=== PATIENT | female | born 1935 | race African-American/Black ===

== ENCOUNTER 2017-04-25 03:05 | Inpatient (IN) | payer MEDICARE, MEDICAID ==
[2017-04-25 04:47] LABS: #Lymphocytes 0.9 thou/uL (1.20-3.40); #Monocytes 0.2 thou/uL (0.11-0.59); #Neutrophils 5.4 thou/uL (1.40-6.50); %Basophils 0.1 % (0.0-1.0); %Eosinophils 0.5 % (0.0-10.0); %Lymphocytes 14.1 % (21.0-51.0); %Monocytes 3.2 % (0.0-10.0); Mean Corpuscular HGB CONC 32.7 g/dL (32.0-36.0); Mean Corpuscular Hemoglobin 29.6 pg (27.0-31.0); Mean Corpuscular Volume 90.3 fl (81.0-99.0); Mean Platelet Volume 9.1 fL (7.4-10.4); Platelet Count 166 thou/uL (130-400); Red Blood Cell (RBC) Count 4.73 mill/uL (4.20-5.40); White Blood Cell (WBC) Count 6.6 thou/uL (4.8-10.8)
[2017-04-25 04:50] LABS: Base Excess-Venous 1.1 mmol/L (-30.0-30.0); Bicarbonate (HCO3v) 25.8 mmol/L (1.0-85.0); CO2 Tension (PvCO2) 40.5 mmHg (41.0-51.0); Calcium, Ionized 1.29 mmol/L (1.12-1.32); Hemoglobin - Calc 16.6 g/dL (12.0-18.0); O2 Tension (PvO2) 93.2 mmHg (35.0-45.0); Potassium 3.8 mmol/L (3.4-4.7); T. Carbon Dioxide 27.1 mmol/L (1.0-85.0); pH (Venous) 7.412 (7.35-7.45); vO2 Saturation-calc 97.3 % (0.0-100.0)
[2017-04-25 04:58] LABS: ALT (SGPT) 9 U/L (8-55); AST (SGOT) 13 U/L (5-34); Albumin 3.4 g/dL (3.4-4.8); Alkaline Phosphatase 70 U/L (40-150); Anion Gap 11 mmol/L (10-20); BUN (Urea Nitrogen) 13 mg/dL (9.8-20.1); Bilirubin, Total 0.3 mg/dL (0.2-1.2); Calc. Creatinine Clearance 0 mL/min (70-130); Calcium 10.5 mg/dL (7.8-10.44); Carbon Dioxide 26 mmol/L (23-31); Chloride 103 mmol/L (98-107); Estimated GFR-MDRD 87; Globulin 4.4 g/dL (2.4-3.5); Glucose 127 mg/dL (83-110); Potassium 3.6 mmol/L (3.5-5.1); Protein, Total 7.8 g/dL (6.0-8.3); Sodium 136 mmol/L (136-145)
[2017-04-25 05:02] LABS: CKMB 0.4 ng/mL (0-6.6); Troponin I 0.024 ng/mL (< 0.028)
[2017-04-25 06:31] LABS: Bilirubin Negative (Negative); Blood, Urine Small (Negative); Clarity CLEAR (Clear); Glucose, Urine (Dipstick) Negative (Negative); Leukocyte Moderate (Negative); Nitrite Positive (Negative); Protein, Urine (Dipstick) Negative (Neg-Trace); Urobilinogen 0.2 mg/dL (0.2-1.0)
[2017-04-25 06:37] LABS: Bacteria/HPF 2+ HPF (None Seen); Hyaline Casts/LPF 4-6 HYALINE CAST LPF (0-3 Hyaline); Squamous Epithelial 0-3 HPF (0-3); WBC/HPF 21-50 HPF (0-3)
[2017-04-25] MEDS ORDERED: Ondansetron ODT 4 MG TAB PO PRN (06:40)
[2017-04-25] MEDS ORDERED: Ondansetron HCl/PF 4 MG/2 ML Vial IVP PRN (06:41)
[2017-04-25] MEDS ORDERED: Acetaminophen 325 MG TAB PO PRN (06:41)
[2017-04-25] MEDS ORDERED: Azithromycin 500 MG, Admixture Fee 1 EACH in Sodium Chloride 0.9% 250 ML 250 ML IVPB SCH (07:00)
[2017-04-25 07:47] VITALS: BMI 27.8
[2017-04-25] MEDS ORDERED: cefTRIAXone\\ROCEPHIN 1 GM, Syringe 0.4 ML in Sterile Water 9.6 ML SLOW IVP SCH (09:00)
[2017-04-25] MEDS ORDERED: Acetaminophen 650 MG/20.3 ML UDCUP PER TUBE PRN (09:07)
[2017-04-25] MEDS ORDERED: guaiFENesin 100 MG/5 ML UDCUP PO PRN (09:17)
--- NOTE | 2017-04-25 09:24 | RAD ---
CHEST ONE VIEW: History: Shortness of breath. Comparison: Same day. FINDINGS: Exam is limited due to rightward patient rotation. Heart size is enlarged. There is dilatation of the pulmonary arteries. Granuloma in the right lung base. Right basilar opacity is present. IMPRESSION: 1. Concern for right basilar airspace opacity. This may reflect pneumonia, atelectasis, or may be seq uellae of patient rotation. Follow up recommended. 2. Pulmonary arterial hypertension. POS: DANAH
--- NOTE | 2017-04-25 09:49 | HP ---
DATE OF CONSULTATION: 04/25/2017 CHIEF COMPLAINT: Cough. HISTORY OF PRESENT ILLNESS: This is a 81-year-old female with a prior history of CVA in 2013 and sub sequent dysphagia and placement of a PEG tube. She presents today with a 2-day history of cough. Cyrus mcclure is currently non-conversant and the history is obtained from her son who is with her at bedside . The patient's son is a marginal historian and indicates that the patient has been having a cough for the last 2 days. At baseline, he indicates she is occasionally able to monosyllable converse and she has been unable to do this over the last 2 days. He is concerned about her ability to swallow. He is concerned about her ability to cough and he wonders if she might be able to "eat again" through he r mouth. The patient appears to have been transferred from another facility initially for hypoxia with initial pulse oximetry of 86% noted on room air at an outside facility. The patient has been placed on nasa l cannula by her emergency department and is being admitted today for concern of pneumonia. REVIEW OF SYSTEMS: Unable to obtain directly from the patient, per her son at bedside, the patient h as not had any fevers, chills, diarrhea, indication of pain or sick contacts within the last week. PAST MEDICAL HISTORY: 1. As per HPI. Patient herself is unable to provide. Looking at prior records and discussing with the patient's son, it appears that patient had CVA in 2013 with subsequent dysphagia and requirement of a PEG tube which was placed at that point in time. 2. Hypertension. 3. Question of aortic stenosis. 4. Seizure disorder. HOME MEDICATIONS: Please see the EMR for full details. The patient's son states that himself and ot her family members administered the patient's medications through her PEG tube. He states the patien t has not been able to take any over the counter medications for her cough over the last 2 days and t hat there have been no changes in the last month. ALLERGIES: No known drug allergies listed in the EMR. FAMILY HISTORY: Recent family history of upper respiratory infection. SOCIAL HISTORY: The patient currently resides at home with family and home health. The patient's so n at bedside endorses a FULL CODE status with the patient at this point in time no active tobacco, al cohol or illicit drug use. PHYSICAL EXAMINATION: VITAL SIGNS: Temperature of 98.1, pulse of 88, respirations 20, satting 92% on 2 liters nasal cannul a, blood pressure of 120/72. GENERAL: The patient is awake. She is alert. She is seated in the bed. She appears to interact, b ut does not vocalize, but does verbalize. HEENT: Slightly dry mucous membranes. Equal ocular motions are intact. Nasal cannula in a nonthera peutic position. CARDIOVASCULAR: S1 and S2. Pulses 2+ bilateral upper extremities, 1+ bilateral lower extremity cass ing pedal edema. RESPIRATORY: Reasonable air movement. No wheezes, rales or rhonchi. Hoarseness throughout. ABDOMEN: PEG tube site is clean, dry, and intact. Positive bowel sounds. Obese abdomen. Nontender to palpation. MUSCULOSKELETAL: Moves bilateral upper extremities independently. LABORATORY DATA AND IMAGING DATA: WBC 6.6, hemoglobin 14.0, hematocrit 42.7, and platelets 166. Sod ium 136, potassium 3.6, chloride 103, bicarbonate 26, BUN 13, creatinine 0.77, glucose 127, calcium 7 .5, total bilirubin 0.3, AST 13, ALT 9, alkaline phosphatase 70, troponin 0.024, subsequently 0.020, serum protein 7.8, albumin 3.4. UA is significant for small blood, positive nitrites, moderate leuko cyte esterase, 11-20 rbc's, 21-50 wbc's, 2+ urine bacteria and hyaline cast. Chest x-ray; no formal read with question of early infiltrate in the right lower lobe bilaterally. ASSESSMENT AND PLAN: 1. This is a 81-year-old female who presents with cough. Currently, continue with supplemental O2. The patient has been empirically given doses of azithromycin and ceftriaxone in the emergency depart ment. We will continue with Levaquin orally with close monitoring of the patient's cardiac status as well and respiratory status. Supportive management otherwise. Continue with sputum culture. Marjan rn by the family for possibility of influenza. We will go ahead and evaluate for that as well. 2. History of stroke and dysphagia. Discussed with the patient and family member at bedside. I rasta bt the patient will have any appreciable regain of ability to intake food at this point in time and w e will consult speech therapy. 3. Diet, continue tube feeding. Activity as tolerated, PT/OT. 4. DVT prophylaxis with Lovenox. Thank you for asking me to care for the patient. Questions or concerns, please contact me at [facility].
[2017-04-26] MEDS ORDERED: Diabetic Tussin 200 MG/10 ML UDCUP PER TUBE PRN (07:33)
[2017-04-26] MEDS ORDERED: Sodium Chloride 0.65% Nasal 44 ML BOT EA NARE PRN (07:33)
[2017-04-26] MEDS ORDERED: Artificial Tears 18 DROP/0.9 ML EA EYE PRN (07:33)
[2017-04-26] MEDS ORDERED: Acetaminophen 325 MG TAB PER TUBE PRN (07:33)
[2017-04-26] MEDS ORDERED: Mag-Al 1200 mg/1200 mg/30 ML UDCUP PER TUBE PRN (07:33)
[2017-04-26] MEDS ORDERED: HYDROcodone/Acetaminophen 5/325 mg Tablet PER TUBE PRN (07:33)
[2017-04-26] MEDS ORDERED: Milk Of Magnesia 30 ML UDCUP PER TUBE PRN (07:33)
[2017-04-26] MEDS ORDERED: Chloraseptic Spray 180 ml Bottle PO PRN (07:33)
[2017-04-26] MEDS ORDERED: Eucerin (Mineral Oil/Petrolatum,White) 30 gm Jar TOP PRN (07:33)
[2017-04-26] MEDS ORDERED: Bisacodyl 10 MG SUPP PR PRN (07:33)
[2017-04-26] MEDS ORDERED: Ondansetron HCl/PF 4 MG/2 ML Vial IVP PRN (07:33)
[2017-04-26] MEDS ORDERED: Ondansetron ODT 4 MG TAB SL PRN (07:33)
[2017-04-26] MEDS ORDERED: Senokot 8.6 MG TAB PER TUBE PRN (07:33)
[2017-04-26] MEDS ORDERED: Loperamide HCl 2 MG CAP PER TUBE PRN (07:33)
[2017-04-26] MEDS ORDERED: Loratadine 10 MG TAB PER TUBE PRN (07:33)
[2017-04-26] MEDS ORDERED: hydrALAZINE 20 MG/ML VIAL SLOW IVP PRN (07:33)
[2017-04-26] MEDS ORDERED: cefTRIAXone\\ROCEPHIN 1 GM in Sodium Chloride 0.9% 100 ML IVPB SCH (07:45)
[2017-04-26] MEDS ORDERED: levETIRAcetam 500 mg/5 ml Oral Solution PER TUBE SCH (09:00)
--- NOTE | 2017-04-26 09:48 | PDOC.PN ---
- Subjective Encounter Start Date: 04/26/17 Encounter Start Time: 08:30 -: non-verbal Patient seen and examined. No overnight events - Objective Resuscitation Status: Resuscitation Status FULL:Full Resuscitation MAR Reviewed: Yes Vital Signs & Weight: Vital Signs (12 hours) Temp Pulse Resp BP Pulse Ox 04/26/17 07:31 97.9 F 96 16 120/60 94 L 04/26/17 04:00 98.3 F 96 18 120/60 94 L 04/26/17 00:00 97.9 F 88 18 138/79 93 L Weight Admit Weight 173 lb 8 oz Weight 173 lb 9.6 oz I&O: 04/25/17 04/26/17 04/27/17 06:59 06:59 06:59 Intake Total 1224 Output Total 1 Balance 1223 Result Diagrams: 04/25/17 03:14 04/25/17 03:14 Additional Labs: Accuchecks 04/25/17 11:32 POC Glucose 142 H Radiology Reviewed by me: Yes (chest xray) Phys Exam - Physical Examination Constitutional: NAD HEENT: PERRLA, moist MMs, sclera anicteric Neck: no JVD, supple Respiratory: no wheezing, no rales, no rhonchi Cardiovascular: RRR, no significant murmur, no rub Gastrointestinal: soft, non-tender, no distention, positive bowel sounds peg+ Musculoskeletal: no edema, pulses present residual aphasia, dysphagia, weakness Lymphatic: no nodes Psychiatric: normal affect Skin: no rash, normal turgor Dx/Plan (1) Acute respiratory failure with hypoxia Code(s): J96.01 - ACUTE RESPIRATORY FAILURE WITH HYPOXIA Status: Resolved (2) Community acquired bacterial pneumonia Code(s): J15.9 - UNSPECIFIED BACTERIAL PNEUMONIA Status: Acute (3) UTI (urinary tract infection) Status: Acute (4) Anxiety and depression Code(s): F41.8 - OTHER SPECIFIED ANXIETY DISORDERS Status: Chronic (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 Code(s): I69.320 - APHASIA FOLLOWING CEREBRAL INFARCTION Status: Chronic (6) Dyslipidemia Code(s): E78.5 - HYPERLIPIDEMIA, UNSPECIFIED Status: Chronic (7) Dysphagia as late effect of cerebrovascular accident (CVA) Code(s): I69.391 - DYSPHAGIA FOLLOWING CEREBRAL INFARCTION Status: Chronic (8) H/O: CVA (cerebrovascular accident) Code(s): Z86.73 - PRSNL HX OF TIA (TIA), AND CEREB INFRC W/O RESID DEFICITS Status: Chronic (9) Hypertension Code(s): I10 - ESSENTIAL (PRIMARY) HYPERTENSION Status: Chronic (10) Seizure disorder as sequela of cerebrovascular accident Code(s): I69.398 - OTHER SEQUELAE OF CEREBRAL INFARCTION; G40.909 - EPILEPSY, UNSP, NOT INTRACTABLE, WITHOUT STATUS EPILEPTICUS Status: Chronic - Plan cont current plan of care, continue antibiotics, PT/OT * continue tube feeding * continue slow IVF * selected home medication reconciled * continue rocephin and levaquin * follow culture * medication reviewed as below * symptomatic treatment. Review of Systems - Review of Systems Other: unable to review due to non verbal status - Medications/Allergies Allergies/Adverse Reactions: Allergies Allergy/AdvReac Type Severity Reaction Status Date / Time No Known Drug Allergies Allergy Verified 08/03/14 15:28 Medications: Current Medications Acetaminophen (Tylenol) 650 mg PER TUBE Q4H PRN PRN Reason: Headache/Fever or Mild Pain Hydrocodone Bitart/Acetaminophen ([place] 5/325) 1 tab PER TUBE Q4H PRN PRN Reason: Moderate Pain (4-6) Al Hydroxide/Mg Hydroxide (Maalox) 15 ml PER TUBE Q4H PRN PRN Reason: Heartburn or Indigestion Albuterol/Ipratropium (Duoneb) 3 ml NEB [id number] JOCELINE Amitriptyline HCl (Elavil) 25 mg PER TUBE HS [facility] Artificial Tears (Tears Naturale) 0 drop EA EYE PRN PRN PRN Reason: Dry Eyes Aspirin (Aspirin Chewable) 81 mg PER TUBE DAILY JOCELINE Atorvastatin Calcium (Lipitor) 20 mg PER TUBE HS JOCELINE Bisacodyl (Dulcolax) 10 mg LA DAILYPRN PRN PRN Reason: Constipation Ezetimibe (Zetia) 10 mg PER TUBE DAILY JOCELINE Enoxaparin Sodium (Lovenox) 30 mg SC 0900 JOCELINE Escitalopram Oxalate (Lexapro) 10 mg PER TUBE DAILY JOCELINE Famotidine (Pepcid) 20 mg PER TUBE BID JOCELINE Guaifenesin (Robitussin) 100 mg PO Q4H PRN PRN Reason: Cough Guaifenesin (Robitussin Sf) 200 mg PER TUBE Q4H PRN PRN Reason: Cough Guaifenesin (Mucinex) 600 mg PER TUBE Q12HR [facility] Hydralazine HCl (Apresoline) 10 mg SLOW IVP Q4H PRN PRN Reason: Systolic BP > 180 Hydrochlorothiazide (Hydrochlorothiazide) 25 mg PO DAILY [facility] Sodium Chloride (Normal Saline 0.9%) 1,000 mls @ 50 mls/hr IV .Q20H [facility] Levofloxacin 500 mg/ Device 100 mls @ 100 mls/hr IVPB 0900 [facility] Ceftriaxone Sodium 1 gm/ (Syringe 0.4 ml/ Sterile Water) 10 mls @ 120 mls/hr SLOW IVP 0900 [facility] Levetiracetam (Keppra Oral Solution) 100 mg PER TUBE BID [facility] Loperamide HCl (Imodium) 2 mg PER TUBE PRN PRN PRN Reason: Diarrhea/Loose Stools Loratadine (Claritin) 10 mg PER TUBE DAILYPRN PRN PRN Reason: Sinus Symptoms Losartan Potassium (Cozaar) 100 mg PER TUBE DAILY [facility] Magnesium Hydroxide (Milk Of Magnesium) 30 ml PER TUBE DAILYPRN PRN PRN Reason: Constipation Metoprolol Tartrate (Lopressor) 50 mg PER TUBE BID [facility] Mineral Oil/White Petrolatum (Eucerin Cream) 0 gm TOP BIDPRN PRN PRN Reason: Dry Skin Ondansetron HCl (Zofran Odt) 4 mg SL Q6H PRN PRN Reason: Nausea/Vomiting Ondansetron HCl (Zofran) 4 mg IVP Q6H PRN PRN Reason: Nausea/Vomiting Phenol (Chloraseptic [place] 180 Ml Bot) 0 ml PO PRN PRN PRN Reason: Sore Throat Polyethylene Glycol (Miralax) 17 gm PER TUBE DAILY [facility] Potassium Chloride (K-Dur) 20 meq PER TUBE DAILY [facility] Pregabalin (Lyrica) 25 mg PER TUBE DAILY [facility] Saccharomyces Boulardii (Florastor) 250 mg PER TUBE DAILY [facility] Senna (Senokot) 2 tab PER TUBE HSPRN PRN PRN Reason: Constipation Sodium Chloride (Flush - Normal Saline) 10 ml IVF Q12HR [facility] Last Admin: 04/25/17 19:54 Dose: 10 ml Sodium Chloride (Flush - Normal Saline) 10 ml IVF PRN PRN PRN Reason: Saline Flush Sodium Chloride ([place] Nasal [place] 0.65%) 0 ml EA NARE QIDPRN PRN PRN Reason: Nasal Congestion
[2017-04-26] MEDS: Sodium Chloride 0.9% 1,000 ML IV SCH (11:25)
[2017-04-26] MEDS: cefTRIAXone\\ROCEPHIN 1 GM, Syringe 0.4 ML in Sterile Water 9.6 ML SLOW IVP SCH (11:26)
[2017-04-26] MEDS: Metoprolol Tartrate 25 MG TAB PER TUBE SCH ×2 (11:27→21:56)
[2017-04-26] MEDS: Hydrochlorothiazide 25 MG TAB PO SCH (11:27)
[2017-04-26] MEDS: Saccharomyces boulardii 250 MG CAP PER TUBE SCH (11:27)
[2017-04-26] MEDS: Losartan 25 MG TAB PER TUBE SCH (11:27)
[2017-04-26] MEDS: Escitalopram Oxalate 10 mg Tablet PER TUBE SCH (11:28)
[2017-04-26] MEDS: Enoxaparin Sodium 30 MG/0.3 ML SYRINGE SC SCH (11:28)
[2017-04-26] MEDS: Famotidine 20 MG TAB PER TUBE SCH ×2 (11:28→21:56)
[2017-04-26] MEDS: Pregabalin 25 MG CAP PER TUBE SCH (11:28)
[2017-04-26] MEDS: Potassium Chloride 20 MEQ TAB PER TUBE SCH (11:28)
[2017-04-26] MEDS: guaiFENesin ER 600 MG TAB PER TUBE SCH ×2 (11:28→21:55)
[2017-04-26] MEDS: Ezetimibe 10 MG TAB PER TUBE SCH (11:28)
[2017-04-26] MEDS: Polyethylene Glycol 3350 17 GM Packet PER TUBE SCH (11:29)
[2017-04-26] MEDS: levETIRAcetam 500 mg/5 ml Oral Solution PER TUBE SCH ×2 (11:31→21:57)
[2017-04-26] MEDS: Atorvastatin Calcium 20 MG TAB PER TUBE SCH (21:55)
[2017-04-26] MEDS: Amitriptyline HCl 25 MG TAB PER TUBE SCH (21:55)
[2017-04-27] MEDS: Sodium Chloride 0.9% 1,000 ML IV SCH ×2 (06:25→23:42)
[2017-04-27] MEDS: Ezetimibe 10 MG TAB PER TUBE SCH (08:54)
[2017-04-27] MEDS: Metoprolol Tartrate 25 MG TAB PER TUBE SCH ×2 (08:55→21:30)
[2017-04-27] MEDS: Potassium Chloride 20 MEQ TAB PER TUBE SCH (08:55)
[2017-04-27] MEDS: Losartan 25 MG TAB PER TUBE SCH (08:56)
[2017-04-27] MEDS: Hydrochlorothiazide 25 MG TAB PO SCH (08:57)
[2017-04-27] MEDS: Famotidine 20 MG TAB PER TUBE SCH ×2 (08:57→21:30)
[2017-04-27] MEDS: Saccharomyces boulardii 250 MG CAP PER TUBE SCH (08:57)
[2017-04-27] MEDS: Pregabalin 25 MG CAP PER TUBE SCH (08:58)
[2017-04-27] MEDS: Escitalopram Oxalate 10 mg Tablet PER TUBE SCH (09:15)
[2017-04-27] MEDS: guaiFENesin ER 600 MG TAB PER TUBE SCH ×2 (09:15→21:30)
[2017-04-27] MEDS: Polyethylene Glycol 3350 17 GM Packet PER TUBE SCH (09:15)
[2017-04-27] MEDS: levETIRAcetam 500 mg/5 ml Oral Solution PER TUBE SCH ×2 (09:15→21:30)
[2017-04-27] MEDS: Enoxaparin Sodium 30 MG/0.3 ML SYRINGE SC SCH (09:15)
[2017-04-27] MEDS: cefTRIAXone\\ROCEPHIN 1 GM, Syringe 0.4 ML in Sterile Water 9.6 ML SLOW IVP SCH (10:49)
--- NOTE | 2017-04-27 16:18 | PDOC.PN ---
- Subjective Encounter Start Date: 04/27/17 Encounter Start Time: 14:30 CC: Dyspnea sub: per RN pt is tolerating tube feeds - Objective Resuscitation Status: Resuscitation Status FULL:Full Resuscitation Vital Signs & Weight: Vital Signs (12 hours) Temp Pulse Resp BP Pulse Ox 04/27/17 08:00 98.4 F 78 16 04/27/17 07:40 98.4 F 78 16 143/82 H 92 L Weight Admit Weight 173 lb 8 oz Weight 173 lb 9.6 oz I&O: 04/26/17 04/27/17 04/28/17 06:59 06:59 06:59 Intake Total 1224 Output Total 1 Balance 1223 Result Diagrams: 04/25/17 03:14 04/25/17 03:14 Dx/Plan - Plan Physical exam: Constitutional: NAD, lying on bed HEENT: moist MMs, sclera anicteric Neck: no JVD, supple Respiratory: no wheezing, no rales, no rhonchi Cardiovascular: RRR, no significant murmur, no rub Gastrointestinal: soft, non-tender, no distention, positive bowel sounds, peg+ Musculoskeletal: no edema 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: residual aphasia, dysphagia, weakness Lymphatic: no nodes Psychiatric: normal Mood Skin: no rash A/P: (1) Acute respiratory failure with hypoxia Code(s): J96.01 - ACUTE RESPIRATORY FAILURE WITH HYPOXIA Status: Resolved (2) Community acquired bacterial pneumonia Code(s): J15.9 - UNSPECIFIED BACTERIAL PNEUMONIA Status: Acute (3) UTI (urinary tract infection) Status: Acute (4) Anxiety and depression Code(s): F41.8 - OTHER SPECIFIED ANXIETY DISORDERS Status: Chronic (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 Code(s): I69.320 - APHASIA FOLLOWING CEREBRAL INFARCTION Status: Chronic (6) Dyslipidemia Code(s): E78.5 - HYPERLIPIDEMIA, UNSPECIFIED Status: Chronic (7) Dysphagia as late effect of cerebrovascular accident (CVA) Code(s): I69.391 - DYSPHAGIA FOLLOWING CEREBRAL INFARCTION Status: Chronic (8) H/O: CVA (cerebrovascular accident) Code(s): Z86.73 - PRSNL HX OF TIA (TIA), AND CEREB INFRC W/O RESID DEFICITS Status: Chronic (9) Hypertension Code(s): I10 - ESSENTIAL (PRIMARY) HYPERTENSION Status: Chronic (10) Seizure disorder as sequela of cerebrovascular accident Code(s): I69.398 - OTHER SEQUELAE OF CEREBRAL INFARCTION; G40.909 - EPILEPSY, UNSP, NOT INTRACTABLE, WITHOUT STATUS EPILEPTICUS Status: Chronic - Plan cont current plan of care, continue antibiotics, PT/OT WILL DC MIV fluids continue tube feeds continue levaquin and rocephin cultures no growth seen Repeat CXR in am Continue breathing treatments Case d/w pt & RN
[2017-04-27] MEDS: Amitriptyline HCl 25 MG TAB PER TUBE SCH (21:30)
[2017-04-27] MEDS: Atorvastatin Calcium 20 MG TAB PER TUBE SCH (21:30)
[2017-04-28 07:55] VITALS: BP 139/74; TEMP 98.9
[2017-04-28] MEDS: Losartan 25 MG TAB PER TUBE SCH (08:45)
[2017-04-28] MEDS: Hydrochlorothiazide 25 MG TAB PO SCH (08:45)
[2017-04-28] MEDS: Saccharomyces boulardii 250 MG CAP PER TUBE SCH (08:45)
[2017-04-28] MEDS: Ezetimibe 10 MG TAB PER TUBE SCH (08:46)
[2017-04-28] MEDS: Escitalopram Oxalate 10 mg Tablet PER TUBE SCH (08:46)
[2017-04-28] MEDS: Metoprolol Tartrate 25 MG TAB PER TUBE SCH (08:46)
[2017-04-28] MEDS: Pregabalin 25 MG CAP PER TUBE SCH (08:46)
[2017-04-28] MEDS: Potassium Chloride 20 MEQ TAB PER TUBE SCH (08:47)
[2017-04-28] MEDS: Famotidine 20 MG TAB PER TUBE SCH (08:47)
[2017-04-28] MEDS: guaiFENesin ER 600 MG TAB PER TUBE SCH (08:47)
[2017-04-28] MEDS: levETIRAcetam 500 mg/5 ml Oral Solution PER TUBE SCH (08:49)
[2017-04-28] MEDS: Enoxaparin Sodium 30 MG/0.3 ML SYRINGE SC SCH (08:49)
[2017-04-28] MEDS: cefTRIAXone\\ROCEPHIN 1 GM, Syringe 0.4 ML in Sterile Water 9.6 ML SLOW IVP SCH (09:19)
[2017-04-28] MEDS: Polyethylene Glycol 3350 17 GM Packet PER TUBE SCH (09:20)
--- NOTE | 2017-04-28 12:43 | PDOC.PN ---
- Subjective Encounter Start Date: 04/28/17 Encounter Start Time: 11:15 Expresses no complaint.. - Objective Resuscitation Status: Resuscitation Status FULL:Full Resuscitation Vital Signs & Weight: Vital Signs (12 hours) Temp Pulse Resp BP Pulse Ox 04/28/17 07:54 98.9 F 80 18 139/74 97 04/28/17 07:13 98.3 F 73 18 04/28/17 07:06 73 18 98 Weight Admit Weight 173 lb 8 oz Weight 173 lb 9.6 oz I&O: 04/27/17 04/28/17 04/29/17 06:59 06:59 06:59 Output Total 3 Balance -3 Result Diagrams: 04/25/17 03:14 04/25/17 03:14 Phys Exam - Physical Examination HEENT: sclera anicteric Neck: no JVD Respiratory: clear to auscultation bilateral Cardiovascular: RRR Gastrointestinal: soft Musculoskeletal: edema present (Left hemiplegia..) Dx/Plan (1) Community acquired bacterial pneumonia Code(s): J15.9 - UNSPECIFIED BACTERIAL PNEUMONIA Status: Acute (2) UTI (urinary tract infection) Status: Acute (3) Aphasia as late effect of stroke Code(s): I69.320 - APHASIA FOLLOWING CEREBRAL INFARCTION Status: Chronic (4) Dyslipidemia Code(s): E78.5 - HYPERLIPIDEMIA, UNSPECIFIED Status: Chronic (5) H/O: CVA (cerebrovascular accident) Code(s): Z86.73 - PRSNL HX OF TIA (TIA), AND CEREB INFRC W/O RESID DEFICITS Status: Chronic (6) Hypertension Code(s): I10 - ESSENTIAL (PRIMARY) HYPERTENSION Status: Chronic - Plan -: Stable. -: Home today . -: f/u with PCP. * .
--- NOTE | 2017-04-28 13:13 | DIS ---
DATE OF ADMISSION: 04/25/2017 DATE OF DISCHARGE: 04/27/2017 DIAGNOSES: Acute respiratory failure, community-acquired pneumonia, urinary tract infection, history of cerebrovascular accident with subsequent aphasia and left hemiplegia, dyslipidemia, hypertension and seizure disorder. CONSULTANTS: None. PROCEDURE PERFORMED: Chest x-ray, IV administration of antibiotics. COURSE OF HOSPITALIZATION: Uncomplicated. Responded well to management. The patient is clinically stable at this time being discharged home. DISCHARGE MEDICATIONS: Please see discharge medication reconciliation sheet. DISCHARGE FOLLOWUP: The patient is to follow up with the primary care physician. For today's physical examination, please refer to the patient's medical work on the progress note sec tion. DISCHARGE TIME: 31 minutes.
--- NOTE | 2017-04-28 15:45 | EKG ---
Test Reason : Blood Pressure : / mmHG Vent. Rate : 081 BPM Atrial Rate : 081 BPM P-R Int : 254 ms QRS Dur : 080 ms QT Int : 392 ms P-R-T Axes : 035 034 -12 degrees QTc Int : 455 ms Sinus rhythm with 1st degree A-V block Inferior infarct , age undetermined Abnormal ECG Confirmed by KERWIN RICHARDS D.O. ([id number]), acquisition editor VIDA THOMPSON ([id number]) on 04/28/2017 3:45:33 PM Referred By: Confirmed By:KERWIN RICHARDS D.O.
== END 2017-04-28 16:35 | disposition home or self-care (01) | DRG 193 ==
LOC: ERS 03:05 → T4-B 04:58
PROVIDERS: ADMIT Family Medicine; ATTEND Family Medicine
DX: J18.9 Pneumonia, unspecified organism (principal); J96.01 Acute respiratory failure with hypoxia; I69.354 Hemiplegia and hemiparesis following cerebral infarction affecting left non-dominant side; N39.0 Urinary tract infection, site not specified; G40.802 Other epilepsy, not intractable, without status epilepticus; R13.10 Dysphagia, unspecified; I69.391 Dysphagia following cerebral infarction; I10 Essential (primary) hypertension; I69.320 Aphasia following cerebral infarction; E78.5 Hyperlipidemia, unspecified; I69.398 Other sequelae of cerebral infarction; F41.9 Anxiety disorder, unspecified; F32.9 Major depressive disorder, single episode, unspecified; Z79.82 Long term (current) use of aspirin; Z79.899 Other long term (current) drug therapy; Z93.1 Gastrostomy status
CPT/HCPCS: 36415; 36416; 51701; 71045; 81003; 81015; 82330; 82803; 87086; 93005; 94640; A4216; A4353; G8978-GP-CN; G8979-GP-CN; G8980-GP-CN; G8987-GO-CM; G8988-GO-CM; G8989-GO-CM; G8996-GN-CN; G8997-GN-CM; J0456; J0696; J1650; J1956; J7050; J7620

== ENCOUNTER 2018-01-05 06:06 | Inpatient (IN) | payer MEDICARE, MEDICAID ==
[2018-01-05 06:37] LABS: Actual Bicarbonate (HCO3a) 20.4 mEq/L (22-28); Analyzer IN Cardio ER; Base Excess (BEa) -3.6 mEq/L (-2.0 to +3.0); CO2 Tension 34.1 mmHg (35.0-45.0); Calcium, Ionized 1.28 mmol/L (1.12-1.30); Carboxyhemoglobin (COHb) 0.5 gm% (0.0-3.0); Hemoglobin (Hb) 14.6 g/dL (12.0-16.0); Potassium - ABG Lab 2.75 mmol/L (3.70-5.30)
[2018-01-05 06:38] LABS: O2 Tension (PaO2) 51.3 mmHg (> 60.0); Puncture Site RRA
[2018-01-05 06:39] LABS: ALV-art Gradient 619.075 (0-20)
[2018-01-05] MEDS ORDERED: Fentanyl 100 MCG/2 ML VIAL ONE (07:46)
[2018-01-05] MEDS ORDERED: fentaNYL Citrate/PF 2,000 MCG in Sodium Chloride 0.9% 60 ML IV SCH ×2 (07:48→08:40)
[2018-01-05] MEDS ORDERED: Ventilator Sedation Protocol 1 EACH FS SCH (08:07)
[2018-01-05] MEDS ORDERED: Bisacodyl 5 MG TAB PO PRN (08:07)
[2018-01-05] MEDS ORDERED: Ondansetron PF 4 MG/2 ML Vial IVP PRN (08:07)
[2018-01-05] MEDS ORDERED: Milk Of Magnesia 30 ML UDCUP PER TUBE PRN (08:07)
[2018-01-05] MEDS ORDERED: Ondansetron ODT 4 MG TAB SL PRN (08:07)
[2018-01-05] MEDS ORDERED: Bisacodyl 10 MG SUPP PR PRN (08:07)
[2018-01-05] MEDS ORDERED: Loperamide HCl 2 MG CAP PER TUBE PRN (08:07)
[2018-01-05] MEDS ORDERED: Senokot S 8.6-50 MG TAB PER TUBE PRN (08:07)
[2018-01-05] MEDS ORDERED: Acetaminophen 325 MG TAB PER TUBE PRN (08:07)
[2018-01-05] MEDS ORDERED: Calcium Carbonate 500 MG ChewTAB PER TUBE PRN (08:07)
[2018-01-05] MEDS ORDERED: Loratadine 10 MG TAB PER TUBE PRN (08:07)
[2018-01-05] MEDS ORDERED: hydrALAZINE 20 MG/ML VIAL SLOW IVP PRN (08:07)
[2018-01-05] MEDS ORDERED: Diabetic Tussin 200 MG/10 ML UDCUP PER TUBE PRN (08:07)
[2018-01-05] MEDS ORDERED: Eucerin (Mineral Oil/Petrolatum,White) 30 gm Jar TOP PRN (08:07)
[2018-01-05] MEDS ORDERED: Artificial Tears 18 DROP/0.9 ML EA EYE PRN (08:07)
[2018-01-05] MEDS ORDERED: Propofol BOLUS 1,000 MG/100 ML VIAL IV PRN (08:40)
[2018-01-05] MEDS ORDERED: Lorazepam 2 MG/ML VIAL SLOW IVP PRN ×2 (08:40→11:52)
[2018-01-05] MEDS ORDERED: Morphine 2 MG/ML SYRINGE SLOW IVP PRN (08:40)
[2018-01-05] MEDS ORDERED: DISCONTINUE PREVIOUS NARCOTIC PAIN MEDICATIONS AND BENZODIAZEPINES FS SCH (08:40)
[2018-01-05] MEDS ORDERED: Fentanyl BOLUS 250 ML IVPB PRN (08:40)
[2018-01-05] MEDS: Sodium Chloride 0.9% 1,000 ML IV SCH ×2 (08:53→12:21)
[2018-01-05] MEDS: Vancomycin HCl 1.5 GM in Sodium Chloride 0.9% 250 ML 300 ML IVPB SCH ×2 (08:53→21:14)
[2018-01-05] MEDS: Piperacillin/Tazobactam 3.375 GM in Sodium Chloride 0.9% 100 ML IVPB SCH ×3 (08:54→20:36)
--- NOTE | 2018-01-05 09:53 | RAD ---
CHEST 1 VIEW: Date: 01/05/18 HISTORY: Dyspnea. COMPARISON: Radiograph same date. FINDINGS: There is volume loss of the right upper and lower lobes. Calcified granuloma left lung base. Enteric tube tip at gastric body. IMPRESSION: Extensive volume loss of right hemithorax is new. This may represent mucus plugging. Bronchoscopy is recommended. POS: SVETLANA
[2018-01-05] MEDS: Enoxaparin Sodium 40 MG/0.4 ML SYRINGE SC SCH (09:55)
[2018-01-05] MEDS: Saccharomyces boulardii 250 MG CAP PER TUBE SCH (09:57)
[2018-01-05] MEDS: Famotidine/PF 20 mg/2ml Vial SLOW IVP SCH ×2 (09:57→20:30)
[2018-01-05] MEDS: Propofol 1,000 MG/100 ML VIAL IV PRN ×2 (10:15→20:27)
--- NOTE | 2018-01-05 10:27 | HP ---
PRIMARY CARE PHYSICIAN: Dr. Mitchell. REASON FOR ADMISSION: Acute respiratory failure, aspiration pneumonitis. HISTORY OF PRESENT ILLNESS: An 82-year-old -I[place] female who has underlying history of str tamy with left-sided upper and lower extremity weakness as well as residual dysphagia on tube feeding. The patient has PEG tube in and the patient's family member feeding her through the PEG tube as a c ontinuous feeding. Yesterday last night, the patient had acute onset of vomiting. The patient also regurgitated feeding material through the nose and subsequently the patient was having gurgling sound and she was having increasing respiratory distress. Paramedics were called, at that time, the patient was saturating on ly 85%. She was taken to [facility] where the patient required intubation for respi ratory distress. Subsequently, the patient was transferred [facility] The patient's daughter was present at bedside who provided most of the history. The patient's daughter reports that normally she is able to talk on phone, but for the last couple of days, she was more lethargic. She is mostly bed bound. She did not have any fever or chills. She did not have a ny UTI symptoms. She did not have any constipation, diarrhea, melena or hematochezia. REVIEW OF SYSTEMS: All review of systems tried to review with the patient, but unable to review at t his point because of intubated status and the patient is also baseline demented with poor cognitive s tatus. ALLERGIES: No known drug allergy. CURRENT HOME MEDICATIONS: Metoprolol 50 mg twice daily, Zocor 40 mg at bedtime, Lexapro 10 mg daily, amitriptyline 25 mg daily, potassium chloride 20 mEq daily, aspirin 81 mg daily, Lyrica 25 mg daily, hydrochlorothiazide 25 mg daily. PAST MEDICAL HISTORY: History of hemorrhagic cerebrovascular accident in 08/2013 with residual left upper and lower extremity weakness with a baseline dysphagia on tube feeding, hypertension, dyslipide ernesto, CKD stage 2. PAST SURGICAL HISTORY: PEG tube placement in 2013. PAST PSYCHIATRIC HISTORY: Anxiety and depression. SOCIAL HISTORY: The patient currently lives at home with her daughter. No history of tobacco, alcoh ol or illicit drug abuse. She has a remote history of smoking. She had a stroke in 2013 and subsequ ently she required rehab placement and after discharge from rehabilitation, she is at home and her fa kimberly member taking care of her. She is mostly bed bound. She is on continuous tube feeding. FAMILY HISTORY: No family history of coronary artery disease, stroke or cancer as per daughter. EMERGENCY ROOM COURSE: At [facility], the patient was given IV fluid 2 liter, ketam ine and rocuronium before intubation, Zosyn and levofloxacin was given as well as Flagyl was given. The patient received another liter of fluid in our emergency room. PHYSICAL EXAMINATION: VITAL SIGNS: On arrival to our emergency room, blood pressure 106/59, pulse 72, respiratory rate 14 on ventilator, temperature 96.3, saturation 98% on ventilator, weight 89.7 kilograms. GENERAL: The patient is currently intubated. No obvious acute distress. HEENT: Head: Normocephalic, atraumatic. Eyes: Pupils round, reactive to light. Extraocular muscl e intact. ENT: Endotracheal tube in place. Moist mucous membranes. NECK: Supple, no JVD, no thyromegaly, no carotid bruits. LUNGS: Air entry reduced on the right side. Few scattered rales noted on the left side. CARDIAC: S1, S2 regular without any murmur. ABDOMEN: Obesity present. PEG tube in place. No distention. Bowel sounds present. BACK: Unremarkable, no CVA tenderness. EXTREMITIES: Upper extremity, passive movement of all joints are normal. Noted mild increased spast icity on the left side. Lower extremity, passive movement of all joints are normal. Noted increased spasticity on the left side. NEUROLOGIC: Patient is currently intubated. Unable to assess at this point because of intubated sta tus. SKIN: No skin rash. HEMATOLOGIC: No lymphadenopathy. IMAGING STUDIES: Initial chest x-ray was normal and subsequent repeat chest x-ray showing collapse o f the lung. EKG showing first-degree AV block, nonspecific ST-T changes. ASSESSMENT AND PLAN: 1. Acute respiratory failure with hypoxia secondary to aspiration pneumonia. The patient required i ntubation for hypoxia and respiratory distress at this point. Repeat chest x-ray showing collapse of the lung and suspecting mucous plug versus endotracheal tube related. Pulmonary group will be consu lted. Further treatment will defer to them. She may need bronchoalveolar lavage. At this point, ve ntilator will be managed by pulmonary group and we will closely monitor in CCU. 2. Acute aspiration pneumonia. The patient had vomiting and she aspirated feeding material. Curren tly, she is hypoxic as well as she has elevated lactic acidosis. The patient is at risk for worsenin g of her respiratory status. At this point, we will start prophylactically vancomycin, Zosyn, Solu-M edrol 40 mg IV q.6 hours. Pulmonary on the case. We are suspecting gram positive, gram negative ave and oral anaerobes as etiology. 3. Lactic acidosis, likely due to hypoxia and sepsis. We will repeat lactic acid level again tomorr ow. 4. Acute encephalopathy likely due to hypoxia. 5. History of cerebrovascular accident with residual left-sided weakness. The patient has residual weakness and residual dysphagia. She will need supportive care. 6. Hypertension, but currently low blood pressures, so we will hold on antihypertensive medication. 7. Dyslipidemia. We will resume the patient with statin therapy via PEG tube. 8. Anxiety and depression. We will resume amitriptyline, Lexapro via PEG tube. 9. Deep venous thrombosis prophylaxis. Lovenox 40 mg subcu daily. 10. Gastrointestinal prophylaxis, Pepcid 20 mg IV b.i.d. 11. Code status, spoke with the patient's daughter at bedside and confirmed full code status. She i s the decision maker for patient. Total time spent providing critical care to this patient is 31 minutes in the emergency room.
[2018-01-05] MEDS ORDERED: levETIRAcetam In NaCl (Iso-Os) 1,500 MG in Premix Bag 1 BAG IVPB SCH (11:00)
--- NOTE | 2018-01-05 11:00 | CON ---
DATE OF SERVICE: 01/05/2018 SERVICE: Pulmonary Medicine. REASON FOR CONSULTATION: Respiratory failure. HISTORY OF PRESENT ILLNESS: The patient is an 82-year-old white female with past medical history sig nificant for stroke with left-sided hemiparesis/paralysis. She has a G-tube because of dysphagia. E ither way, she was in her usual state of health until yesterday. She was unable to communicate and h er mentation was poor. As such, EMS services were contacted. Ultimately, she was intubated for airw ay protection. She was tucked into the ICU and initiated on broad spectrum antibiotics directed a po ssible lung infection. She cannot provide any additional elements of the history right now and is cu rrently intubated and sedated. Otherwise, there has been no known interval change to her condition. I do not have any reports that she had any infectious profile that were occurring over the last coup le of days. PAST MEDICAL HISTORY: 1. 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 2. Hypertension. 3. Aortic stenosis. 4. Seizure disorder. PAST SURGICAL HISTORY: PEG tube placement. FAMILY HISTORY: Noncontributory. SOCIAL HISTORY: The patient lives at home with her daughter. She has no exposure to chemicals, dust asbestos or tuberculosis. She does not use any alcohol, tobacco, or illicit drug products. ALLERGIES: No known drug allergies. MEDICATIONS: List of her inpatient medications were reviewed. No specific updates were made at this time. REVIEW OF SYSTEMS: This cannot be obtained as the patient is currently intubated and sedated. PHYSICAL EXAMINATION: VITAL SIGNS: Afebrile, pulse 80, blood pressure 139/74, respirations 18, saturation 97% on room air. GENERAL: The patient is awake, alert, no apparent distress. LUNGS: Decent air entry. There is a slightly prolonged expiratory phase. I do not appreciate any w heezing or crackles. HEART: Normal rate, regular. ABDOMEN: Soft, nontender, nondistended. Bowel sounds are positive. MUSCULOSKELETAL: No cyanosis or clubbing. No pitting in the bilateral lower extremities. LABORATORY DATA: WBC 7.1, its otherwise unremarkable, though there is a neutrophil predominance of 7 6%. A pH 7.40, pCO2 of 34, pO2 of 51, corresponding to saturation of 86% on 100% FiO2 and a PEEP of 6. Basic metabolic profile was essentially unremarkable. Creatinine 0.82. Liver function studies a re unremarkable. Lactate is up trending to 5.3. Troponin 0.038. Anion gap 17. Urinalysis is only positive for proteinuria. Influenza A and B are unremarkable. IMAGING: Chest x-ray demonstrates endotracheal tube in good position. There is significant volume l oss on the right side with collapse of the right upper lobe and likely the right middle lobe. Otherw ise, I do not see any focal consolidating changes. On the chest x-ray that was done 2 hours before, I truthfully did not see any significant degree of pleural effusions, or consolidating changes. ASSESSMENT: 1. Acute hypoxic respiratory failure. 2. Metabolic encephalopathy. 3. Community-acquired pneumonia, suspected. 4. History of stroke with residual dysphagia and hemiparesis. DISCUSSION AND PLAN: We will initiate tube feeds. We will proceed with a bronchoscopy today in orde r to liberate any mucous plugs that may be present. It will also give us the opportunity to send Gra m stain and culture from deep in her lung. I will continue the broad spectrum antibiotics, but will be able to back off on her steroids to touch. We will repeat a lactate at 10:00. If this is not imp roving, a couple liters of IV fluids will be provided. She will certainly remain in the ICU for the next 24 hours. Hopefully, once her oxygen requirements improved dramatically, we can consider extuba tion, but that will not be today. CRITICAL CARE TIME: 30 minutes.
[2018-01-05] MEDS ORDERED: Sodium Chloride 0.9% 1,000 ML IV SCH (11:45)
--- NOTE | 2018-01-05 17:21 | OP ---
DATE OF PROCEDURE: 01/05/2018 SERVICE: Pulmonary Medicine. PROCEDURES: Fiberoptic bronchoscopy with: 1. Visual airway inspection. 2. Bronchoalveolar lavage from the right upper lobe. PREPROCEDURE DIAGNOSES: 1. Acute hypoxic respiratory failure. 2. Right upper lobe collapse. POSTPROCEDURE DIAGNOSES: 1. Acute hypoxic respiratory failure. 2. Right upper lobe collapse. PROCEDURE RN HOSPICE: Caleb Millan M.D. PREANESTHESIA ASSESSMENT: H&P had been performed. The patient's medications and allergies were reviewed. We discussed the rationale for performing the procedure as well as risks, benefits, and alternative options with the patient' s immediate family members at bedside prior to initiating this procedure. DESCRIPTION OF PROCEDURE: A timeout was performed, identifying the correct procedure and patient with name and date of . A diagnostic fiberoptic bronchoscope was introduced through the existing endotracheal tube. It was advanced into the trachea where a tracheobronchial tree inspection was carried out with clear identification of the right upper lobe, right middle lobe, right lower lobe, left upper lobe, lingula, and left lower lobe. Anatomy was normal to the segmental level. Bronchioalveolar lavage was obtained from the right upper lobe. Multiple bronchial plugs were suctioned and lavaged. Ultimately, there was no significant bleeding and bronchoscope was subsequently removed from the patient. FINDINGS: 1. No endobronchial disease was identified. 2. Secretions were thick, but minimal. 3. Endobronchial mucus plugs were suctioned from the right upper lobe. SPECIMENS OBTAINED. Gram stain and culture of the BAL specimen. COMPLICATIONS: None. ESTIMATED BLOOD LOSS: None. DISPOSITION: The patient will remain on mechanical ventilation in the ICU. [facility]
[2018-01-06] MEDS: Sodium Chloride 0.9% 1,000 ML IV SCH (02:14)
[2018-01-06] MEDS: Piperacillin/Tazobactam 3.375 GM in Sodium Chloride 0.9% 100 ML IVPB SCH ×4 (03:16→21:32)
[2018-01-06 05:39] LABS: ALT (SGPT) 11 U/L (8-55); AST (SGOT) 24 U/L (5-34); Albumin 2.8 g/dL (3.4-4.8); Alkaline Phosphatase 34 U/L (40-150); Anion Gap 11 mmol/L (10-20); BUN (Urea Nitrogen) 14 mg/dL (9.8-20.1); Bilirubin, Total 0.6 mg/dL (0.2-1.2); Calc. Creatinine Clearance 68 mL/min (70-130); Calcium 9.3 mg/dL (7.8-10.44); Carbon Dioxide 22 mmol/L (23-31); Chloride 108 mmol/L (98-107); Estimated GFR-MDRD 72; Globulin 3.7 g/dL (2.4-3.5); Glucose 155 mg/dL (83-110); Potassium 3.3 mmol/L (3.5-5.1); Protein, Total 6.5 g/dL (6.0-8.3); Sodium 138 mmol/L (136-145)
[2018-01-06 05:45] LABS: Band 38 % (5-11); Lymphocytes 5 % (21-51); MDiff Complete? YES; Mean Corpuscular Volume 93.4 fL (78.0-98.0); Mean Platelet Volume 9.4 fL (7.4-10.4); Monocytes 4 % (0-10); Neutrophil 53 % (42-75); Platelet Count 133 thou/uL (130-400); White Blood Cell (WBC) Count 10.6 thou/uL (4.8-10.8)
[2018-01-06] MEDS: Enoxaparin Sodium 40 MG/0.4 ML SYRINGE SC SCH (08:42)
[2018-01-06] MEDS: Famotidine/PF 20 mg/2ml Vial SLOW IVP SCH ×2 (08:44→21:32)
[2018-01-06] MEDS: Saccharomyces boulardii 250 MG CAP PER TUBE SCH (08:44)
[2018-01-06] MEDS: Vancomycin HCl 1.5 GM in Sodium Chloride 0.9% 250 ML 300 ML IVPB SCH (08:50)
[2018-01-06 09:09] LABS: Lactic Acid 6.7 mmol/L (0.5-2.2)
--- NOTE | 2018-01-06 09:17 | RAD ---
CHEST 1 VIEW: Date: 01/06/18 HISTORY: Ventilated patient. COMPARISON: Radiograph from prior day. FINDINGS: There is extensive edema throughout the lungs. There is an abnormal left perihilar opacity. Moderate effusions. Endotracheal tube tip is above the jorge approximately 2.7 cm. IMPRESSION: 1. Worsening pulmonary edema and small effusions. 2. Abnormal left perihilar opacity. CT of chest with contrast recommended. Differential includes darcy nopathy, pulmonary arterial hypertension, and aortic dissection/aneurysm. POS: SVETLANA
[2018-01-06] MEDS ORDERED: Potassium Chloride 20 MEQ TAB PER TUBE SCH (10:15)
[2018-01-06] MEDS ORDERED: Sodium Chloride 0.9% 1,000 ML IV SCH (10:16)
--- NOTE | 2018-01-06 10:25 | PRG ---
DATE OF SERVICE: 01/06/2018 SERVICE: Pulmonary Medicine. INTERVAL HISTORY: The patient is doing outstanding from a respiratory standpoint. Her oxygen requirements have improved dramatically. She is down to 5 of PEEP and 30% FiO2 and she is maintaining good saturations. She cannot provide any additional elements of the history because she is requiring sedation , but on a holiday this morning, she was following commands with her right side. Her left side was not working, but this is baseline for her. Otherwise, there has been no interval change to her condition. Nursing reports no overnight events. PHYSICAL EXAMINATION: VITAL SIGNS: T-max overnight 101.1, pulse 103, blood pressure 118/60, respirations 14, saturation 100% on 30% FiO2 and a PEEP of 5. GENERAL: The patient is intubated and sedated. HEENT: Normocephalic, atraumatic. Sclerae are white. Conjunctivae are pink. Oral mucosa is moist without lesions. LUNGS: Decent air entry. No prolonged expiratory phase is identified. HEART: Normal rate, regular. ABDOMEN: Soft, nontender, nondistended. Bowel sounds are positive. MUSCULOSKELETAL: No cyanosis or clubbing. There is no pitting in the bilateral lower extremities. GENITOURINARY: Durham catheter in place. LABORATORY DATA: WBC 10.6, hemoglobin 13.0, platelets 133,000. Band count is 38%. Potassium 3.3, creatinine 0.91, which is stable. Lactate remains elevated at 6.7. Liver function studies are unremarkable. Magnesium 1.3. Blood cultures x2 and respiratory cultures remain negative to date. IMAGING: Chest x-ray demonstrates an endotracheal tube in good position. There is a wide mediastinum. There is pleural effusion, that is likely layering on the right side and also small pleural effusion on the left. Cephalization is also noted. ASSESSMENT: 1. Acute hypoxic respiratory failure. 2. Metabolic encephalopathy. 3. Community-acquired pneumonia. 4. 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 5. Hypokalemia. 6. Hypomagnesemia. DISCUSSION AND PLAN: We will proceed with getting a CT of the chest. Since she is going down, we will also obtain one of the abdomen and pelvis. It is not clear to me where this persistent elevated lactate is coming from. I will get an ABG to confirm that we are not dealing with a lactic acidosis. She will remain on mechanical ventilation until we can clarify some of these underlying issues. If she wakes up smoothly, spontaneous breathing trial and extubation will be considered. Critical care time: 30 minutes. REFUGIO
[2018-01-06] MEDS ORDERED: Magnesium Sulfate 4 GM in Sodium Chloride 0.9% 250 ML 250 ML IVPB SCH (10:30)
[2018-01-06 10:33] LABS: Actual Bicarbonate (HCO3a) 17.7 mEq/L (22-28); Base Excess (BEa) -5.1 mEq/L (-2.0 to +3.0); CO2 Tension 27.4 mmHg (35.0-45.0); Calcium, Ionized 1.25 mmol/L (1.12-1.30); Carboxyhemoglobin (COHb) 1.3 gm% (0.0-3.0); Hemoglobin (Hb) 13.6 g/dL (12.0-16.0); Potassium - ABG Lab 3.18 mmol/L (3.70-5.30); pH, Arterial 7.43 (7.35-7.45)
[2018-01-06 10:37] LABS: O2 Tension (PaO2) 50.8 mmHg (> 60.0); Puncture Site RRA
--- NOTE | 2018-01-06 10:41 | PDOC.PN ---
- Subjective Encounter Start Date: 01/06/18 Encounter Start Time: 09:20 -: old records requested/rev Patient seen and examined. pt is intubated. No overnight events - Objective Resuscitation Status: Resuscitation Status FULL:Full Resuscitation MAR Reviewed: Yes Vital Signs & Weight: Vital Signs (12 hours) Pulse Resp BP Pulse Ox 01/06/18 10:00 31 H 01/06/18 08:00 14 01/06/18 07:15 100 01/06/18 07:14 90 107/60 01/06/18 07:13 93 17 100 01/06/18 02:38 98 109/53 L Weight Weight 192 lb 7.417 oz Most Recent Monitor Data Heart Rate from ECG 109 NIBP 159/65 NIBP BP-Mean 96 Respiration from ECG 25 SpO2 98 I&O: 01/05/18 01/06/18 01/07/18 06:59 06:59 06:59 Intake Total 4936 60 Output Total 1509 90 Balance 3427 -30 Result Diagrams: 01/06/18 04:58 01/06/18 04:58 Radiology Reviewed by me: Yes (chest xray reviewed) EKG Reviewed by me: Yes Phys Exam - Physical Examination Constitutional: NAD intubated HEENT: PERRLA, sclera anicteric Neck: no JVD, supple Respiratory: no wheezing, no rhonchi coarse sound, more on right side Cardiovascular: RRR, no rub SM+ over precordium Gastrointestinal: soft, no distention, positive bowel sounds PEG+ Musculoskeletal: no edema, pulses present has residual weakness on left side Lymphatic: no nodes Skin: no rash, normal turgor Dx/Plan (1) Acute respiratory failure with hypoxemia Code(s): J96.01 - ACUTE RESPIRATORY FAILURE WITH HYPOXIA Status: Acute (2) Aspiration pneumonia Code(s): J69.0 - PNEUMONITIS DUE TO INHALATION OF FOOD AND VOMIT Status: Acute (3) Hypokalemia Code(s): E87.6 - HYPOKALEMIA Status: Acute (4) Hypomagnesemia Code(s): E83.42 - HYPOMAGNESEMIA Status: Acute (5) Lactic acidosis Code(s): E87.2 - ACIDOSIS Status: Acute (6) Mucus plugging of bronchi Code(s): J98.09 - OTHER DISEASES OF BRONCHUS, NOT ELSEWHERE CLASSIFIED Status : Acute (7) Anxiety and depression Code(s): F41.8 - OTHER SPECIFIED ANXIETY DISORDERS Status: Chronic (8) Dyslipidemia Code(s): E78.5 - HYPERLIPIDEMIA, UNSPECIFIED Status: Chronic (9) Hemiparesis and other late effects of cerebrovascular accident Code(s): I69.359 - HEMIPLGA FOLLOWING CEREBRAL INFARCTION AFFECTING UNSP SIDE; I69.398 - OTHER SEQUELAE OF CEREBRAL INFARCTION Status: Chronic (10) Hypertension Code(s): I10 - ESSENTIAL (PRIMARY) HYPERTENSION Status: Chronic (11) Seizure disorder as sequela of cerebrovascular accident Code(s): I69.398 - OTHER SEQUELAE OF CEREBRAL INFARCTION; G40.909 - EPILEPSY, UNSP, NOT INTRACTABLE, WITHOUT STATUS EPILEPTICUS Status: Chronic - Plan cont current plan of care, continue antibiotics, respiratory therapy * medication reviewed as below * symptomatic treatment * continue vancomycin and zosyn * replace magnesium sulfate and potassium chloride * ventilator as per pulmonary * monitor labs . Review of Systems - Review of Systems Other: unable to review due to intubated status - Medications/Allergies Allergies/Adverse Reactions: Allergies Allergy/AdvReac Type Severity Reaction Status Date / Time No Known Drug Allergies Allergy Verified 08/03/14 15:28 Medications: Current Medications Acetaminophen (Tylenol) 650 mg PER TUBE Q4H PRN PRN Reason: Headache/Fever/Mild Pain (1-3) Last Admin: 01/05/18 20:42 Dose: 650 mg Albuterol/Ipratropium (Duoneb) 3 ml NEB [id number] [facility] Last Admin: 01/06/18 07:13 Dose: 3 ml Artificial Tears (Tears Naturale) 2 drop EA EYE PRN PRN PRN Reason: Dry Eyes Bisacodyl (Dulcolax) 10 mg PO DAILYPRN PRN PRN Reason: Constipation Bisacodyl (Dulcolax) 10 mg [place] DAILYPRN PRN PRN Reason: Constipation Calcium Carbonate (Tums) 1,000 mg PER TUBE Q4H PRN PRN Reason: Heartburn or Indigestion Enoxaparin Sodium (Lovenox) 40 mg SC 0900 [facility] Last Admin: 01/06/18 08:42 Dose: 40 mg Famotidine (Pepcid) 20 mg SLOW IVP Q12HR [facility] Last Admin: 01/06/18 08:44 Dose: 20 mg Guaifenesin (Robitussin Sf) 200 mg PER TUBE Q4H PRN PRN Reason: Cough Hydralazine HCl (Apresoline) 10 mg SLOW IVP Q4H PRN PRN Reason: SBP Greater Than 170 Fentanyl Citrate 2,000 mcg/ (Sodium Chloride) 100 mls @ 0 mls/hr IV INF [facility]; Protocol Stop: 02/04/18 07:48 Piperacillin Sod/Tazobactam (Sod 3.375 gm/ Sodium Chloride) 100 mls @ 200 mls/ hr IVPB 0300,0900,1500,2100 [facility] Last Admin: 01/06/18 08:43 Dose: 100 mls Vancomycin HCl 1.5 gm/ Sodium (Chloride) 300 mls @ 200 mls/hr IVPB Q12HR [facility] Last Admin: 01/06/18 08:50 Dose: 300 mls Fentanyl Citrate 2,000 mcg/ (Sodium Chloride) 100 mls @ 0 mls/hr IV INF [facility]; Protocol Stop: 02/04/18 08:40 Fentanyl Citrate (Fentanyl Bolus) 250 mls @ 0 mls/hr IVPB PRN PRN PRN Reason: Breakthrough pain/agitation Stop: 02/04/18 08:40 Levetiracetam 500 mg/ Device 100 mls @ 200 mls/hr IVPB BID [facility] Last Admin: 01/06/18 08:43 Dose: 100 mls Magnesium Sulfate 4 gm/ Sodium (Chloride) 258 mls @ 86 mls/hr IVPB NOW [facility] Stop: 01/06/18 13:29 Last Admin: 01/06/18 10:27 Dose: 258 mls Sodium Chloride (Normal Saline 0.9%) 1,000 mls @ 0 mls/hr IV .Q0M [facility] Labetalol HCl (Normodyne) 20 mg SLOW IVP Q4H PRN PRN Reason: SBP Greater Than 170 Loperamide HCl (Imodium) 2 mg PER TUBE PRN PRN PRN Reason: Diarrhea/Loose Stools Loratadine (Claritin) 10 mg PER TUBE DAILYPRN PRN PRN Reason: Sinus Symptoms Lorazepam (Ativan) 2 mg SLOW IVP Q2H PRN PRN Reason: .SEIZURE ACTIVITY Last Admin: 01/05/18 12:00 Dose: 2 mg Magnesium Hydroxide (Milk Of Magnesium) 30 ml PER TUBE Q8H PRN PRN Reason: Constipation Methylprednisolone Sodium Succinate (Solu-Medrol) 40 mg IVP DAILY [facility] Last Admin: 01/06/18 08:44 Dose: 40 mg Mineral Oil/White Petrolatum (Eucerin Cream) 0 gm TOP BIDPRN PRN PRN Reason: Dry Skin Discontinue Previous Narcotic Pain Medications And Benzodiazepines 1 each FS .ONE [facility] Stop: 02/04/18 08:40 Ondansetron HCl (Zofran Odt) 4 mg SL Q6H PRN PRN Reason: Nausea/Vomiting Ondansetron HCl (Zofran) 4 mg IVP Q6H PRN PRN Reason: Nausea/Vomiting Potassium Chloride (Klor-Con) 40 meq PO Q4H [facility] Stop: 01/06/18 14:31 Propofol (Diprivan) 1,000 mg IV INF PRN; Protocol PRN Reason: TO ACHIEVE GOAL RASS Stop: 02/04/18 08:40 Last Admin: 01/05/18 20:27 Dose: 1,000 mg Propofol (Diprivan Bolus) 20 mg IV Q5MIN PRN PRN Reason: BREAKTHROUGH AGITATION Stop: 02/04/18 08:40 Saccharomyces Boulardii (Florastor) 250 mg PER TUBE DAILY [facility] Last Admin: 01/06/18 08:44 Dose: 250 mg Senna/Docusate Sodium (Senokot S) 2 tab PER TUBE BID PRN PRN Reason: Constipation
[2018-01-06] MEDS ORDERED: Potassium Phosphate 15 MMOL in Sodium Chloride 0.9% 250 ML 250 ML IVPB SCH (11:00)
[2018-01-06 20:46] LABS: Vancomycin, Trough 32.3 ug/mL
[2018-01-06] MEDS ORDERED: VANCOMYCIN IVPB PRN (22:31)
[2018-01-07] MEDS: Piperacillin/Tazobactam 3.375 GM in Sodium Chloride 0.9% 100 ML IVPB SCH ×2 (02:59→08:38)
[2018-01-07 05:06] LABS: Lactic Acid 1.8 mmol/L (0.5-2.2)
[2018-01-07 05:18] LABS: Band 15 % (5-11); Hemoglobin 12.4 g/dL (12.0-16.0); Lymphocytes 8 % (21-51); MDiff Complete? YES; Mean Corpuscular HGB CONC 32.1 g/dL (32.0-36.0); Mean Corpuscular Hemoglobin 29.2 pg (27.0-31.0); Mean Platelet Volume 9.2 fL (7.4-10.4); Monocytes 6 % (0-10); Neutrophil 71 % (42-75); Platelet Count 147 thou/uL (130-400); RBC Distribution Width 12.2 % (11.5-14.5); Red Blood Cell (RBC) Count 4.25 mill/uL (4.20-5.40); White Blood Cell (WBC) Count 11.6 thou/uL (4.8-10.8)
[2018-01-07 05:30] LABS: ALT (SGPT) 12 U/L (8-55); AST (SGOT) 24 U/L (5-34); Alkaline Phosphatase 36 U/L (40-150); Anion Gap 12 mmol/L (10-20); BUN (Urea Nitrogen) 15 mg/dL (9.8-20.1); Bilirubin, Total 0.7 mg/dL (0.2-1.2); Calc. Creatinine Clearance 67 mL/min (70-130); Calcium 9.2 mg/dL (7.8-10.44); Carbon Dioxide 21 mmol/L (23-31); Chloride 116 mmol/L (98-107); Estimated GFR-MDRD 70; Globulin 3.5 g/dL (2.4-3.5); Glucose 128 mg/dL (83-110); Magnesium 2.3 mg/dL (1.6-2.6); Potassium 4.2 mmol/L (3.5-5.1); Protein, Total 6.5 g/dL (6.0-8.3); Sodium 145 mmol/L (136-145)
[2018-01-07] MEDS ORDERED: Sodium Phosphate 60 MEQ/15 ML VIAL IVPB SCH (07:15)
[2018-01-07] MEDS ORDERED: Sodium Phosphate 30 MMOL in Sodium Chloride 0.9% 250 ML 250 ML IVPB SCH (07:30)
[2018-01-07] MEDS: Enoxaparin Sodium 40 MG/0.4 ML SYRINGE SC SCH (08:37)
[2018-01-07] MEDS: Famotidine/PF 20 mg/2ml Vial SLOW IVP SCH (08:37)
[2018-01-07] MEDS: Saccharomyces boulardii 250 MG CAP PER TUBE SCH (08:37)
[2018-01-07 09:23] LABS: Vancomycin, Random 22.2 ug/mL (See Comment)
[2018-01-07] MEDS ORDERED: Vancomycin HCl 1.5 GM in Sodium Chloride 0.9% 250 ML 300 ML IVPB SCH ×2 (10:00→18:00)
--- NOTE | 2018-01-07 10:16 | PDOC.PN ---
- Subjective Encounter Start Date: 01/07/18 Encounter Start Time: 09:50 Patient seen and examined. pt is intubated. No overnight events - Objective Resuscitation Status: Resuscitation Status FULL:Full Resuscitation MAR Reviewed: Yes Vital Signs & Weight: Vital Signs (12 hours) Pulse Resp BP Pulse Ox 01/07/18 08:36 101 H 21 H 99 01/07/18 08:00 18 01/07/18 07:17 100 01/07/18 06:50 102 H 174/78 H 01/07/18 06:46 95 20 99 01/07/18 06:00 26 H 01/07/18 04:00 21 H 01/07/18 02:22 106 H 01/07/18 02:00 21 H 01/07/18 00:00 24 H 01/06/18 23:37 95 22 H 100 01/06/18 22:20 102 H Weight Weight 194 lb 0.108 oz Most Recent Monitor Data Heart Rate from ECG 110 NIBP 157/84 NIBP BP-Mean 108 Respiration from ECG 23 SpO2 100 I&O: 01/06/18 01/07/18 01/08/18 06:59 06:59 06:59 Intake Total 4936 3096 30 Output Total 1509 825 120 Balance 3427 2271 -90 Result Diagrams: 01/07/18 04:25 01/07/18 04:25 EKG Reviewed by me: Yes (nsr) Phys Exam - Physical Examination Constitutional: NAD on ventilator HEENT: PERRLA, sclera anicteric Neck: no JVD, supple Respiratory: no wheezing, no rales, no rhonchi coarse sound+ Cardiovascular: RRR, no rub SM+ Gastrointestinal: soft, no distention, positive bowel sounds peg+ Musculoskeletal: no edema, pulses present SCD+ unable to assess Lymphatic: no nodes Deviation from normal: unable to assess Skin: no rash, normal turgor Dx/Plan (1) Acute respiratory failure with hypoxemia Code(s): J96.01 - ACUTE RESPIRATORY FAILURE WITH HYPOXIA Status: Acute (2) Aspiration pneumonia Code(s): J69.0 - PNEUMONITIS DUE TO INHALATION OF FOOD AND VOMIT Status: Acute (3) Hypokalemia Code(s): E87.6 - HYPOKALEMIA Status: Acute (4) Hypomagnesemia Code(s): E83.42 - HYPOMAGNESEMIA Status: Acute (5) Lactic acidosis Code(s): E87.2 - ACIDOSIS Status: Acute (6) Mucus plugging of bronchi Code(s): J98.09 - OTHER DISEASES OF BRONCHUS, NOT ELSEWHERE CLASSIFIED Status : Acute (7) Anxiety and depression Code(s): F41.8 - OTHER SPECIFIED ANXIETY DISORDERS Status: Chronic (8) Dyslipidemia Code(s): E78.5 - HYPERLIPIDEMIA, UNSPECIFIED Status: Chronic (9) Hemiparesis and other late effects of cerebrovascular accident Code(s): I69.359 - HEMIPLGA FOLLOWING CEREBRAL INFARCTION AFFECTING UNSP SIDE; I69.398 - OTHER SEQUELAE OF CEREBRAL INFARCTION Status: Chronic (10) Hypertension Code(s): I10 - ESSENTIAL (PRIMARY) HYPERTENSION Status: Chronic (11) Seizure disorder as sequela of cerebrovascular accident Code(s): I69.398 - OTHER SEQUELAE OF CEREBRAL INFARCTION; G40.909 - EPILEPSY, UNSP, NOT INTRACTABLE, WITHOUT STATUS EPILEPTICUS Status: Chronic (12) Encephalopathy acute Code(s): G93.40 - ENCEPHALOPATHY, UNSPECIFIED Status: Acute (13) Hypophosphatemia Code(s): E83.39 - OTHER DISORDERS OF PHOSPHORUS METABOLISM Status: Acute - Plan cont current plan of care, continue antibiotics, respiratory therapy * replace phosphorus * vent as per pulmonary * continue vancomycin and zosyn * continue keppra * medication reviewed as below * symptomatic treatment * supportive care. Review of Systems - Review of Systems Other: unable to review due to intubated status - Medications/Allergies Allergies/Adverse Reactions: Allergies Allergy/AdvReac Type Severity Reaction Status Date / Time No Known Drug Allergies Allergy Verified 08/03/14 15:28 Medications: Current Medications Acetaminophen (Tylenol) 650 mg PER TUBE Q4H PRN PRN Reason: Headache/Fever/Mild Pain (1-3) Last Admin: 01/05/18 20:42 Dose: 650 mg Albuterol/Ipratropium (Duoneb) 3 ml NEB [id number] [facility] Last Admin: 01/07/18 06:46 Dose: 3 ml Artificial Tears (Tears Naturale) 2 drop EA EYE PRN PRN PRN Reason: Dry Eyes Bisacodyl (Dulcolax) 10 mg PO DAILYPRN PRN PRN Reason: Constipation Bisacodyl (Dulcolax) 10 mg [place] DAILYPRN PRN PRN Reason: Constipation Calcium Carbonate (Tums) 1,000 mg PER TUBE Q4H PRN PRN Reason: Heartburn or Indigestion Enoxaparin Sodium (Lovenox) 40 mg SC 0900 [facility] Last Admin: 01/07/18 08:37 Dose: 40 mg Famotidine (Pepcid) 20 mg SLOW IVP Q12HR [facility] [place] Last Admin: 01/07/18 08:37 Dose: 20 mg Guaifenesin (Robitussin Sf) 200 mg PER TUBE Q4H PRN PRN Reason: Cough Hydralazine HCl (Apresoline) 10 mg SLOW IVP Q4H PRN PRN Reason: SBP Greater Than 170 Piperacillin Sod/Tazobactam (Sod 3.375 gm/ Sodium Chloride) 100 mls @ 200 mls/ hr IVPB 0300,0900,1500,2100 [facility] [place] Last Admin: 01/07/18 08:38 Dose: 100 mls Fentanyl Citrate 2,000 mcg/ (Sodium Chloride) 100 mls @ 0 mls/hr IV INF [facility]; Protocol Stop: 02/04/18 08:40 Fentanyl Citrate (Fentanyl Bolus) 250 mls @ 0 mls/hr IVPB PRN PRN PRN Reason: Breakthrough pain/agitation Stop: 02/04/18 08:40 Levetiracetam 500 mg/ Device 100 mls @ 200 mls/hr IVPB BID [facility] [place] Last Admin: 01/07/18 08:38 Dose: 100 mls Sodium Chloride (Normal Saline 0.9%) 1,000 mls @ 0 mls/hr IV .Q0M [facility] [place] Last Admin: 01/06/18 13:38 Dose: 1,000 mls Vancomycin HCl 1.5 gm/ Sodium (Chloride) 300 mls @ 200 mls/hr IVPB .PENDING [facility] Sodium Phosphate 30 mmol/ (Sodium Chloride) 260 mls @ 43.333 mls/hr IVPB NOW [facility] Stop: 01/07/18 12:00 Last Admin: 01/07/18 08:12 Dose: 260 mls Labetalol HCl (Normodyne) 20 mg SLOW IVP Q4H PRN PRN Reason: SBP Greater Than 170 Loperamide HCl (Imodium) 2 mg PER TUBE PRN PRN PRN Reason: Diarrhea/Loose Stools Loratadine (Claritin) 10 mg PER TUBE DAILYPRN PRN PRN Reason: Sinus Symptoms Lorazepam (Ativan) 2 mg SLOW IVP Q2H PRN PRN Reason: .SEIZURE ACTIVITY Last Admin: 01/05/18 12:00 Dose: 2 mg Magnesium Hydroxide (Milk Of Magnesium) 30 ml PER TUBE Q8H PRN PRN Reason: Constipation Methylprednisolone Sodium Succinate (Solu-Medrol) 40 mg IVP DAILY [facility] [place] Last Admin: 01/07/18 08:37 Dose: 40 mg Mineral Oil/White Petrolatum (Eucerin Cream) 0 gm TOP BIDPRN PRN PRN Reason: Dry Skin Miscellaneous Medication (Pharmacy To Dose) 1 each IVPB PRN PRN PRN Reason: ASPIRATION PNA Miscellaneous Medication (Phos-Nak) 1 pkt PER TUBE TID [facility] [place] Stop: 01/07/18 21:01 Last Admin: 01/07/18 08:37 Dose: 1 pkt Discontinue Previous Narcotic Pain Medications And Benzodiazepines 1 each FS .ONE [facility] [place] Stop: 02/04/18 08:40 Ondansetron HCl (Zofran Odt) 4 mg SL Q6H PRN PRN Reason: Nausea/Vomiting Ondansetron HCl (Zofran) 4 mg IVP Q6H PRN PRN Reason: Nausea/Vomiting Propofol (Diprivan) 1,000 mg IV INF PRN; Protocol PRN Reason: TO ACHIEVE GOAL RASS Stop: 02/04/18 08:40 Last Admin: 01/05/18 20:27 Dose: 1,000 mg Propofol (Diprivan Bolus) 20 mg IV Q5MIN PRN PRN Reason: BREAKTHROUGH AGITATION Stop: 02/04/18 08:40 Saccharomyces Boulardii (Florastor) 250 mg PER TUBE DAILY [facility] [place] Last Admin: 01/07/18 08:37 Dose: 250 mg Senna/Docusate Sodium (Senokot S) 2 tab PER TUBE BID PRN PRN Reason: Constipation
[2018-01-07] MEDS ORDERED: Pregabalin 25 MG CAP PO SCH (12:30)
[2018-01-07] MEDS: cefTRIAXone\\ROCEPHIN 2 GM in Sodium Chloride 0.9% 100 ML IVPB SCH (12:43)
[2018-01-07] MEDS: Dextrose 5% in Water 1,000 ML IV SCH (12:44)
--- NOTE | 2018-01-07 13:26 | PRG ---
DATE OF SERVICE: 01/07/2018 SERVICE: Pulmonary Medicine. INTERVAL HISTORY: The patient is doing outstanding from a respiratory standpoint. She has actually been weaned down to 23% FiO2. She is breathing comfortably. She is on pressure support ventilation at 5/5. She is not able to provide elements of the history because she is intubated. That being said, she is a little bit more cantankerous with the right side of her body and actually follows some very simple commands. Ultimately, it is very clear to me that at this point, her mentation is improving. Otherwise, there has been no interval change to her condition. PHYSICAL EXAMINATION: VITAL SIGNS: Afebrile with a T-max of 101.1, pulse 106, blood pressure 176/88, respirations 18, saturation 96% on 23% FiO2 and a PEEP of 5. GENERAL: The patient is awake and alert, in no apparent distress. LUNGS: Decent air entry bilaterally. Dependent crackles are minimal. HEART: Normal rate, regular. ABDOMEN: Soft, nontender, nondistended. Bowel sounds are positive. MUSCULOSKELETAL: No cyanosis or clubbing. Diffuse 1 to 2+ pitting is present throughout. NEUROLOGIC: Grossly nonfocal. LABORATORY DATA: WBC 11.6, hemoglobin 12.4, platelets 147,000. Band counts have improved to 15%. Chloride 116, sodium 145. Basic metabolic profile and liver function studies are otherwise unremarkable. Phosphorus 1.0, lactate 1.8 and resolved. Magnesium 2.3. Vancomycin 22. Respiratory culture is growing Klebsiella pneumoniae, which is a pansensitive organism. Blood cultures x2 are negative. ASSESSMENT: 1. Acute hypoxic respiratory failure, resolving. 2. Metabolic encephalopathy. 3. Community-acquired pneumonia secondary to Klebsiella. 4. 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 5. Hypophosphatemia. 6. Hypokalemia, resolved. 7. Hypomagnesemia, resolved. DISCUSSION AND PLAN: We will put the patient on spontaneous breathing trial. If she meets criteria, extubation will be considered. She is significantly volume up for the hospital stay. IV fluids will be interrupted. We will introduce some free water and start to diurese her through time. Pulmonary Critical Care will continue to follow and she is certainly going to remain in the ICU for 24 hours. Critical care time: 30 minutes. MTDD
[2018-01-07] MEDS: Metoprolol Tartrate 50 MG TAB PO SCH (20:52)
[2018-01-07] MEDS: Amitriptyline HCl 25 MG TAB PO SCH (20:52)
[2018-01-07] MEDS ORDERED: Famotidine 20 MG TAB PER TUBE SCH (21:00)
[2018-01-07] MEDS: Labetalol HCl 100 MG/20 ML VIAL SLOW IVP PRN (22:13)
[2018-01-08 06:25] LABS: Hemoglobin 11.8 g/dL (12.0-16.0); Mean Corpuscular HGB CONC 31.1 g/dL (32.0-36.0); Mean Corpuscular Hemoglobin 28.7 pg (27.0-31.0); Mean Corpuscular Volume 92.3 fL (78.0-98.0); Mean Platelet Volume 9.4 fL (7.4-10.4); Platelet Count 135 thou/uL (130-400); RBC Distribution Width 12.3 % (11.5-14.5); White Blood Cell (WBC) Count 11.4 thou/uL (4.8-10.8)
[2018-01-08] MEDS: Dextrose 5% in Water 1,000 ML IV SCH (06:39)
[2018-01-08 06:47] LABS: Band 17 % (5-11); Lymphocytes 13 % (21-51); MDiff Complete? YES; Monocytes 7 % (0-10); Neutrophil 63 % (42-75)
[2018-01-08 06:51] LABS: ALT (SGPT) 16 U/L (8-55); AST (SGOT) 32 U/L (5-34); Albumin 2.9 g/dL (3.4-4.8); Alkaline Phosphatase 34 U/L (40-150); Anion Gap 11 mmol/L (10-20); BUN (Urea Nitrogen) 17 mg/dL (9.8-20.1); Bilirubin, Total 0.5 mg/dL (0.2-1.2); Calc. Creatinine Clearance 67 mL/min (70-130); Calcium 9.1 mg/dL (7.8-10.44); Carbon Dioxide 23 mmol/L (23-31); Chloride 113 mmol/L (98-107); Estimated GFR-MDRD 70; Globulin 3.8 g/dL (2.4-3.5); Glucose 102 mg/dL (83-110); Phosphorus 2.5 mg/dL (2.3-4.7); Potassium 3.9 mmol/L (3.5-5.1); Protein, Total 6.7 g/dL (6.0-8.3); Sodium 143 mmol/L (136-145)
[2018-01-08] MEDS: Pregabalin 25 MG CAP PO SCH (08:41)
[2018-01-08] MEDS: Metoprolol Tartrate 50 MG TAB PO SCH ×2 (08:41→20:49)
[2018-01-08] MEDS: Saccharomyces boulardii 250 MG CAP PER TUBE SCH (08:41)
[2018-01-08] MEDS: Enoxaparin Sodium 40 MG/0.4 ML SYRINGE SC SCH (08:42)
[2018-01-08] MEDS: Escitalopram Oxalate 10 mg Tablet PO SCH (08:42)
[2018-01-08] MEDS: Losartan 25 MG TAB PO SCH (08:58)
--- NOTE | 2018-01-08 10:13 | PDOC.PN ---
- Subjective Encounter Start Date: 01/08/18 Encounter Start Time: 09:40 Patient seen and examined. No overnight events pt is extubated and doing well - Objective Resuscitation Status: Resuscitation Status FULL:Full Resuscitation MAR Reviewed: Yes Vital Signs & Weight: Vital Signs (12 hours) Temp Pulse BP Pulse Ox 01/08/18 08:00 99.0 F 01/08/18 07:36 95 01/07/18 22:13 80 178/95 H Weight Admit Weight 194 lb Weight 198 lb 6.656 oz Most Recent Monitor Data Heart Rate from ECG 84 NIBP 150/84 NIBP BP-Mean 106 Respiration from ECG 19 SpO2 94 I&O: 01/07/18 01/08/18 01/09/18 06:59 06:59 06:59 Intake Total 3096 1880 Output Total 825 1109 150 Balance 2271 771 -150 Result Diagrams: 01/08/18 05:26 01/08/18 05:26 EKG Reviewed by me: Yes (nsr) Phys Exam - Physical Examination Constitutional: NAD HEENT: PERRLA, sclera anicteric Neck: no JVD, supple Respiratory: no wheezing, no rales, no rhonchi Cardiovascular: RRR, no significant murmur, no rub Gastrointestinal: soft, no distention, positive bowel sounds PEG+ Musculoskeletal: no edema, pulses present residual weakness, aphasia and dysphagia Lymphatic: no nodes Psychiatric: normal affect Skin: no rash, normal turgor Dx/Plan (1) Acute respiratory failure with hypoxemia Code(s): J96.01 - ACUTE RESPIRATORY FAILURE WITH HYPOXIA Status: Acute (2) Aspiration pneumonia Code(s): J69.0 - PNEUMONITIS DUE TO INHALATION OF FOOD AND VOMIT Status: Acute Comment: due to klebsiella (3) Hypokalemia Code(s): E87.6 - HYPOKALEMIA Status: Acute (4) Hypomagnesemia Code(s): E83.42 - HYPOMAGNESEMIA Status: Acute (5) Lactic acidosis Code(s): E87.2 - ACIDOSIS Status: Acute (6) Mucus plugging of bronchi Code(s): J98.09 - OTHER DISEASES OF BRONCHUS, NOT ELSEWHERE CLASSIFIED Status : Acute (7) Anxiety and depression Code(s): F41.8 - OTHER SPECIFIED ANXIETY DISORDERS Status: Chronic (8) Dyslipidemia Code(s): E78.5 - HYPERLIPIDEMIA, UNSPECIFIED Status: Chronic (9) Hemiparesis and other late effects of cerebrovascular accident Code(s): I69.359 - HEMIPLGA FOLLOWING CEREBRAL INFARCTION AFFECTING UNSP SIDE; I69.398 - OTHER SEQUELAE OF CEREBRAL INFARCTION Status: Chronic (10) Hypertension Code(s): I10 - ESSENTIAL (PRIMARY) HYPERTENSION Status: Chronic (11) Seizure disorder as sequela of cerebrovascular accident Code(s): I69.398 - OTHER SEQUELAE OF CEREBRAL INFARCTION; G40.909 - EPILEPSY, UNSP, NOT INTRACTABLE, WITHOUT STATUS EPILEPTICUS Status: Chronic - Plan cont current plan of care, continue antibiotics * antibiotics changed to rocephin based on culture result * transfer to medical * aspiration precaution * medication reviewed as below * symptomatic treatment * supportive care. Review of Systems - Review of Systems Other: unable to review due to her cognitive status, aphasia - Medications/Allergies Allergies/Adverse Reactions: Allergies Allergy/AdvReac Type Severity Reaction Status Date / Time No Known Drug Allergies Allergy Verified 08/03/14 15:28 Medications: Current Medications Acetaminophen (Tylenol) 650 mg PER TUBE Q4H PRN PRN Reason: Headache/Fever/Mild Pain (1-3) Last Admin: 01/05/18 20:42 Dose: 650 mg Albuterol/Ipratropium (Duoneb) 3 ml NEB [id number] PRN PRN Reason: SOB &/or Wheezing Amitriptyline HCl (Elavil) 25 mg PO HS [facility] Last Admin: 01/07/18 20:52 Dose: 25 mg Artificial Tears (Tears Naturale) 2 drop EA EYE PRN PRN PRN Reason: Dry Eyes Bisacodyl (Dulcolax) 10 mg PO DAILYPRN PRN PRN Reason: Constipation Bisacodyl (Dulcolax) [address] DAILYPRN PRN PRN Reason: Constipation Calcium Carbonate (Tums) 1,000 mg PER TUBE Q4H PRN PRN Reason: Heartburn or Indigestion Enoxaparin Sodium (Lovenox) 40 mg SC 0900 [facility] Last Admin: 01/08/18 08:42 Dose: 40 mg Escitalopram Oxalate (Lexapro) 10 mg PO DAILY [facility] Last Admin: 01/08/18 08:42 Dose: 10 mg Guaifenesin (Robitussin Sf) 200 mg PER TUBE Q4H PRN PRN Reason: Cough Hydralazine HCl (Apresoline) 10 mg SLOW IVP Q4H PRN PRN Reason: SBP Greater Than 170 Fentanyl Citrate (Fentanyl Bolus) 250 mls @ 0 mls/hr IVPB PRN PRN PRN Reason: Breakthrough pain/agitation Stop: 02/04/18 08:40 Levetiracetam 500 mg/ Device 100 mls @ 200 mls/hr IVPB BID [facility] Last Admin: 01/08/18 08:40 Dose: 100 mls Dextrose/Water (D5w) 1,000 mls @ 50 mls/hr IV .Q20H [facility] Last Admin: 01/08/18 06:39 Dose: 1,000 mls Ceftriaxone Sodium 2 gm/ (Sodium Chloride) 100 mls @ 200 mls/hr IVPB Q24HR [facility] Stop: 01/11/18 13:29 Last Admin: 01/07/18 12:43 Dose: 100 mls Labetalol HCl (Normodyne) 20 mg SLOW IVP Q4H PRN PRN Reason: SBP Greater Than 170 Last Admin: 01/07/18 22:13 Dose: 20 mg Loperamide HCl (Imodium) 2 mg PER TUBE PRN PRN PRN Reason: Diarrhea/Loose Stools Loratadine (Claritin) 10 mg PER TUBE DAILYPRN PRN PRN Reason: Sinus Symptoms Losartan Potassium (Cozaar) 100 mg PO DAILY [facility] Last Admin: 01/08/18 08:58 Dose: 100 mg Magnesium Hydroxide (Milk Of Magnesium) 30 ml PER TUBE Q8H PRN PRN Reason: Constipation Methylprednisolone Sodium Succinate (Solu-Medrol) 40 mg IVP DAILY [facility] Last Admin: 01/08/18 08:41 Dose: 40 mg Metoprolol Tartrate (Lopressor) 50 mg PO BID [facility] Last Admin: 01/08/18 08:41 Dose: 50 mg Mineral Oil/White Petrolatum (Eucerin Cream) 0 gm TOP BIDPRN PRN PRN Reason: Dry Skin Discontinue Previous Narcotic Pain Medications And Benzodiazepines 1 each FS .ONE [facility] Stop: 02/04/18 08:40 Ondansetron HCl (Zofran Odt) 4 mg SL Q6H PRN PRN Reason: Nausea/Vomiting Ondansetron HCl (Zofran) 4 mg IVP Q6H PRN PRN Reason: Nausea/Vomiting Pregabalin (Lyrica) 25 mg PO DAILY [facility] Last Admin: 01/08/18 08:41 Dose: 25 mg Propofol (Diprivan Bolus) 20 mg IV Q5MIN PRN PRN Reason: BREAKTHROUGH AGITATION Stop: 02/04/18 08:40 Saccharomyces Boulardii (Florastor) 250 mg PER TUBE DAILY [facility] Last Admin: 01/08/18 08:41 Dose: 250 mg Senna/Docusate Sodium (Senokot S) 2 tab PER TUBE BID PRN PRN Reason: Constipation
[2018-01-08] MEDS: Labetalol HCl 100 MG/20 ML VIAL SLOW IVP PRN (11:36)
--- NOTE | 2018-01-08 13:27 | PRG ---
DATE OF SERVICE: 01/08/2018 SERVICE: Pulmonary Medicine. INTERVAL HISTORY: The patient is doing great from a respiratory standpoint. She is on room air. She extubated very comfortably yesterday. She is a touch cantankerous. She has been swinging at people with her good arm and trying to bite. Thankfully, she is edentulous. Otherwise, there has been no interval change to her condition. PHYSICAL EXAMINATION: VITAL SIGNS: Afebrile, pulse 74, blood pressure 147/103, respirations 19, saturation 92% on room air. GENERAL: The patient is awake and alert, in no apparent distress. LUNGS: Decent air entry. Dependent crackles are present. No prolonged expiratory phase or wheezing is appreciated. HEART: Normal rate, regular. ABDOMEN: Soft, nontender, nondistended. Bowel sounds are positive. MUSCULOSKELETAL: No cyanosis or clubbing. There is 1 to 2+ pitting throughout. GENITOURINARY: [place] catheter in place. NEUROLOGIC: Grossly nonfocal. LABORATORY DATA: WBC 11.4, hemoglobin 10.4, platelets 135,000. Band count is down to 17%. Basic metabolic profile and liver function studies are essentially unremarkable otherwise. Phosphorus 2.5 and improved. Blood cultures x2 remain negative. Klebsiella pneumoniae is growing in the respiratory culture. ASSESSMENT: 1. Acute hypoxic respiratory failure, resolved. 2. Metabolic encephalopathy. 3. Community-acquired pneumonia secondary to Klebsiella. 4. History of stroke with residual left-sided hemiparesis and dysphagia. 5. Hypophosphatemia, resolved. DISCUSSION AND PLAN: The patient can be transitioned out of the ICU to the medical unit today. Antibiotics can be interrupted after a total duration of 5 days. At this point, she has no further requirements for inpatient Pulmonary or Critical Care opinion and I will sign off. Ultimately in 4 weeks, she will need a repeat chest x-ray to make certain the perihilar opacity goes away. If it fails to, a CT of the chest will need to be considered. REFUGIO
[2018-01-08] MEDS ORDERED: Furosemide 40 MG/4 ML VIAL SLOW IVP SCH (13:30)
[2018-01-08] MEDS: cefTRIAXone\\ROCEPHIN 2 GM in Sodium Chloride 0.9% 100 ML IVPB SCH (16:09)
[2018-01-08] MEDS: Amitriptyline HCl 25 MG TAB PO SCH (20:50)
[2018-01-09] MEDS: Dextrose 5% in Water 1,000 ML IV SCH (04:30)
[2018-01-09] MEDS: Furosemide 40 MG/4 ML VIAL SLOW IVP SCH (05:39)
[2018-01-09 06:06] LABS: Anion Gap 10 mmol/L (10-20); BUN (Urea Nitrogen) 17 mg/dL (9.8-20.1); Calc. Creatinine Clearance 75 mL/min (70-130); Calcium 9.3 mg/dL (7.8-10.44); Carbon Dioxide 25 mmol/L (23-31); Chloride 109 mmol/L (98-107); Estimated GFR-MDRD 79; Glucose 100 mg/dL (83-110); Potassium 3.4 mmol/L (3.5-5.1); Sodium 141 mmol/L (136-145)
[2018-01-09 06:17] LABS: Band 7 % (5-11); Hemoglobin 12.3 g/dL (12.0-16.0); Lymphocytes 22 % (21-51); MDiff Complete? YES; Mean Corpuscular HGB CONC 30.7 g/dL (32.0-36.0); Mean Corpuscular Volume 91.2 fL (78.0-98.0); Mean Platelet Volume 9.4 fL (7.4-10.4); Monocytes 10 % (0-10); Neutrophil 61 % (42-75); Platelet Count 157 thou/uL (130-400); RBC Distribution Width 12.1 % (11.5-14.5); White Blood Cell (WBC) Count 9.5 thou/uL (4.8-10.8)
[2018-01-09] MEDS: Metoprolol Tartrate 50 MG TAB PO SCH ×2 (09:19→21:13)
[2018-01-09] MEDS: Pregabalin 25 MG CAP PO SCH (09:19)
[2018-01-09] MEDS: Saccharomyces boulardii 250 MG CAP PER TUBE SCH (09:19)
[2018-01-09] MEDS: Enoxaparin Sodium 40 MG/0.4 ML SYRINGE SC SCH (09:20)
[2018-01-09] MEDS: Escitalopram Oxalate 10 mg Tablet PO SCH (09:20)
[2018-01-09] MEDS: Losartan 25 MG TAB PO SCH (09:26)
--- NOTE | 2018-01-09 10:05 | PDOC.PN ---
- Subjective Encounter Start Date: 01/09/18 Encounter Start Time: 07:35 Patient seen and examined. No overnight events - Objective Resuscitation Status: Resuscitation Status FULL:Full Resuscitation MAR Reviewed: Yes Vital Signs & Weight: Vital Signs (12 hours) Temp Pulse Resp BP Pulse Ox 01/09/18 08:00 97.4 F L 71 20 152/89 H 92 L 01/09/18 04:00 98.1 F 83 18 153/88 H 94 L 01/09/18 00:00 97.9 F 76 18 152/89 H 94 L Weight Admit Weight 194 lb Weight 196 lb 4.8 oz Most Recent Monitor Data Heart Rate from ECG 80 NIBP 146/86 NIBP BP-Mean 106 Respiration from ECG 22 SpO2 90 I&O: 01/08/18 01/09/18 01/10/18 06:59 06:59 06:59 Intake Total 1880 1905 Output Total 1109 3320 Balance 771 -1415 Result Diagrams: 01/09/18 04:55 01/09/18 04:55 Phys Exam - Physical Examination Constitutional: NAD HEENT: PERRLA, moist MMs, sclera anicteric Neck: no JVD, supple Respiratory: no wheezing, no rales, no rhonchi Cardiovascular: RRR, no significant murmur, no rub Gastrointestinal: soft, non-tender, no distention, positive bowel sounds peg + Musculoskeletal: no edema, pulses present Neurological: normal sensation Lymphatic: no nodes Skin: no rash, normal turgor Dx/Plan (1) Acute respiratory failure with hypoxemia Code(s): J96.01 - ACUTE RESPIRATORY FAILURE WITH HYPOXIA Status: Resolved (2) Aspiration pneumonia Code(s): J69.0 - PNEUMONITIS DUE TO INHALATION OF FOOD AND VOMIT Status: Acute Comment: due to klebsiella (3) Hypokalemia Code(s): E87.6 - HYPOKALEMIA Status: Resolved (4) Hypomagnesemia Code(s): E83.42 - HYPOMAGNESEMIA Status: Resolved (5) Lactic acidosis Code(s): E87.2 - ACIDOSIS Status: Resolved (6) Mucus plugging of bronchi Code(s): J98.09 - OTHER DISEASES OF BRONCHUS, NOT ELSEWHERE CLASSIFIED Status : Resolved (7) Anxiety and depression Code(s): F41.8 - OTHER SPECIFIED ANXIETY DISORDERS Status: Chronic (8) Dyslipidemia Code(s): E78.5 - HYPERLIPIDEMIA, UNSPECIFIED Status: Chronic (9) Hemiparesis and other late effects of cerebrovascular accident Code(s): I69.359 - HEMIPLGA FOLLOWING CEREBRAL INFARCTION AFFECTING UNSP SIDE; I69.398 - OTHER SEQUELAE OF CEREBRAL INFARCTION Status: Chronic (10) Hypertension Code(s): I10 - ESSENTIAL (PRIMARY) HYPERTENSION Status: Chronic (11) Seizure disorder as sequela of cerebrovascular accident Code(s): I69.398 - OTHER SEQUELAE OF CEREBRAL INFARCTION; G40.909 - EPILEPSY, UNSP, NOT INTRACTABLE, WITHOUT STATUS EPILEPTICUS Status: Chronic - Plan cont current plan of care, plan discussed w/ family, continue antibiotics * spoke with family and prefer her to stay one more day * medication reviewed as below * symptomatic treatment * continue rocephin * seems like she is baseline * possible discharge tomorrow. Review of Systems - Review of Systems Other: unable to review as pt is nonverbal - Medications/Allergies Allergies/Adverse Reactions: Allergies Allergy/AdvReac Type Severity Reaction Status Date / Time No Known Drug Allergies Allergy Verified 08/03/14 15:28 Medications: Current Medications Acetaminophen (Tylenol) 650 mg PER TUBE Q4H PRN PRN Reason: Headache/Fever/Mild Pain (1-3) Last Admin: 01/05/18 20:42 Dose: 650 mg Albuterol/Ipratropium (Duoneb) 3 ml NEB [id number] PRN PRN Reason: SOB &/or Wheezing Amitriptyline HCl (Elavil) 25 mg PO HS [facility] Last Admin: 01/08/18 20:50 Dose: 25 mg Artificial Tears (Tears Naturale) 2 drop EA EYE PRN PRN PRN Reason: Dry Eyes Bisacodyl (Dulcolax) 10 mg PO DAILYPRN PRN PRN Reason: Constipation Bisacodyl (Dulcolax) 10 mg [place] DAILYPRN PRN PRN Reason: Constipation Calcium Carbonate (Tums) 1,000 mg PER TUBE Q4H PRN PRN Reason: Heartburn or Indigestion Enoxaparin Sodium (Lovenox) 40 mg SC 0900 [facility] Last Admin: 01/09/18 09:20 Dose: 40 mg Escitalopram Oxalate (Lexapro) 10 mg PO DAILY [facility] Last Admin: 01/09/18 09:20 Dose: 10 mg Furosemide (Lasix) 40 mg SLOW IVP 0600 [facility] Stop: 01/10/18 06:01 Last Admin: 01/09/18 05:39 Dose: 40 mg Guaifenesin (Robitussin Sf) 200 mg PER TUBE Q4H PRN PRN Reason: Cough Hydralazine HCl (Apresoline) 10 mg SLOW IVP Q4H PRN PRN Reason: SBP Greater Than 170 Levetiracetam 500 mg/ Device 100 mls @ 200 mls/hr IVPB BID [facility] Last Admin: 01/09/18 09:18 Dose: 100 mls Dextrose/Water (D5w) 1,000 mls @ 50 mls/hr IV .Q20H [facility] Last Admin: 01/09/18 04:30 Dose: 1,000 mls Ceftriaxone Sodium 2 gm/ (Sodium Chloride) 100 mls @ 200 mls/hr IVPB Q24HR [facility] Stop: 01/11/18 13:29 Last Admin: 01/08/18 16:09 Dose: 100 mls Labetalol HCl (Normodyne) 20 mg SLOW IVP Q4H PRN PRN Reason: SBP Greater Than 170 Last Admin: 01/08/18 11:36 Dose: 20 mg Loperamide HCl (Imodium) 2 mg PER TUBE PRN PRN PRN Reason: Diarrhea/Loose Stools Loratadine (Claritin) 10 mg PER TUBE DAILYPRN PRN PRN Reason: Sinus Symptoms Losartan Potassium (Cozaar) 100 mg PO DAILY [facility] Last Admin: 01/09/18 09:26 Dose: 100 mg Magnesium Hydroxide (Milk Of Magnesium) 30 ml PER TUBE Q8H PRN PRN Reason: Constipation Metoprolol Tartrate (Lopressor) 50 mg PO BID [facility] Last Admin: 01/09/18 09:19 Dose: 50 mg Mineral Oil/White Petrolatum (Eucerin Cream) 0 gm TOP BIDPRN PRN PRN Reason: Dry Skin Discontinue Previous Narcotic Pain Medications And Benzodiazepines 1 each FS .ONE [facility] Stop: 02/04/18 08:40 Ondansetron HCl (Zofran Odt) 4 mg SL Q6H PRN PRN Reason: Nausea/Vomiting Ondansetron HCl (Zofran) 4 mg IVP Q6H PRN PRN Reason: Nausea/Vomiting Pregabalin (Lyrica) 25 mg PO DAILY [facility] Last Admin: 01/09/18 09:19 Dose: 25 mg Saccharomyces Boulardii (Florastor) 250 mg PER TUBE DAILY [facility] Last Admin: 01/09/18 09:19 Dose: 250 mg Senna/Docusate Sodium (Senokot S) 2 tab PER TUBE BID PRN PRN Reason: Constipation
[2018-01-09 11:37] VITALS: BMI 32.6
[2018-01-09] MEDS: cefTRIAXone\\ROCEPHIN 2 GM in Sodium Chloride 0.9% 100 ML IVPB SCH (14:09)
[2018-01-09] MEDS: Amitriptyline HCl 25 MG TAB PO SCH (21:13)
[2018-01-10 04:30] LABS: Anion Gap 11 mmol/L (10-20); BUN (Urea Nitrogen) 16 mg/dL (9.8-20.1); Calc. Creatinine Clearance 75 mL/min (70-130); Calcium 9.6 mg/dL (7.8-10.44); Carbon Dioxide 27 mmol/L (23-31); Chloride 108 mmol/L (98-107); Estimated GFR-MDRD 79; Glucose 94 mg/dL (83-110); Potassium 3.3 mmol/L (3.5-5.1); Sodium 143 mmol/L (136-145)
[2018-01-10 04:51] LABS: Band 1 % (5-11); Hemoglobin 13.3 g/dL (12.0-16.0); Lymphocytes 27 % (21-51); MDiff Complete? YES; Mean Corpuscular HGB CONC 31.9 g/dL (32.0-36.0); Mean Corpuscular Hemoglobin 29.3 pg (27.0-31.0); Mean Corpuscular Volume 91.8 fL (78.0-98.0); Mean Platelet Volume 8.7 fL (7.4-10.4); Monocytes 5 % (0-10); Neutrophil 67 % (42-75); PLT Morphology Comment Appears Adequate; Platelet Count 167 thou/uL (130-400); RBC Distribution Width 11.9 % (11.5-14.5); RBC Morphology Normal; Red Blood Cell (RBC) Count 4.54 mill/uL (4.20-5.40); White Blood Cell (WBC) Count 8.5 thou/uL (4.8-10.8)
[2018-01-10] MEDS: Furosemide 40 MG/4 ML VIAL SLOW IVP SCH (05:14)
[2018-01-10 08:19] VITALS: BP 133/78; TEMP 98.7
[2018-01-10] MEDS: Enoxaparin Sodium 40 MG/0.4 ML SYRINGE SC SCH (08:41)
[2018-01-10] MEDS: Escitalopram Oxalate 10 mg Tablet PO SCH (08:42)
[2018-01-10] MEDS: Metoprolol Tartrate 50 MG TAB PO SCH (08:42)
[2018-01-10] MEDS: Saccharomyces boulardii 250 MG CAP PER TUBE SCH (08:42)
[2018-01-10] MEDS: Losartan 25 MG TAB PO SCH (08:42)
[2018-01-10] MEDS ORDERED: levETIRAcetam 500 mg/5 ml Oral Solution PER TUBE SCH (09:00)
--- NOTE | 2018-01-10 09:49 | PDOC.PN ---
- Subjective Encounter Start Date: 01/10/18 Encounter Start Time: 09:00 Patient seen and examined. No new complaints. No overnight events - Objective Resuscitation Status: Resuscitation Status FULL:Full Resuscitation MAR Reviewed: Yes Vital Signs & Weight: Vital Signs (12 hours) Temp Pulse Resp BP Pulse Ox 01/10/18 08:00 98.7 F 91 16 133/78 90 L 01/10/18 04:30 97.6 F 79 16 174/75 H 94 L Weight Admit Weight 194 lb Weight 194 lb 4.8 oz Most Recent Monitor Data Heart Rate from ECG 80 NIBP 146/86 NIBP BP-Mean 106 Respiration from ECG 22 SpO2 90 I&O: 01/09/18 01/10/18 01/11/18 06:59 06:59 06:59 Intake Total 1905 430 Output Total 3320 3850 Balance -1415 -3420 Result Diagrams: 01/10/18 03:54 01/10/18 03:54 Phys Exam - Physical Examination Constitutional: NAD HEENT: PERRLA, moist MMs, sclera anicteric Neck: no JVD, supple Respiratory: no wheezing, no rales, no rhonchi Cardiovascular: RRR, no significant murmur, no rub Gastrointestinal: soft, no distention, positive bowel sounds peg in place Musculoskeletal: no edema, pulses present Lymphatic: no nodes Psychiatric: normal affect Skin: no rash, normal turgor Dx/Plan (1) Acute respiratory failure with hypoxemia Code(s): J96.01 - ACUTE RESPIRATORY FAILURE WITH HYPOXIA Status: Resolved (2) Aspiration pneumonia Code(s): J69.0 - PNEUMONITIS DUE TO INHALATION OF FOOD AND VOMIT Status: Acute Comment: due to klebsiella (3) Hypokalemia Code(s): E87.6 - HYPOKALEMIA Status: Resolved (4) Hypomagnesemia Code(s): E83.42 - HYPOMAGNESEMIA Status: Resolved (5) Lactic acidosis Code(s): E87.2 - ACIDOSIS Status: Resolved (6) Mucus plugging of bronchi Code(s): J98.09 - OTHER DISEASES OF BRONCHUS, NOT ELSEWHERE CLASSIFIED Status : Resolved (7) Anxiety and depression Code(s): F41.8 - OTHER SPECIFIED ANXIETY DISORDERS Status: Chronic (8) Dyslipidemia Code(s): E78.5 - HYPERLIPIDEMIA, UNSPECIFIED Status: Chronic (9) Hemiparesis and other late effects of cerebrovascular accident Code(s): I69.359 - HEMIPLGA FOLLOWING CEREBRAL INFARCTION AFFECTING UNSP SIDE; I69.398 - OTHER SEQUELAE OF CEREBRAL INFARCTION Status: Chronic (10) Hypertension Code(s): I10 - ESSENTIAL (PRIMARY) HYPERTENSION Status: Chronic (11) Seizure disorder as sequela of cerebrovascular accident Code(s): I69.398 - OTHER SEQUELAE OF CEREBRAL INFARCTION; G40.909 - EPILEPSY, UNSP, NOT INTRACTABLE, WITHOUT STATUS EPILEPTICUS Status: Chronic - Plan cont current plan of care, continue antibiotics * medication reviewed as below * symptomatic treatment * will plan for discharge today. Review of Systems - Review of Systems Other: not reliable due to aphasia - Medications/Allergies Allergies/Adverse Reactions: Allergies Allergy/AdvReac Type Severity Reaction Status Date / Time No Known Drug Allergies Allergy Verified 08/03/14 15:28 Medications: Current Medications Acetaminophen (Tylenol) 650 mg PER TUBE Q4H PRN PRN Reason: Headache/Fever/Mild Pain (1-3) Last Admin: 01/05/18 20:42 Dose: 650 mg Albuterol/Ipratropium (Duoneb) 3 ml NEB [id number] PRN PRN Reason: SOB &/or Wheezing Amitriptyline HCl (Elavil) 25 mg PO HS [facility] Last Admin: 01/09/18 21:13 Dose: 25 mg Artificial Tears (Tears Naturale) 2 drop EA EYE PRN PRN PRN Reason: Dry Eyes Bisacodyl (Dulcolax) 10 mg PO DAILYPRN PRN PRN Reason: Constipation Bisacodyl (Dulcolax) 10 mg [place] DAILYPRN PRN PRN Reason: Constipation Calcium Carbonate (Tums) 1,000 mg PER TUBE Q4H PRN PRN Reason: Heartburn or Indigestion Enoxaparin Sodium (Lovenox) 40 mg SC 0900 [facility] Last Admin: 01/10/18 08:41 Dose: 40 mg Escitalopram Oxalate (Lexapro) 10 mg PO DAILY [facility] Last Admin: 01/10/18 08:42 Dose: 10 mg Guaifenesin (Robitussin Sf) 200 mg PER TUBE Q4H PRN PRN Reason: Cough Hydralazine HCl (Apresoline) 10 mg SLOW IVP Q4H PRN PRN Reason: SBP Greater Than 170 Ceftriaxone Sodium 2 gm/ (Sodium Chloride) 100 mls @ 200 mls/hr IVPB Q24HR [facility] Stop: 01/11/18 13:29 Last Admin: 01/09/18 14:09 Dose: 100 mls Labetalol HCl (Normodyne) 20 mg SLOW IVP Q4H PRN PRN Reason: SBP Greater Than 170 Last Admin: 01/08/18 11:36 Dose: 20 mg Levetiracetam (Keppra Oral Solution) 500 mg PER TUBE BID [facility] Loperamide HCl (Imodium) 2 mg PER TUBE PRN PRN PRN Reason: Diarrhea/Loose Stools Loratadine (Claritin) 10 mg PER TUBE DAILYPRN PRN PRN Reason: Sinus Symptoms Losartan Potassium (Cozaar) 100 mg PO DAILY [facility] Last Admin: 01/10/18 08:42 Dose: 100 mg Magnesium Hydroxide (Milk Of Magnesium) 30 ml PER TUBE Q8H PRN PRN Reason: Constipation Metoprolol Tartrate (Lopressor) 50 mg PO BID [facility] Last Admin: 01/10/18 08:42 Dose: 50 mg Mineral Oil/White Petrolatum (Eucerin Cream) 0 gm TOP BIDPRN PRN PRN Reason: Dry Skin Discontinue Previous Narcotic Pain Medications And Benzodiazepines 1 each FS .ONE [facility] Stop: 02/04/18 08:40 Ondansetron HCl (Zofran Odt) 4 mg SL Q6H PRN PRN Reason: Nausea/Vomiting Ondansetron HCl (Zofran) 4 mg IVP Q6H PRN PRN Reason: Nausea/Vomiting Pregabalin (Lyrica) 25 mg PO DAILY [facility] Last Admin: 01/09/18 09:19 Dose: 25 mg Saccharomyces Boulardii (Florastor) 250 mg PER TUBE DAILY [facility] Last Admin: 01/10/18 08:42 Dose: 250 mg Senna/Docusate Sodium (Senokot S) 2 tab PER TUBE BID PRN PRN Reason: Constipation
[2018-01-10] MEDS: Pregabalin 25 MG CAP PO SCH (10:40)
--- NOTE | 2018-01-10 10:56 | DIS ---
DATE OF ADMISSION: 01/05/2018 DATE OF DISCHARGE: 01/10/2018 PRIMARY CARE PHYSICIAN: Tex Campos M.D. DISCHARGE DISPOSITION: Home. PRIMARY DISCHARGE DIAGNOSES: 1. Aspiration pneumonia with Klebsiella bacteria. 2. Acute encephalopathy. 3. Acute respiratory failure with hypoxia. 4. Abnormal electrolytes, corrected. 5. Lactic acidosis. 6. Sepsis with acute organ dysfunction. 7. Mucous plugging of bronchi. SECONDARY DISCHARGE DIAGNOSES: Hypertension, dyslipidemia, history of cerebrovascular accident with residual hemiparesis and dysphagia, aphasia, post cerebrovascular accident seizure disorder. PRIMARY PROCEDURE/OPERATION: Endotracheal intubation and mechanical ventilator support. RADIOLOGICAL INVESTIGATION: Chest x-ray. SIGNIFICANT LABORATORIES: WBC 8.5, hemoglobin 13.3, platelet 167,000. Sodium 143, potassium 3.3, BU N 16, creatinine 0.84, calcium 9.6. Respiratory culture grew Klebsiella. Blood culture negative. DISCHARGE MEDICATIONS: Omnicef 250 mg per tube twice daily for 5 days, Florastor 250 mg per tube antonia ly for 5 days, Tylenol Elixir 500 mg per tube b.i.d., aspirin 81 mg per tube daily, Robitussin 5 mL p er tube b.i.d., hydrochlorothiazide 25 mg per tube daily, Keppra 500 mg per tube b.i.d., losartan 100 mg per tube daily, Lyrica 25 mg per tube daily, amitriptyline 25 mg per tube daily, Lexapro 10 mg pe r tube daily, Lopressor 50 mg per tube b.i.d., MiraLax 17 grams per tube daily, potassium chloride 20 mEq per tube daily, Zocor 40 mg per tube daily. CONTRAINDICATIONS: None. CODE STATUS: Full code. INPATIENT CONSULTANTS: Dr. Millan was following while in hospital. TEST RESULTS PENDING ON DISCHARGE: None. ALLERGIES: No known drug allergy. DISCHARGE PLAN: Post hospital, the patient will be discharged to home with family support and she wi ll continue to have home health and she will follow up with primary care physician. HOSPITAL COURSE: An 82-year-old female who lives at home. Her daughter is taking care of her. She had vomiting and subsequently she aspirated and she became less responsive. She was in respiratory d istress and that is why she required intubation. The patient was brought to ER. Subsequently, she w as admitted to ICU. Dr. Millan was consulted for vent management. She was septic on admission. Sh sheldon had abnormal electrolytes on admission. The patient was hydrated with IV fluid and all her abnorma l electrolytes were corrected while in hospital. She was given vancomycin and Zosyn and subsequently the patient had a bronchoscopy and bronchoalveolar lavage that grew Klebsiella. At that point, we c hanged to Rocephin and on discharge, we changed to Omnicef. Rest of medication was continued while i n hospital. The patient was extubated and subsequently she was transferred to medical floor. The jack kami's family member wanted to take her home. The patient is seen and examined at bedside today. Based on her level of problems, the patient is at high risk for recurrent admission. Total time spent on discharge, 31 minutes.
--- NOTE | 2018-01-12 20:47 | PQF ---
ELBERT CABRERA SALIM NOORJIBHAI MD [id number] CLINICAL DOCUMENTATION CLARIFICATION FORM: POST DISCHARGE Addendum to original discharge summary date: ____ Late entry note date: __ DATE: 01/12/2018 ATTN: MARILIA BLEVINS Please exercise your independent, professional judgment in responding to the clarification form. Clinical indicators are provided on the bottom of this form for your review Please check appropriate box(es): [ x ] Sepsis due to: ASPIRATION PNEUMONIA MUCUS PLUG [ ] Localized infection without sepsis [ ] Other diagnosis [ ] Unable to determine In addition, please specify: Present on Admission (POA): [ x ] Yes [ ] No [ ] Unable to determine For continuity of documentation, please document condition throughout progress notes and discharge summary. Thank You. CLINICAL INDICATORS - SIGNS / SYMPTOMS / LABS Hypoxic Respiratory Failure Lactic Acidosis RISK FACTORS Dysphagia Sequela of stroke: Hemiparesis, Aphasia, Seizure Disorder Bed bound Contineous tube feedings Treatments: Intubation w/Ventilation Bronchoscopy w/BAL MTDD
== END 2018-01-10 12:30 | disposition home or self-care (01) | DRG 208 ==
LOC: ERS 06:06 → CCU 08:23 → T4-B 01-08 18:28
PROVIDERS: ADMIT Internal Medicine; ATTEND Internal Medicine
PROC: 5A1945Z Respiratory Ventilation, 24-96 Consecutive Hours (ICD-10-PCS; principal; 2018-01-05)
PROC: 3E0G76Z Introduction of Nutritional Substance into Upper GI, Via Natural or Artificial Opening (ICD-10-PCS; 2018-01-05)
DX: J69.0 Pneumonitis due to inhalation of food and vomit (principal); J96.01 Acute respiratory failure with hypoxia; A41.9 Sepsis, unspecified organism; G93.41 Metabolic encephalopathy; E87.2 Acidosis; T17.590A Other foreign object in bronchus causing asphyxiation, initial encounter; I69.354 Hemiplegia and hemiparesis following cerebral infarction affecting left non-dominant side; B96.1 Klebsiella pneumoniae [K. pneumoniae] as the cause of diseases classified elsewhere; I10 Essential (primary) hypertension; E78.5 Hyperlipidemia, unspecified; I69.391 Dysphagia following cerebral infarction; I69.398 Other sequelae of cerebral infarction; R13.10 Dysphagia, unspecified; R56.9 Unspecified convulsions; I69.320 Aphasia following cerebral infarction; Z93.1 Gastrostomy status; F32.9 Major depressive disorder, single episode, unspecified; F41.9 Anxiety disorder, unspecified; Z87.891 Personal history of nicotine dependence; I35.0 Nonrheumatic aortic (valve) stenosis; E87.6 Hypokalemia; E83.42 Hypomagnesemia; E83.39 Other disorders of phosphorus metabolism
CPT/HCPCS: 36415; 71045; 80048; 80053; 80202; 82805; 83605; 83735; 84100; 85007; 85027; 87070; 87077; 87186; 87205; 94002; 94003; 94640; 96374; J0696; J1650; J1940; J1953; J2060; J2270; J2543; J2704; J2920; J3010; J3370; J3475; J7050; J7070; J7620; S0028

== ENCOUNTER 2018-09-14 19:58 | Inpatient (IN) | payer MEDICARE ==
[2018-09-14] MEDS ORDERED: Pantoprazole 40 MG VIAL ONE (22:33)
[2018-09-14 22:42] LABS: #Basophils 0.1 thou/uL (0.0-0.2); #Eosinphils 0.1 thou/uL (0.0-0.7); #Lymphocytes 2.2 thou/uL (1.20-3.40); #Monocytes 0.7 thou/uL (0.11-0.59); #Neutrophils 6.1 thou/uL (1.40-6.50); %Basophils 0.6 % (0.0-1.0); %Eosinophils 1.4 % (0.0-10.0); %Lymphocytes 24.3 % (21.0-51.0); %Monocytes 7.8 % (0.0-10.0); %Neutrophils 65.8 % (42.0-75.0); Hemoglobin 9.8 g/dL (12.0-16.0); Mean Corpuscular HGB CONC 30.2 g/dL (32.0-36.0); Mean Corpuscular Hemoglobin 26.1 pg (27.0-31.0); Mean Corpuscular Volume 86.6 fL (78.0-98.0); Mean Platelet Volume 9.8 fL (7.4-10.4); Platelet Count 296 thou/uL (130-400); RBC Distribution Width 18.3 % (11.5-14.5); Red Blood Cell (RBC) Count 3.75 mill/uL (4.20-5.40); White Blood Cell (WBC) Count 9.2 thou/uL (4.8-10.8)
[2018-09-14 22:49] LABS: INR-International Normal Ratio 1.2; PTT 26.9 SEC (22.9-36.1)
[2018-09-14 23:02] LABS: ALT (SGPT) 14 U/L (8-55); AST (SGOT) 26 U/L (5-34); Albumin 3.4 g/dL (3.4-4.8); Alkaline Phosphatase 70 U/L (40-150); Anion Gap 13 mmol/L (10-20); BUN (Urea Nitrogen) 28 mg/dL (9.8-20.1); Bilirubin, Total 0.6 mg/dL (0.2-1.2); Calc. Creatinine Clearance 0 mL/min (70-130); Calcium 10.6 mg/dL (7.8-10.44); Carbon Dioxide 21 mmol/L (23-31); Chloride 105 mmol/L (98-107); Estimated GFR-MDRD 78; Globulin 3.9 g/dL (2.4-3.5); Glucose 91 mg/dL (83-110); Protein, Total 7.3 g/dL (6.0-8.3); Sodium 135 mmol/L (136-145)
[2018-09-15] MEDS ORDERED: Sodium Chloride 0.9% 1,000 ML IV SCH (01:30)
[2018-09-15 04:25] LABS: Lactic Acid 1.1 mmol/L (0.5-2.2)
[2018-09-15] MEDS ORDERED: Acetaminophen 325 MG TAB PO PRN (05:26)
[2018-09-15] MEDS ORDERED: Ondansetron PF 4 MG/2 ML Vial IVP PRN (05:26)
[2018-09-15] MEDS ORDERED: Ondansetron ODT 4 MG TAB PO PRN (05:26)
[2018-09-15] MEDS ORDERED: Acetaminophen 650 MG Suppository PR PRN (05:26)
[2018-09-15 06:56] LABS: #Eosinphils 0.1 thou/uL (0.0-0.7); #Lymphocytes 2.1 thou/uL (1.20-3.40); #Monocytes 0.8 thou/uL (0.11-0.59); #Neutrophils 6.2 thou/uL (1.40-6.50); %Basophils 0.4 % (0.0-1.0); %Lymphocytes 22.8 % (21.0-51.0); %Neutrophils 66.9 % (42.0-75.0); Hemoglobin 8.2 g/dL (12.0-16.0); Mean Corpuscular HGB CONC 30.8 g/dL (32.0-36.0); Mean Corpuscular Hemoglobin 26.2 pg (27.0-31.0); Mean Corpuscular Volume 85.1 fL (78.0-98.0); Platelet Count 249 thou/uL (130-400); Red Blood Cell (RBC) Count 3.15 mill/uL (4.20-5.40); White Blood Cell (WBC) Count 9.3 thou/uL (4.8-10.8)
--- NOTE | 2018-09-15 07:10 | HP ---
PRIMARY CARE DOCTOR: Dr. Tex Campos. CODE STATUS: Full code. TIME OF EVALUATION: 5:30 a.m. CHIEF COMPLAINT: Blood in the stool. HISTORY OF PRESENT ILLNESS: This is an 83 years old female patient with past medical history of hemorrhagic stroke in 2013, hypertension, TIAs with left side deficit, and dysphagia with PEG tube feeding, came to the hospital after having blood in the stools. The daughter reported that she noticed bright red blood for the past 3 days. Also, the stool has been getting darker. Of note, also the patient had an EGD done 2 weeks ago in [place] and she had received at that time 5 units of blood. She is also on Eliquis. Symptoms were mild. No clear triggers or alleviating factors. REVIEW OF SYSTEMS: Unable to obtain. The patient is nonverbal. PAST MEDICAL HISTORY: As mentioned in the HPI. SURGICAL HISTORY: PEG tube in August 2013, post CVA. PSYCHIATRIC HISTORY: No previous psych history. SOCIAL HISTORY: The patient lives with the family. No smoking history. The patient does not use alcohol. No drugs. Quit smoking more than 30 years ago. FAMILY HISTORY: Not significant for current presentation . KNOWN ALLERGIES: No known drug allergies. REPORTED MEDICATIONS: Unknown. PHYSICAL EXAMINATION: VITAL SIGNS: Blood pressure 118/65 with heart rate 72, respiratory rate was 19, temperature 98.7, oxygen saturation 97% on room air. GENERAL APPEARANCE: The patient is nonverbal. The patient has a sequela of stroke with left-sided weakness, aphasic. HEENT: Eyes; normal conjunctivae. Moist oral mucosa. Anicteric. No JVD. RESPIRATORY: Bilateral air entry. No rales. No wheezes. Symmetric expansion. CARDIOVASCULAR: The patient has normal rate and regular rhythm. No murmurs. No gallop. No edema. ABDOMEN: Soft. Normal bowel sounds. MUSCULOSKELETAL: Baseline range of motion and strength. The patient has a PEG tube. SKIN: Warm and intact. No pallor. No rash. No redness. The patient has bedsore. Capillary refill seems to be intact. NEURO: The patient has left-sided weakness and palsy from previous stroke. The patient is nonverbal, follows commands and can move right side of the body. PSYCH: Unable to explore. The patient is nonverbal. DIAGNOSTIC DATA: EKG was reviewed. The patient has first-degree AV block with heart rate of 74, OH interval 148, QRS 90, QT corrected 477. No evidence of any other acute events. LABORATORY DATA: Reviewed. White count 9.2, hemoglobin 9.8, MCV 86.6, platelet count 296. Coagulation; PT 15, INR 1.2, and PTT 26.9. Chemistry; sodium 135, potassium 4.0, chloride 105, carbon dioxide 21, anion gap 13, BUN 28, creatinine 0.8, GFR 78, glucose 91. Lactic acid 2.1 1.1, calcium 10.6. Total bilirubin 0.6. LFTs were negative. Troponin was negative. Albumin 3.4. ASSESSMENT AND PLAN: The patient will be placed in the hospital with the following medical problems. 1. Gastrointestinal bleeding. The patient is on Eliquis for atrial fibrillation. We will monitor hemoglobin, the last one was 9.8, has dropped 2 points from the previous one on 09/06. If hemoglobin keeps dropping, might need blood transfusion. We will call Gastroenterology for evaluation and will follow recommendations. We will hydrate as needed to keep hemodynamic stability. 2. Hyponatremia, sodium 135, this is mild. No need for any further intervention. We will monitor and we will treat accordingly. 3. Hypercalcemia with calcium 10.6, this is minimal. We will monitor. We will recheck after hydration. 4. Deep vein thrombosis prophylaxis. We will place the patient on SCDs. 5. History of hemorrhagic stroke with sequela with left-sided weakness with aphasia and dysphagia. Will need assistance as inpatient. 6. Dysphagia with PEG tube feeding. We will continue feeding as inpatient. 7. Pressure ulcer. We will consult Wound Care. 8. Uncontrolled hypertension. Patient had systolic 144 as inpatient. We will reconcile home medications. We will treat accordingly. We will not treat aggressively due to bleeding risk and for hypotension. Job ID: [id number]
[2018-09-15] MEDS ORDERED: AMIODARONE HCL 400 MG PO SCH (09:00)
[2018-09-15] MEDS ORDERED: Potassium Chloride 20 MEQ TAB PER TUBE SCH (09:00)
[2018-09-15] MEDS ORDERED: Losartan 25 MG TAB PO SCH (09:00)
[2018-09-15] MEDS ORDERED: Hydrochlorothiazide 25 MG TAB PO SCH (09:00)
[2018-09-15] MEDS: Pantoprazole 80 MG, Admixture Fee 1 EACH in Sodium Chloride 0.9% 100 ML IVPB SCH ×2 (09:57→19:48)
[2018-09-15] MEDS: levETIRAcetam 500 mg/5 ml Oral Solution PER TUBE SCH ×2 (10:05→20:48)
[2018-09-15] MEDS: Metoprolol Tartrate 25 MG TAB PER TUBE SCH ×2 (10:06→20:48)
[2018-09-15] MEDS: Escitalopram Oxalate 10 mg Tablet PER TUBE SCH (10:06)
[2018-09-15] MEDS: Amiodarone 200 MG TAB PO SCH (10:06)
[2018-09-15 10:13] LABS: #Basophils 0.1 thou/uL (0.0-0.2); #Eosinphils 0.1 thou/uL (0.0-0.7); #Lymphocytes 1.9 thou/uL (1.20-3.40); #Neutrophils 5.1 thou/uL (1.40-6.50); %Basophils 0.7 % (0.0-1.0); %Eosinophils 1.4 % (0.0-10.0); %Lymphocytes 23.3 % (21.0-51.0); %Monocytes 11.7 % (0.0-10.0); Hemoglobin 9.1 g/dL (12.0-16.0); Mean Corpuscular HGB CONC 30.5 g/dL (32.0-36.0); Mean Corpuscular Hemoglobin 26.2 pg (27.0-31.0); Mean Corpuscular Volume 85.9 fL (78.0-98.0); Mean Platelet Volume 10.2 fL (7.4-10.4); Platelet Count 229 thou/uL (130-400); Red Blood Cell (RBC) Count 3.47 mill/uL (4.20-5.40); White Blood Cell (WBC) Count 8.1 thou/uL (4.8-10.8)
[2018-09-15] MEDS: Pregabalin 25 MG CAP PER TUBE SCH (11:26)
[2018-09-15] MEDS: Dextrose 5 %-0.45 % NaCl 1,000 ML IV SCH (12:35)
[2018-09-15 16:26] LABS: Hemoglobin 8.2 g/dL (12.0-16.0)
[2018-09-15 16:27] LABS: Reticulocyte Count 4.2 % (0.5-1.5)
[2018-09-15 16:41] LABS: Iron 26 ug/dL (50-170); Iron Binding Capacity, Total 229 mcg/dL (265-497)
--- NOTE | 2018-09-15 18:26 | CON ---
DATE OF CONSULTATION: 09/15/2018 CHIEF COMPLAINT: Blood in the stool. HISTORY OF PRESENT ILLNESS: Ms. Contreras is an 83-year-old woman, who presented to the emergency room with black bloody stools. She was recently hospitalized possibly just a couple of weeks ago at an outside hospital with a GI bleed. She underwent upper endoscopy and had a clip placed to a lesion in the small intestine. The patient was discharged on Eliquis and aspirin. The patient's daughter was unable to fill the proton pump inhibitor because she was not able to get a form that could be placed through the PEG tube. She has been taking no proton pump inhibitor since she was discharged from the other hospital over the last couple of weeks. She did notice a small amount of bright red blood mixed with stool. However, more significantly for the last 4 days, she has had 1 or 2 black stools per day. She has had no nausea or vomiting. No trouble breathing or chest pain. She does have a PEG tube in place since 2013. It has been replaced once and the current one the daughter believes has been in since 2014. PAST MEDICAL HISTORY: Hypertension; stroke; dysphasia, however, daughter believes she understands everything, but just cannot speak. Oropharyngeal dysphagia, status post PEG tube placement. PAST SURGICAL HISTORY: PEG tube placement. FAMILY HISTORY: Negative for GI malignancy. SOCIAL HISTORY: No alcohol, tobacco, or drugs. ALLERGIES: NO KNOWN DRUG ALLERGIES. MEDICATIONS: Home medications: 1. Levetiracetam. 2. Pregabalin. 3. Potassium chloride. 4. Polyethylene glycol. 5. Metoprolol. 6. Losartan/hydrochlorothiazide. 7. Aspirin. 8. Eliquis. 9. Amitriptyline. 10. Amiodarone. 11. Lexapro. Here in the hospital, she is on: 1. Amiodarone. 2. Amitriptyline. 3. Lexapro. 4. Hydrochlorothiazide. 5. Levetiracetam. 6. Losartan. 7. Metoprolol. 8. Pantoprazole drip. 9. Pregabalin. 10. Simvastatin. REVIEW OF SYSTEMS: Unobtainable due to the patient's dysphasia from her prior stroke. PHYSICAL EXAMINATION: VITAL SIGNS: Temperature 98.1, pulse 66, blood pressure 137/62. GENERAL: She is in no acute distress. Awake and responsive. LUNGS: Clear to auscultation bilaterally. HEART: Regular rate and rhythm without murmur. ABDOMEN: Soft, nontender, nondistended. Bowel sounds are present. EXTREMITIES: No lower extremity edema. She has liquidy black stool in the diaper. LABORATORY DATA: Her hemoglobin is 8.2 today, down from 9.8 on presentation yesterday. INR 1.2. Iron 26, TIBC 229, calcium 10.6, creatinine 0.85. IMPRESSION: Recurrent gastrointestinal bleed, on aspirin and Eliquis. She just had a lesion clipped in the first part of the small bowel per the patient's daughter's report a couple of weeks ago. Her daughter was unable to fill the proton pump inhibitor prescribed related to questions about placing it through the percutaneous endoscopic gastrostomy tube. RECOMMENDATIONS: 1. We will continue the PPI drip. 2. Eliquis is held. Her last dose was at noon yesterday. 3. Plan to repeat the EGD to assess rebleeding risk. 4. In the future, she can fill pantoprazole granules or even open Nexium capsules and may be reasonable to avoid the anticoagulation completely in the future. Job ID: [id number]
[2018-09-15] MEDS: Amitriptyline HCl 25 MG TAB PER TUBE SCH (20:48)
[2018-09-15] MEDS: Simvastatin 40 MG TAB PER TUBE SCH (20:48)
[2018-09-16 05:55] LABS: Anion Gap 10 mmol/L (10-20); BUN (Urea Nitrogen) 21 mg/dL (9.8-20.1); Calc. Creatinine Clearance 67 mL/min (70-130); Calcium 9.5 mg/dL (7.8-10.44); Carbon Dioxide 23 mmol/L (23-31); Chloride 108 mmol/L (98-107); Estimated GFR-MDRD 87; Glucose 94 mg/dL (83-110); Magnesium 1.7 mg/dL (1.6-2.6); Potassium 3.5 mmol/L (3.5-5.1); Sodium 137 mmol/L (136-145)
[2018-09-16 06:03] LABS: Anisocytosis SLIGHT = 6-15 cells (100X) (0-5/hpf); Band 4 % (5-11); Eosinophils 1 % (0-10); Hemoglobin 10.1 g/dL (12.0-16.0); Lymphocytes 31 % (21-51); MDiff Complete? YES; Mean Corpuscular HGB CONC 32.4 g/dL (32.0-36.0); Mean Corpuscular Hemoglobin 27.7 pg (27.0-31.0); Mean Corpuscular Volume 85.4 fL (78.0-98.0); Monocytes 14 % (0-10); Neutrophil 49 % (42-75); Platelet Count 197 thou/uL (130-400); RBC Distribution Width 17.5 % (11.5-14.5); Red Blood Cell (RBC) Count 3.64 mill/uL (4.20-5.40)
[2018-09-16] MEDS: Dextrose 5 %-0.45 % NaCl 1,000 ML IV SCH ×2 (06:35→19:38)
[2018-09-16] MEDS: Pantoprazole 80 MG, Admixture Fee 1 EACH in Sodium Chloride 0.9% 100 ML IVPB SCH (06:37)
[2018-09-16] MEDS ORDERED: Ondansetron HCl/PF 4 MG/2 ML Vial IVP PRN (10:06)
--- NOTE | 2018-09-16 10:36 | OP ---
DATE OF PROCEDURE: 09/16/2018 PROCEDURE PERFORMED: Esophagogastroduodenoscopy. PREOPERATIVE DIAGNOSES: Gastrointestinal bleed and anemia of acute blood loss on chronic anticoagulation. She had an upper endoscopy within the last couple of weeks with a clip placed over a duodenal lesion. DESCRIPTION OF PROCEDURE: Informed consent was obtained. The patient was sedated with total intravenous anesthesia. The endoscope was advanced easily to the second portion of the duodenum and retroflexion was performed in the stomach. The esophagus was normal. The GE junction was normal. The stomach had a gastrostomy tube in good position in the body of the stomach and appeared healthy around it. The stomach was normal including retroflex views. The patient did develop barotrauma to the mucosa of the stomach just with air insufflation. Her mucosa of the upper esophagus and stomach was very friable, likely related to the anticoagulation. The pylorus and first and second portions of the duodenum overall look normal except for the second portion of the duodenum. There was a small erosion with a clip in place over it. The mucosa around here looked very healthy and certainly, there were no signs of recent bleeding. There was no vessel around the area of the clip and this appears to be healing nicely here. No further intervention is indicated to the site. IMPRESSION: 1. There is a hemoclip in place over a small erosion in the second portion of the duodenum without stigmata of recent bleeding. 2. There is a gastrostomy tube in good position in the body of the stomach with healthy-appearing mucosa around it. 3. She does have friable mucosa sensitive to air insufflation and advancement of the scope through the esophagus and stomach. This is likely due to the anticoagulation. No active bleeding source is present. RECOMMENDATIONS: 1. Proton pump inhibitor daily. 2. At this point given repeated GI bleeds and this most recent one without any obvious source and it would be reasonable to consider discontinuation of the anticoagulation. 3. Advance diet. 4. I will sign off. Please call if GI can be of assistance. Job ID: [id number]
[2018-09-16] MEDS: Escitalopram Oxalate 10 mg Tablet PER TUBE SCH (11:24)
[2018-09-16] MEDS: Amiodarone 200 MG TAB PO SCH (11:24)
[2018-09-16] MEDS: Folic Acid 1 MG TAB PER TUBE SCH (11:24)
[2018-09-16] MEDS: Cyanocobalamin (Vitamin B-12) 1,000 MCG TAB PER TUBE SCH (11:24)
[2018-09-16] MEDS: levETIRAcetam 500 mg/5 ml Oral Solution PER TUBE SCH ×2 (11:24→22:11)
[2018-09-16] MEDS: Metoprolol Tartrate 25 MG TAB PER TUBE SCH ×2 (11:24→22:13)
[2018-09-16] MEDS: Pregabalin 25 MG CAP PER TUBE SCH (11:25)
[2018-09-16] MEDS ORDERED: Pancrelipase DR 12000 1 CAP FS PRN (12:48)
[2018-09-16] MEDS ORDERED: Sodium Bicarbonate Tab 325 MG TAB PER TUBE PRN (12:48)
--- NOTE | 2018-09-16 22:02 | PDOC.PN ---
- Subjective Encounter Start Date: 09/16/18 Encounter Start Time: 16:00 -: non-verbal Patient seen and examined for GI bleed. Small amt of bloody stool earlier. No overnight events - Objective Resuscitation Status - Order Detail: 09/15/18 05:26 Resuscitation Status Routine Resuscitation Status: FULL: Full Resuscitation MAR Reviewed: Yes Vital Signs & Weight: Vital Signs (12 hours) Temp Pulse Resp BP Pulse Ox 09/16/18 16:55 98.1 F 71 20 119/66 100 09/16/18 11:25 98.2 F 73 18 122/57 L 93 L Weight Admit Weight 163 lb Weight 163 lb I&O: 09/15/18 09/16/18 09/17/18 06:59 06:59 06:59 Intake Total 900 1118 Balance 900 1118 Result Diagrams: 09/17/18 05:17 09/17/18 05:17 EKG Reviewed by me: Yes (Tele SR) Phys Exam - Physical Examination Constitutional: NAD Respiratory: no wheezing, no rales, no rhonchi, clear to auscultation bilateral Cardiovascular: RRR, no rub no heaves/pulsations Gastrointestinal: soft, non-tender, no distention, positive bowel sounds Musculoskeletal: no edema Neuro/Psych - Cannot assess due to current mentation Dx/Plan (1) GI bleed Code(s): K92.2 - GASTROINTESTINAL HEMORRHAGE, UNSPECIFIED Status: Acute (2) Acute blood loss anemia Code(s): D62 - ACUTE POSTHEMORRHAGIC ANEMIA Status: Acute (3) H/O: CVA (cerebrovascular accident) Code(s): Z86.73 - PRSNL HX OF TIA (TIA), AND CEREB INFRC W/O RESID DEFICITS (4) On tube feeding diet Code(s): Z78.9 - OTHER SPECIFIED HEALTH STATUS (5) Swallowing dysfunction Code(s): R13.10 - DYSPHAGIA, UNSPECIFIED (6) Obesity (BMI 30.0-34.9) Code(s): E66.9 - OBESITY, UNSPECIFIED (7) HTN (hypertension) Code(s): I10 - ESSENTIAL (PRIMARY) HYPERTENSION Status: Chronic - Plan cont current plan of care, DVT proph w/SCDs s/p EGD and 1 unit PRBC transfusion -: AM labs -: Cont PPI, Keppra, Metoprolol. HCTZ on hold. Reduce IVF to KVO in AM -: Cont other meds as below -: Resume ASA/Eliquis when ok with GI, Cont other meds Review of Systems - Review of Systems Other: Cannot obtain due to current mentation - Medications/Allergies Allergies/Adverse Reactions: Allergies Allergy/AdvReac Type Severity Reaction Status Date / Time No Known Drug Allergies Allergy Verified 09/15/18 01:18 Medications: Current Medications Acetaminophen (Tylenol) 650 mg PO Q4H PRN PRN Reason: Headache/Fever/Mild Pain (1-3) Acetaminophen (Tylenol) 650 mg GA Q4H PRN PRN Reason: Headache/Fever/Mild Pain (1-3) Amiodarone HCl (Cordarone) [address] [facility] Last Admin: 09/16/18 11:24 Dose: 400 mg Amitriptyline HCl (Elavil) [address] [facility] Last Admin: 09/15/18 20:48 Dose: 25 mg Lipase/Protease/Amylase ([place] [address]) 1 cap FS .PER PROTOCOL PRN PRN Reason: TUBE OCCLUSION PROTOCOL Cyanocobalamin (Vitamin B-12) 1,000 mcg [address] TUBE DAILY [facility] Last Admin: 09/16/18 11:24 Dose: 1,000 mcg Escitalopram Oxalate (Lexapro) [address] [facility] Last Admin: 09/16/18 11:24 Dose: 10 mg Folic Acid (Folvite) [address] [facility] Last Admin: 09/16/18 11:24 Dose: 1 mg Hydrochlorothiazide (Hydrochlorothiazide) [address] [facility] Last Admin: 09/15/18 10:06 Dose: 25 mg Pantoprazole Sodium 80 mg/Miscellaneous Medication 1 each/ Sodium Chloride 100 mls @ 10 mls/hr IVPB INF [facility] Last Admin: 09/16/18 06:37 Dose: 100 mls Dextrose/Sodium Chloride (D5 1/2 Ns) 1,000 mls @ 75 mls/hr IV .[id number] [facility] Last Admin: 09/16/18 19:38 Dose: 1,000 mls Levetiracetam (Keppra Oral Solution) [address] [facility] Last Admin: 09/16/18 11:24 Dose: 100 mg Losartan Potassium (Cozaar) [address] [facility] Last Admin: 09/15/18 10:06 Dose: 100 mg Metoprolol Tartrate (Lopressor) 50 mg PER TUBE BID [facility] Last Admin: 09/16/18 11:24 Dose: 50 mg Ondansetron HCl (Zofran Odt) 4 mg PO Q6H PRN PRN Reason: Nausea/Vomiting Ondansetron HCl (Zofran) 4 mg IVP Q6H PRN PRN Reason: Nausea/Vomiting Pregabalin (Lyrica) [address] [facility] Last Admin: 09/16/18 11:25 Dose: 25 mg Simvastatin (Zocor) [address] [facility] Last Admin: 09/15/18 20:48 Dose: 40 mg Sodium Bicarbonate (Bicarbonate, Sodium) 650 mg PER TUBE .PER PROTOCOL PRN PRN Reason: ENTERAL TUBE OCCLUSION Sodium Chloride (Flush - Normal Saline) 10 ml IVF PRN PRN PRN Reason: Saline Flush
[2018-09-16] MEDS: Simvastatin 40 MG TAB PER TUBE SCH (22:13)
[2018-09-16] MEDS: Amitriptyline HCl 25 MG TAB PER TUBE SCH (22:13)
[2018-09-17] MEDS: Pantoprazole 80 MG, Admixture Fee 1 EACH in Sodium Chloride 0.9% 100 ML IVPB SCH ×2 (01:58→10:41)
[2018-09-17 05:47] LABS: Anion Gap 9 mmol/L (10-20); BUN (Urea Nitrogen) 12 mg/dL (9.8-20.1); Calc. Creatinine Clearance 73 mL/min (70-130); Calcium 9.2 mg/dL (7.8-10.44); Carbon Dioxide 21 mmol/L (23-31); Chloride 110 mmol/L (98-107); Estimated GFR-MDRD Greater than 90; Glucose 99 mg/dL (83-110); Magnesium 1.6 mg/dL (1.6-2.6); Potassium 3.5 mmol/L (3.5-5.1); Sodium 136 mmol/L (136-145)
[2018-09-17 05:56] LABS: Band 3 % (5-11); Eosinophils 1 % (0-10); Hemoglobin 10.2 g/dL (12.0-16.0); Lymphocytes 24 % (21-51); MDiff Complete? YES; Mean Corpuscular HGB CONC 30.4 g/dL (32.0-36.0); Mean Corpuscular Hemoglobin 26.2 pg (27.0-31.0); Mean Corpuscular Volume 86.1 fL (78.0-98.0); Mean Platelet Volume 10.2 fL (7.4-10.4); Monocytes 14 % (0-10); Neutrophil 58 % (42-75); Platelet Count 179 thou/uL (130-400); RBC Distribution Width 17.6 % (11.5-14.5); Red Blood Cell (RBC) Count 3.89 mill/uL (4.20-5.40); White Blood Cell (WBC) Count 9.6 thou/uL (4.8-10.8)
[2018-09-17] MEDS ORDERED: Dextrose 5 %-0.45 % NaCl 1,000 ML IV SCH (08:16)
[2018-09-17] MEDS: Pregabalin 25 MG CAP PER TUBE SCH (09:12)
[2018-09-17] MEDS: Cyanocobalamin (Vitamin B-12) 1,000 MCG TAB PER TUBE SCH (09:12)
[2018-09-17] MEDS: Escitalopram Oxalate 10 mg Tablet PER TUBE SCH (09:12)
[2018-09-17] MEDS: Folic Acid 1 MG TAB PER TUBE SCH (09:12)
[2018-09-17] MEDS: Amiodarone 200 MG TAB PO SCH (09:12)
[2018-09-17] MEDS: Metoprolol Tartrate 25 MG TAB PER TUBE SCH ×2 (09:12→22:04)
[2018-09-17] MEDS: levETIRAcetam 500 mg/5 ml Oral Solution PER TUBE SCH ×2 (09:13→22:05)
[2018-09-17] MEDS: Dextrose 5 %-0.45 % NaCl 1,000 ML IV SCH (10:38)
[2018-09-17] MEDS ORDERED: Magnesium 2 GM/50 ML 2 GM in Premix Bag 1 BAG IVPB SCH (22:00)
--- NOTE | 2018-09-17 22:03 | PDOC.HOSPP ---
- Subjective non-verbal - Objective Vital Signs & Weight: Vital Signs (12 hours) Temp Pulse Resp BP Pulse Ox 09/17/18 20:20 97.9 F 74 18 145/64 H 100 09/17/18 16:20 98.7 F 69 18 138/58 L 100 09/17/18 11:25 98.4 F 62 18 124/58 L 100 Weight Admit Weight 163 lb Weight 176 lb 6 oz I&O: 09/16/18 09/17/18 09/18/18 06:59 06:59 06:59 Intake Total 900 2908 1251 Balance 900 2908 1251 Result Diagrams: 09/17/18 05:17 09/17/18 05:17 EKG Reviewed by me: Yes (Tele SR) ROS - Review of Systems ROS unobtainable: due to mental status All systems: All other ROS were reviewed and found negative. - Medication Medications: Active Medications Generic Name Dose Route Start Last Admin Trade Name Freq PRN Reason Stop Dose Admin Amiodarone HCl 400 mg 09/15/18 09:00 09/17/18 09:12 Cordarone PO 400 mg DAILY [facility] Administration Amitriptyline HCl 25 mg 09/15/18 21:00 09/16/18 22:13 Elavil PER TUBE 25 mg HS [facility] Administration Cyanocobalamin 1,000 mcg 09/16/18 09:00 09/17/18 09:12 Vitamin B-12 PER TUBE 1,000 mcg DAILY [facility] Administration Escitalopram Oxalate 10 mg 09/15/18 09:00 09/17/18 09:12 Lexapro PER TUBE 10 mg DAILY [facility] Administration Folic Acid 1 mg 09/16/18 09:00 09/17/18 09:12 Folvite PER TUBE 1 mg DAILY [facility] Administration Hydrochlorothiazide 25 mg 09/15/18 09:00 09/15/18 10:06 Hydrochlorothiazide PO 25 mg DAILY [facility] Administration Levetiracetam 100 mg 09/15/18 09:00 09/17/18 09:13 Keppra Oral Solution PER TUBE 100 mg BID [facility] Administration Losartan Potassium 100 mg 09/15/18 09:00 09/15/18 10:06 Cozaar PO 100 mg DAILY [facility] Administration Metoprolol Tartrate 50 mg 09/15/18 09:00 09/17/18 09:12 Lopressor PER TUBE 50 mg BID [facility] Administration Pregabalin 25 mg 09/15/18 09:00 09/17/18 09:12 Lyrica PER TUBE 25 mg DAILY [facility] Administration Simvastatin 40 mg 09/15/18 21:00 09/16/18 22:13 Zocor PER TUBE 40 mg HS [facility] Administration - Exam NAD Heart: RRR, no gallops Respiratory: CTAB, no rales Gastrointestinal: soft, non-tender Extremities: no edema Hosp A/P (1) GI bleed Code(s): K92.2 - GASTROINTESTINAL HEMORRHAGE, UNSPECIFIED Status: Acute (2) Acute blood loss anemia Code(s): D62 - ACUTE POSTHEMORRHAGIC ANEMIA Status: Acute (3) Hypomagnesemia Code(s): E83.42 - HYPOMAGNESEMIA Status: Acute (4) H/O: CVA (cerebrovascular accident) Code(s): Z86.73 - PRSNL HX OF TIA (TIA), AND CEREB INFRC W/O RESID DEFICITS (5) On tube feeding diet Code(s): Z78.9 - OTHER SPECIFIED HEALTH STATUS (6) Swallowing dysfunction Code(s): R13.10 - DYSPHAGIA, UNSPECIFIED (7) Obesity (BMI 30.0-34.9) Code(s): E66.9 - OBESITY, UNSPECIFIED (8) HTN (hypertension) Code(s): I10 - ESSENTIAL (PRIMARY) HYPERTENSION Status: Chronic - Plan plan discussed w/ family, DVT proph w/SCDs Change IV Protonix drip to PO HH in AM DC IVF Cont other meds as below Replace Magnessium Eliquis on hold per GI Resume ASA in 2-3 days DC in 1-2 days if stable
[2018-09-17] MEDS: Simvastatin 40 MG TAB PER TUBE SCH (22:04)
[2018-09-17] MEDS: Amitriptyline HCl 25 MG TAB PER TUBE SCH (22:05)
[2018-09-18 05:42] LABS: Hemoglobin 9.1 g/dL (12.0-16.0)
[2018-09-18] MEDS ORDERED: Pantoprazole 40 MG GRANULES PACKET PER TUBE SCH (09:00)
[2018-09-18] MEDS: Metoprolol Tartrate 25 MG TAB PER TUBE SCH (09:11)
[2018-09-18] MEDS: levETIRAcetam 500 mg/5 ml Oral Solution PER TUBE SCH (09:11)
[2018-09-18] MEDS: Cyanocobalamin (Vitamin B-12) 1,000 MCG TAB PER TUBE SCH (09:11)
[2018-09-18] MEDS: Folic Acid 1 MG TAB PER TUBE SCH (09:12)
[2018-09-18] MEDS: Amiodarone 200 MG TAB PO SCH (09:12)
[2018-09-18] MEDS: Escitalopram Oxalate 10 mg Tablet PER TUBE SCH (09:12)
[2018-09-18] MEDS: Pregabalin 25 MG CAP PER TUBE SCH (09:13)
[2018-09-18 12:27] VITALS: BMI 33.3
[2018-09-18 15:07] VITALS: BP 120/85; TEMP 97.6
--- NOTE | 2018-09-19 05:27 | DIS ---
DATE OF ADMISSION: 09/15/2018 DATE OF DISCHARGE: 09/18/2018 PRIMARY CARE PROVIDER: Dr. Tex Campos. DISCHARGE DIAGNOSES: 1. Gastrointestinal bleed. 2. Acute blood loss anemia. CONDITION OF PATIENT ON THE DAY OF DISCHARGE: Stable. I assessed Ms. Contreras on the day of discharge. She is nonverbal. Vital signs are stable. S1 and S2 are heard, regular. Lungs are clear to auscultation bilaterally. CONSULTATIONS DURING THIS HOSPITALIZATION: Gastroenterology, Dr. Lee. DISCHARGE MEDICATIONS: 1. Amiodarone 400 mg daily. 2. Hydrochlorothiazide 25 mg daily. 3. Keppra 100 mg per tube b.i.d. 4. Losartan 100 mg daily. 5. Lyrica 25 mg per tube daily. 6. Elavil 25 mg per tube at bedtime. 7. Aspirin 81 mg per tube daily, to be resumed after three days. 8. Lexapro 10 mg per tube daily. 9. Lopressor 50 mg per tube two times a day. 10. MiraLAX 17 g per tube daily. 11. Potassium chloride 20 mEq per tube daily. 12. Apixaban has been discontinued. HOSPITAL COURSE: Ms. Contreras is a pleasant 83-year-old lady, who was admitted to [facility] for recurrent GI bleed. Please refer to Dr. Parker's history and physical note dated September 15, 2018, for further details. She was seen by Gastroenterology Service. She underwent EGD on September 16, 2018. She had hemoclip in place over a small erosion in the second portion of the duodenum without stigmata of recent bleeding. She also had a gastrostomy tube in good position in the body of stomach with healthy-appearing mucosa around it. She had friable mucosa sensitive to air insufflation and advancement of the scope through the esophagus and stomach. This is likely due to anticoagulation. No active bleeding source was found. Gastroenterology Service recommended daily PPI. Also, given repeated GI bleeds and the recent one without any obvious source, they recommended considering discontinuation of anticoagulation. They advised resuming aspirin after three days. Patient is advised to follow up with primary care provider and have hemoglobin rechecked in a week's time. On the day of discharge, she has hemoglobin 9.1 and hematocrit 30. Many thanks for allowing me to participate in your patient's care. Please feel free to contact me with any questions or concerns. DISCHARGE DESTINATION: Home with [facility]. Total amount of time spent coordinating this discharge: 32 minutes. Job ID: [id number]
== END 2018-09-18 21:00 | disposition home or self-care (01) | DRG 378 ==
LOC: ERS 19:58 → 2NO 09-15
PROVIDERS: ADMIT Hospitalist; ATTEND Hospitalist
PROC: 0W3P8ZZ Control Bleeding in Gastrointestinal Tract, Via Natural or Artificial Opening Endoscopic (ICD-10-PCS; principal; 2018-09-16)
DX: K26.4 Chronic or unspecified duodenal ulcer with hemorrhage (principal); D62 Acute posthemorrhagic anemia; E83.42 Hypomagnesemia; E66.9 Obesity, unspecified; R13.10 Dysphagia, unspecified; I10 Essential (primary) hypertension; Z86.73 Personal history of transient ischemic attack (TIA), and cerebral infarction without residual deficits; Z68.33 Body mass index [BMI] 33.0-33.9, adult; Z93.1 Gastrostomy status; Z79.01 Long term (current) use of anticoagulants
CPT/HCPCS: 36415; 36430; 80048; 80053; 83540; 83550; 83605; 83735; 84484; 85014; 85018; 85025; 85046; 85610; 85730; 86850; 86900; 86901; 93005; C9113; J3475; J3490; P9016

== ENCOUNTER 2018-10-31 18:22 | Observation (INO) | payer MEDICARE ==
[2018-10-31 19:12] LABS: #Eosinphils 0.2 thou/uL (0.0-0.7); #Lymphocytes 2.1 thou/uL (1.20-3.40); #Monocytes 0.6 thou/uL (0.11-0.59); #Neutrophils 1.9 thou/uL (1.40-6.50); %Basophils 0.3 % (0.0-1.0); %Eosinophils 3.3 % (0.0-10.0); %Monocytes 12.7 % (0.0-10.0); %Neutrophils 39.8 % (42.0-75.0); Hemoglobin 10.8 g/dL (12.0-16.0); Mean Corpuscular HGB CONC 31.3 g/dL (32.0-36.0); Mean Corpuscular Hemoglobin 24.4 pg (27.0-31.0); Mean Corpuscular Volume 77.9 fL (78.0-98.0); Mean Platelet Volume 6.8 fL (7.4-10.4); Platelet Count 215 thou/uL (130-400); RBC Distribution Width 19.7 % (11.5-14.5); Red Blood Cell (RBC) Count 4.44 mill/uL (4.20-5.40); White Blood Cell (WBC) Count 4.8 thou/uL (4.8-10.8)
[2018-10-31 20:20] LABS: Albumin 3.3 g/dL (3.4-4.8)
[2018-10-31 20:21] LABS: Chloride 104 mmol/L (98-107)
[2018-10-31 20:22] LABS: Calcium 10.5 mg/dL (7.8-10.44); Potassium 4.1 mmol/L (3.5-5.1); Sodium 137 mmol/L (136-145)
[2018-10-31 20:23] LABS: Globulin 4.3 g/dL (2.4-3.5); Glucose 93 mg/dL (83-110); Protein, Total 7.6 g/dL (6.0-8.3)
[2018-10-31 20:24] LABS: Anion Gap 11 mmol/L (10-20); Carbon Dioxide 26 mmol/L (23-31)
[2018-10-31 20:25] LABS: Bilirubin, Total 0.3 mg/dL (0.2-1.2)
[2018-10-31 20:26] LABS: Alkaline Phosphatase 75 U/L (40-150); Calc. Creatinine Clearance 0 mL/min (70-130); Estimated GFR-MDRD 87
[2018-10-31 20:27] LABS: BUN (Urea Nitrogen) 11 mg/dL (9.8-20.1)
[2018-10-31 20:28] LABS: AST (SGOT) 21 U/L (5-34)
[2018-10-31 20:29] LABS: ALT (SGPT) 16 U/L (8-55)
[2018-10-31] MEDS ORDERED: Pantoprazole 40 MG VIAL ONE (21:31)
[2018-11-01 02:03] LABS: Hemoglobin 11.6 g/dL (12.0-16.0)
[2018-11-01 03:03] VITALS: BMI 28.1
[2018-11-01] MEDS ORDERED: Acetaminophen 325 MG TAB PO PRN (03:06)
[2018-11-01] MEDS ORDERED: Acetaminophen 650 MG Suppository PR PRN (03:06)
[2018-11-01 04:06] LABS: Anion Gap 16 mmol/L (10-20); BUN (Urea Nitrogen) 11 mg/dL (9.8-20.1); Calc. Creatinine Clearance 73 mL/min (70-130); Calcium 10.5 mg/dL (7.8-10.44); Carbon Dioxide 21 mmol/L (23-31); Chloride 106 mmol/L (98-107); Estimated GFR-MDRD Greater than 90; Glucose 80 mg/dL (83-110); Sodium 138 mmol/L (136-145)
[2018-11-01 04:26] LABS: Band 5 % (5-11); Hemoglobin 10.9 g/dL (12.0-16.0); Hypochromia SLIGHT = 6-15 cells (100X) (0-5/hpf); Lymphocytes 26 % (21-51); MDiff Complete? YES; Mean Corpuscular HGB CONC 31.9 g/dL (32.0-36.0); Mean Corpuscular Hemoglobin 24.3 pg (27.0-31.0); Mean Corpuscular Volume 76.3 fL (78.0-98.0); Mean Platelet Volume 12.1 fL (7.4-10.4); Microcytosis SLIGHT = 6-15 cells (100X) (0-5/hpf); Monocytes 1 % (0-10); Neutrophil 68 % (42-75); Platelet Count 180 thou/uL (130-400); Platelet Morphology Comment Appears Adequate; RBC Distribution Width 18.3 % (11.5-14.5); Red Blood Cell (RBC) Count 4.48 mill/uL (4.20-5.40); White Blood Cell (WBC) Count 6.5 thou/uL (4.8-10.8)
--- NOTE | 2018-11-01 05:22 | HP ---
PRIMARY CARE PHYSICIAN: Tex Campos MD CHIEF COMPLAINT: Black stools. HISTORY OF PRESENT ILLNESS: Ms. Conrteras is an 83-year-old woman with two days history of melena. According to her daughter, she has had approximately four black stools in total since yesterday. She has a history of upper GI bleed and has undergone cauterization of a bleeding area involving the duodenum in the past. She more recently underwent an EGD on September 16, 2018, done by Dr. Lee. There was a hemoclip placed over small erosion in the second portion of the duodenum without stigmata of recent bleeding. The gastrostomy tube had been deemed to be in good position with surrounding healthy-appearing mucosa. There was mention of friable mucosa sensitive to air insufflation. This was attributed to chronic anticoagulation. There was no active bleeding present. The patient was placed on a PPI. Consideration of anticoagulation discontinuation was advised. The patient is no longer on anticoagulation and now experiencing recurrent melena. She has a history of severe stroke with left-sided paralysis. She is not verbal. She is on tube feedings. She was recently admitted to the hospital from 09/25/2018 to 09/30/2018 with acute metabolic encephalopathy. The patient had been treated for urinary tract infection and had notable improvement. She was discharged home on ciprofloxacin. She has done well since then until now. Unable to obtain history from patient due to her being nonverbal at baseline but according to the daughter, she has not had any recent fevers, chills, or sweats. No headaches or dizziness. No apparent abdominal pain. All other review of systems are negative. PAST MEDICAL HISTORY: 1. Previous hemorrhagic cerebrovascular accident, residual left-sided paralysis. 2. Hypertension. 3. Seizures. 4. Transient ischemic attack. 5. Dyslipidemia. PAST SURGICAL HISTORY: 1. PEG tube placement in August 2013 post CVA. 2. EGD status post ablation and then clamping to suspected site of bleeding/friability. SOCIAL HISTORY: The patient lives at home with a caregiver. No alcohol consumption. No smoking or drug use. ALLERGIES: NO KNOWN DRUG ALLERGIES. CURRENT MEDICATIONS: 1. Amitriptyline. 2. Escitalopram. 3. Metoprolol tartrate. 4. Polyethylene glycol. 5. Potassium chloride. 6. Lyrica. 7. Hydrochlorothiazide. 8. Losartan. 9. Keppra. 10. Amiodarone. 11. Lipitor. 12. Aspirin. 13. Esomeprazole. 14. MiraLAX. PHYSICAL EXAMINATION: GENERAL: The patient appears well developed and in no acute distress. Found resting comfortably in bed. VITAL SIGNS: Temperature 98.4, pulse 81, respirations 18, O2 saturation 95% on room air, and blood pressure 159/92. HEENT: Normocephalic and atraumatic. Pupils are equal, round, and reactive to light. Sclerae without icterus. NECK: Supple. LUNGS: Clear to auscultation bilaterally. CARDIAC: Notable for loud systolic murmur. ABDOMEN: Feeding tube present in her left upper quadrant. No apparent tenderness to palpation. EXTREMITIES: No lower leg edema. NEUROLOGIC: The patient with left-sided paralysis due to previous hemorrhagic strokes. Nonverbal at baseline. SKIN: Without rash or jaundice. LABORATORY DATA: White blood count 4.8, hemoglobin 10.8, hematocrit 34.6, platelets 215. Sodium 137, potassium 4.1, BUN 11, creatinine 0.77, GFR 87, glucose 93, calcium 10.5, total bilirubin 0.3, AST 21, ALT 16, alkaline phosphatase 75, total protein 7.6, and albumin 3.3. IMAGING DATA: None. IMPRESSION AND PLAN: Ms. Contreras is an 83-year-old woman, who is nonverbal and bed-bound due to previous hemorrhagic cerebrovascular accidents with residual left-sided paralysis. The patient is nonverbal at baseline. Presenting with melena for the last 2 days. No apparent discomfort or abdominal pain per daughter and with no apparent discomfort on exam. She has had upper GI bleeds in the past requiring cauterization and more recently clipping done in August [address] Lee. She was guaiac positive in the ER. Her vital signs have been stable and her hemoglobin is actually stable as well. The patient has been referred for further management and investigation. We will plan the followin. Continue to trend troponins. We will start Protonix IV 40 mg daily. 2. Provide gentle hydration. 3. Referral to Gastroenterology. 4. PEG tube in place. Consultation placed to dietitian with plans to resume PEG tube feedings. 5. For hypertension, we will resume home medications once reconciled. 6. Seizure disorder. Resume Keppra once verified. 7. Deep venous thrombosis prophylaxis. Mechanical SCDs. 8. Code status, full. Would benefit from Palliative Care consult for discussion of goals of care and perhaps advanced directives. The patient's case will be discussed with attending for further recommendations. Job ID: [id number]
[2018-11-01] MEDS: Amiodarone 200 MG TAB PO SCH (09:05)
[2018-11-01] MEDS: levETIRAcetam 500 mg/5 ml Oral Solution PER TUBE SCH ×2 (09:05→20:28)
[2018-11-01] MEDS: Losartan 25 MG TAB PO SCH (09:05)
[2018-11-01] MEDS: Escitalopram Oxalate 10 mg Tablet PER TUBE SCH (09:05)
[2018-11-01] MEDS: Metoprolol Tartrate 25 MG TAB PER TUBE SCH ×2 (09:05→20:40)
[2018-11-01] MEDS: Atorvastatin Calcium 40 MG TAB PER TUBE SCH (09:05)
[2018-11-01] MEDS: Hydrochlorothiazide 25 MG TAB PO SCH (09:05)
[2018-11-01 09:06] LABS: Hemoglobin 11.6 g/dL (12.0-16.0)
[2018-11-01] MEDS: Pantoprazole 40 MG VIAL IVP SCH (09:06)
[2018-11-01] MEDS: Sodium Chloride 0.9% 1,000 ML IV SCH (10:50)
[2018-11-01] MEDS: Pregabalin 25 MG CAP PER TUBE SCH ×2 (12:00→12:30)
--- NOTE | 2018-11-01 17:08 | CON ---
DATE OF CONSULTATION: 11/01/2018 REQUESTING PHYSICIAN: Vale Parker MD REASON FOR CONSULTATION: Possible melena. HISTORY OF PRESENT ILLNESS: Verenice Contreras is an 83-year-old woman, who is status post CVA back in 2013 with residual left-sided paralysis, dysphagia, aphasia, and PEG tube placement since August 2013. She had been on anticoagulation until this past August. She has had several episodes of upper gastrointestinal bleeding over the summer. She was evaluated by my colleague, Dr. Lee in August. EGD at that time demonstrated a hemoclip in place on a shallow erosion in the duodenum with no active bleeding at that time. The PEG tube site looked good. She had some barotrauma to the stomach just with air insufflation. He had recommended anticoagulation be discontinued and it was. The patient's daughter brought her in last night reporting two days of dark tarry stools. She says the stools have been normal for the past couple of days. There is no red blood in the stool. There has been no vomiting. No indication of abdominal pain or nausea. The patient herself cannot give any history. Initial labs demonstrated hemoglobin 10.8, which is at or above her baseline and that is actually up to 11.6 on its own this morning. BUN is low at 11. Other labs are unremarkable. She has remained hemodynamically stable. PAST MEDICAL HISTORY: CVA with left-sided paralysis, dysphagia secondary to CVA, aphasia secondary to CVA, PEG tube placement in August 2013, urinary tract infection with encephalopathy, hypertension, hyperlipidemia, seizures, and erosive duodenitis in August 2018. ALLERGIES: NO KNOWN DRUG ALLERGIES. OUTPATIENT MEDICATIONS: 1. Amitriptyline. 2. Escitalopram. 3. Metoprolol. 4. MiraLAX. 5. Potassium chloride. 6. Lyrica. 7. Hydrochlorothiazide. 8. Losartan. 9. Keppra. 10. Amiodarone. 11. Lipitor. 12. Aspirin. 13. Nexium. SOCIAL HISTORY: The patient lives at home with a caregiver. No alcohol, smoking, or drug use. FAMILY HISTORY: Noncontributory. PHYSICAL EXAMINATION: VITAL SIGNS: Temperature 98.0, pulse 66, blood pressure 154/74, and 92% oxygen saturation on room air. GENERAL: An 83-year-old woman, lying in bed comfortably, in no distress. MENTAL: Unable to converse with the patient due to expressive aphasia. She does not follow commands. SKIN: No jaundice. No rashes were palpable. HEENT: Eyes, no scleral icterus. Extraocular movements intact. ENT, mucous membranes moist. No oral lesions. LYMPH: No submandibular or supraclavicular lymphadenopathy. THYROID: Nontender to palpation. HEART: She has a loud systolic murmur. Regular rhythm. LUNGS: Clear to auscultation bilaterally. ABDOMEN: Bowel sounds present. Soft and nontender to palpation throughout. PEG tube is in place. The PEG site looks good. EXTREMITIES: No peripheral edema. VESSELS: Radial pulses 2+ bilaterally. NEURO: She has left-sided hemiparesis and expressive aphasia. LABORATORY STUDIES: Hemoglobin 11.6 up from 10.8 on admission without any transfusion, WBC 6.5, platelets 180, and MCV 76. Sodium 138, potassium 5.0, BUN 11, creatinine 0.71, glucose 80, total bilirubin 0.3, alkaline phosphatase 75, AST 21, ALT 16, and albumin 3.3. ASSESSMENT AND PLAN: 1. Concern for possible melena. 2. History of duodenitis. 3. History of percutaneous endoscopic gastrostomy tube placement. There was concern for possible melenic stools over the past couple of days. However, the patient's hemoglobin is at or above baseline and trended up since admission yesterday without any transfusion. I see no clear evidence of any significant gastrointestinal bleeding. She was taken off her anticoagulation a couple of months ago. I do not believe endoscopic investigation is likely demonstrate any new significant findings or intervenable lesions. The patient should remain on Nexium. We will not plan for any esophagogastroduodenoscopy. I discussed this in detail with the daughter, who is in agreement. I think the patient's tube feeds could be continued and she could potentially be discharged from the hospital. I would recommend that her primary provider recheck her H and H next week to make sure no significant decline. GI will sign off. Please call anytime with questions or concerns. Job ID: [id number]
--- NOTE | 2018-11-01 17:10 | PDOC.HOSPP ---
- Subjective Encounter Date: 11/01/18 Encounter Time: 10:00 Subjective: pt up in bed non verbal, daughter at bedside updated - Objective Vital Signs & Weight: Vital Signs (12 hours) Temp Pulse Resp BP Pulse Ox 11/01/18 16:39 97.6 F 75 18 137/83 11/01/18 12:00 98.0 F 66 18 154/74 H 92 L 11/01/18 08:00 98.4 F 76 16 147/67 H 96 Weight Admit Weight 164 lb Weight 164 lb I&O: 10/31/18 11/01/18 11/02/18 06:59 06:59 06:59 Intake Total 1150 Output Total 30 Balance 1120 Result Diagrams: 11/01/18 08:59 11/01/18 03:46 Hospitalist ROS - Review of Systems Other: unable to obtain - Medication Medications: Active Medications Generic Name Dose Route Start Last Admin Trade Name Freq PRN Reason Stop Dose Admin Amiodarone HCl 400 mg 11/01/18 09:00 11/01/18 09:05 Cordarone PO 400 mg DAILY JOCELINE Administration Atorvastatin Calcium 40 mg 11/01/18 09:00 11/01/18 09:05 Lipitor PER TUBE 40 mg DAILY JOCELINE Administration Escitalopram Oxalate 10 mg 11/01/18 09:00 11/01/18 09:05 Lexapro PER TUBE 10 mg DAILY JOCELINE Administration Hydrochlorothiazide 25 mg 11/01/18 09:00 11/01/18 09:05 Hydrochlorothiazide PO 25 mg DAILY JOCELINE Administration Sodium Chloride 1,000 mls @ 50 mls/hr 11/01/18 09:30 11/01/18 10:50 Normal Saline 0.9% IV 1,000 mls .Q20H JOCELINE Administration Levetiracetam 100 mg 11/01/18 09:00 11/01/18 09:05 Keppra Oral Solution PER TUBE 100 mg BID JOCELINE Administration Losartan Potassium 100 mg 11/01/18 09:00 11/01/18 09:05 Cozaar PO 100 mg DAILY JOCELINE Administration Metoprolol Tartrate 50 mg 11/01/18 09:00 11/01/18 09:05 Lopressor PER TUBE 50 mg BID JOCELINE Administration Pantoprazole Sodium 40 mg 11/01/18 09:00 11/01/18 09:06 Protonix IVP 40 mg DAILY JOCELINE Administration - Exam Neck: negative: supple, symmetric, no JVD, no thyromegaly, no lymphadenopathy, no carotid bruit, JVD Heart: negative: RRR, no murmur, no gallops, no rubs, normal peripheral pulses, irregular, diminshed peripheral pulses, murmur present, II/IV, III/IV Respiratory: negative: CTAB, no wheezes, no rales, no ronchi, normal chest expansion, no tachypnea, normal percussion, rales, rhonchi, tachypneic, wheezes Gastrointestinal: negative: soft, non-tender, non-distended, normal bowel sounds , no palpable masses, no hepatomegaly, no splenomegaly, no bruit, no guarding, no rigidity, tender to palpation, distended, diminished bowl sounds, voluntary guarding Hosp A/P (1) GI bleed Code(s): K92.2 - GASTROINTESTINAL HEMORRHAGE, UNSPECIFIED Status: Acute (2) Anxiety and depression Code(s): F41.8 - OTHER SPECIFIED ANXIETY DISORDERS Status: Chronic (3) Hemiparesis and other late effects of cerebrovascular accident Code(s): I69.359 - HEMIPLGA FOLLOWING CEREBRAL INFARCTION AFFECTING UNSP SIDE; I69.398 - OTHER SEQUELAE OF CEREBRAL INFARCTION Status: Chronic (4) Hypertension Code(s): I10 - ESSENTIAL (PRIMARY) HYPERTENSION Status: Chronic (5) Obesity (BMI 30.0-34.9) Code(s): E66.9 - OBESITY, UNSPECIFIED Status: Chronic - Plan pt's hh is stable, gi has been consulted. will start her on iv fluids. she is on ppi.
[2018-11-01] MEDS ORDERED: Pregabalin 25 MG CAP PER TUBE SCH (21:00)
[2018-11-01] MEDS ORDERED: Amitriptyline HCl 25 MG TAB PER TUBE SCH (21:00)
[2018-11-01] MEDS ORDERED: Sodium Bicarbonate Tab 325 MG TAB PER TUBE PRN (22:01)
[2018-11-01] MEDS ORDERED: Pancrelipase DR 12000 1 CAP FS PRN (22:01)
[2018-11-02] MEDS: Sodium Chloride 0.9% 1,000 ML IV SCH (05:39)
[2018-11-02] MEDS: Escitalopram Oxalate 10 mg Tablet PER TUBE SCH (08:24)
[2018-11-02] MEDS: Amiodarone 200 MG TAB PO SCH (08:24)
[2018-11-02] MEDS: Atorvastatin Calcium 40 MG TAB PER TUBE SCH (08:24)
[2018-11-02] MEDS: Metoprolol Tartrate 25 MG TAB PER TUBE SCH (08:24)
[2018-11-02] MEDS: levETIRAcetam 500 mg/5 ml Oral Solution PER TUBE SCH (08:25)
[2018-11-02] MEDS: Losartan 25 MG TAB PO SCH (08:25)
[2018-11-02] MEDS: Hydrochlorothiazide 25 MG TAB PO SCH (08:25)
[2018-11-02] MEDS: Pantoprazole 40 MG VIAL IVP SCH (08:37)
[2018-11-02 08:48] VITALS: BP 118/52; TEMP 97.8
[2018-11-02 12:56] LABS: Hemoglobin 11.5 g/dL (12.0-16.0); Mean Corpuscular HGB CONC 29.9 g/dL (32.0-36.0); Mean Corpuscular Hemoglobin 23.8 pg (27.0-31.0); Mean Corpuscular Volume 79.3 fL (78.0-98.0); Mean Platelet Volume 11.3 fL (7.4-10.4); Platelet Count 199 thou/uL (130-400); RBC Distribution Width 18.1 % (11.5-14.5); Red Blood Cell (RBC) Count 4.84 mill/uL (4.20-5.40); White Blood Cell (WBC) Count 4.4 thou/uL (4.8-10.8)
[2018-11-02 13:15] LABS: Anion Gap 11 mmol/L (10-20); BUN (Urea Nitrogen) 8 mg/dL (9.8-20.1); Calc. Creatinine Clearance 70 mL/min (70-130); Carbon Dioxide 23 mmol/L (23-31); Chloride 106 mmol/L (98-107); Estimated GFR-MDRD Greater than 90; Glucose 95 mg/dL (83-110); Potassium 3.6 mmol/L (3.5-5.1); Sodium 136 mmol/L (136-145)
[2018-11-02 13:24] LABS: Anisocytosis SLIGHT = 6-15 cells (100X) (0-5/hpf); Eosinophils 1 % (0-10); Hypochromia SLIGHT = 6-15 cells (100X) (0-5/hpf); Lymphocytes 34 % (21-51); MDiff Complete? YES; Monocytes 8 % (0-10); Neutrophil 56 % (42-75); Ovalocytes SLIGHT = 2-5 cells (100X) (0-1/hpf); Platelet Morphology Comment Appears Adequate; Polychromasia SLIGHT = 2-3 cells (100X) (0-2/hpf)
--- NOTE | 2018-11-02 22:39 | DIS ---
DATE OF ADMISSION: 11/01/2018 DATE OF DISCHARGE: 11/02/2018 DISCHARGE DIAGNOSES: 1. Gastrointestinal bleed. 2. Anxiety and depression. 3. Hemiparesis due to previous cerebrovascular accident. 4. Hypertension. 5. Obesity. HOSPITAL COURSE: The patient is an 83-year-old female, who is bed-bound, who presented to the hospital after the daughter noticed that patient had 2 dark stools. There were no bright blood noted, it was just dark black stool. Hemoccult was positive. The patient has had a history of GI bleed in the past. Her H and H continued to be stable. She never required a blood transfusion. She was seen by GI and recommended no intervention and to continue the Nexium. The patient was watched overnight. Her H and H continued to be stable. She was discharged home. This was updated with the patient's daughter, who is at the bedside. HOME MEDICATIONS: Her home medications will be as of the following; 1. Amiodarone 400 mg daily. 2. Amitriptyline 25 mg at bedtime. 3. Aspirin 81 mg daily. 4. Atorvastatin 40 mg daily. 5. Lexapro 10 mg daily. 6. Nexium 40 mg daily. 7. Hydrochlorothiazide 25 daily. 8. Losartan 100 mg daily. 9. Metoprolol 50 mg twice a day. 10. Potassium 20 mEq p.o. daily. 11. Lyrica 25 mg daily. 12. Keppra 100 mg b.i.d. PHYSICAL EXAMINATION: VITAL SIGNS: Temperature 97.8, pulse 63, respiratory rate 16, O2 saturation 97% on room air, blood pressure 152/74. GENERAL: She is awake and does not follow any commands, just smiled. CV: S1 and S2 present. No murmurs, rubs, or gallops. ABDOMEN: Soft and nontender. PEG tube is in place. No residuals noted per nursing. LUNGS: Clear to auscultation. No rhonchi or wheezes noted. Again, the patient will be discharged home. She will follow up with her primary and I have given her a slip to check her H and H next week and results to be faxed to her primary. The patient's daughter was notified that if anything changes, to bring her back into the hospital. Job ID: [id number]
== END 2018-11-02 15:17 | disposition home or self-care (01) ==
LOC: ERS 18:22 → SURG B 11-01 00:52
PROVIDERS: ADMIT Hospitalist; ATTEND Hospitalist
DX: K92.1 Melena (principal); F41.9 Anxiety disorder, unspecified; F32.9 Major depressive disorder, single episode, unspecified; I69.354 Hemiplegia and hemiparesis following cerebral infarction affecting left non-dominant side; I69.320 Aphasia following cerebral infarction; I69.391 Dysphagia following cerebral infarction; R13.10 Dysphagia, unspecified; I10 Essential (primary) hypertension; E78.5 Hyperlipidemia, unspecified; E66.9 Obesity, unspecified; Z68.28 Body mass index [BMI] 28.0-28.9, adult; Z79.82 Long term (current) use of aspirin; Z79.899 Other long term (current) drug therapy; Z93.1 Gastrostomy status; Z74.01 Bed confinement status
CPT/HCPCS: 80048 ×2; 80053; 82274; 85014 ×2; 85018 ×2; 85025 ×3; 86850 ×2; 86900; 86901; 96361 ×2; 96374; 96376 ×2; 99285; G0378 ×4; 36415; C9113

== ENCOUNTER 2019-05-05 08:28 | Inpatient (IN) | payer MEDICARE ==
[2019-05-05 09:42] LABS: ALV-art Gradient 43.005 (0-20); Actual Bicarbonate (HCO3a) 17.4 mEq/L (22-28); Analyzer IN Cardio ER; Base Excess (BEa) -8.1 mEq/L (-2.0 to +3.0); CO2 Tension 35.3 mmHg (35.0-45.0); Calcium, Ionized 1.26 mmol/L (1.12-1.30); Carboxyhemoglobin (COHb) 0.3 gm% (0.0-3.0); Hemoglobin (Hb) 9.9 g/dL (12.0-16.0); O2 Tension (PaO2) 62.6 mmHg (> 60.0); Potassium - ABG Lab 3.62 mmol/L (3.70-5.30); Puncture Site LRA; pH, Arterial 7.31 (7.35-7.45)
[2019-05-05] MEDS ORDERED: Acetaminophen 325 MG TAB PO PRN (10:04)
[2019-05-05] MEDS ORDERED: Ondansetron PF 4 MG/2 ML Vial IVP PRN (10:04)
[2019-05-05] MEDS ORDERED: Acetaminophen 650 MG Suppository PR PRN (10:04)
[2019-05-05 10:08] LABS: ALT (SGPT) 53 U/L (8-55); AST (SGOT) 71 U/L (5-34); Albumin 2.5 g/dL (3.4-4.8); Alkaline Phosphatase 57 U/L (40-110); Anion Gap 17 mmol/L (10-20); BUN (Urea Nitrogen) 20 mg/dL (9.8-20.1); Bilirubin, Total 0.4 mg/dL (0.2-1.2); Calc. Creatinine Clearance 0 mL/min (70-130); Calcium 9.3 mg/dL (7.8-10.44); Carbon Dioxide 19 mmol/L (23-31); Chloride 106 mmol/L (98-107); Estimated GFR-MDRD 69; Globulin 3.8 g/dL (2.4-3.5); Glucose 146 mg/dL (83-110); Potassium 4.6 mmol/L (3.5-5.1); Protein, Total 6.3 g/dL (6.0-8.3); Sodium 137 mmol/L (136-145)
[2019-05-05 10:23] LABS: Hemoglobin 10.1 g/dL (12.0-16.0); Mean Corpuscular HGB CONC 29.2 g/dL (32.0-36.0); Mean Corpuscular Hemoglobin 20.9 pg (27.0-31.0); Mean Corpuscular Volume 71.6 fL (78.0-98.0); Mean Platelet Volume 7.5 fL (7.4-10.4); Platelet Count 265 thou/uL (130-400); RBC Distribution Width 20.3 % (11.5-14.5); Red Blood Cell (RBC) Count 4.84 mill/uL (4.20-5.40); White Blood Cell (WBC) Count 14.2 thou/uL (4.8-10.8)
[2019-05-05 10:24] LABS: Band 26 % (5-11); Elliptocytes SLIGHT = 2-5 cells (100X) (0-1/hpf); Hypochromia SLIGHT = 6-15 cells (100X) (0-5/hpf); Large Platelets SLIGHT; Lymphocytes 15 % (21-51); MDiff Complete? YES; Microcytosis SLIGHT = 6-15 cells (100X) (0-5/hpf); Monocytes 8 % (0-10); Neutrophil 51 % (42-75); Platelet Morphology Comment Appears Adequate
[2019-05-05] MEDS ORDERED: Succinylcholine Chloride 20 MG/ML 10 ml SYRINGE FS ONE (11:02)
[2019-05-05] MEDS ORDERED: Norepinephrine 8 MG/0.9% NS 250 ML ONE (11:04)
[2019-05-05] MEDS ORDERED: Midazolam HCl 5 mg/ml Vial ONE (11:10)
[2019-05-05 11:27] LABS: Actual Bicarbonate (HCO3a) 16.8 mEq/L (22-28); Analyzer IN Cardio ER; Base Excess (BEa) -8.2 mEq/L (-2.0 to +3.0); CO2 Tension 32.4 mmHg (35.0-45.0); Carboxyhemoglobin (COHb) 0.3 gm% (0.0-3.0); Hemoglobin (Hb) 10.1 g/dL (12.0-16.0); O2 Tension (PaO2) 45.5 mmHg (> 60.0); Potassium - ABG Lab 4.01 mmol/L (3.70-5.30); pH, Arterial 7.33 (7.35-7.45)
[2019-05-05 11:28] LABS: Puncture Site RRA
[2019-05-05] MEDS ORDERED: Fentanyl 100 MCG/2 ML VIAL ONE ×2 (11:43→11:53)
--- NOTE | 2019-05-05 11:49 | RAD ---
CHEST 1 VIEW: Date: 05/05/2019 HISTORY: Cough. Post intubation and line placement. FINDINGS: NG tube and right jugulovenous catheters are in place. Endotracheal tube is in place with the tip sandy roximately 1.0 cm from the jorge, which could probably be somewhat more optimally positioned by pull ing it back. Stable abnormal opacity overlying the left suprahilar region. Blunting in the left costo phrenic angle with old granulomatous disease and some mild left hemidiaphragm elevation. Stable linea r parenchymal change in the right mid lung zone. IMPRESSION: Overall stable findings in the chest. Placement of NG tube, endotracheal tube, and right jugulovenous catheters with the endotracheal tube being approximately 1.0 cm from the tip of the jorge. POS: [facility]
[2019-05-05 12:41] LABS: Lactic Acid 3.9 mmol/L (0.5-2.2)
[2019-05-05] MEDS ORDERED: FLU VACC TS2019-20(65YR UP)/PF 180 MCG/0.5 ML SYRINGE IM ONE (13:45)
[2019-05-05] MEDS ORDERED: Norepinephrine 8 MG/0.9% NS 250 ML IVPB SCH (14:59)
--- NOTE | 2019-05-05 16:17 | HP ---
CHIEF COMPLAINT: Shortness of breath and nausea and vomiting. HISTORY OF PRESENT ILLNESS: An 83-year-old female with history of CVA since 2012, PEG tube dependant for her p.o. intake, and hypertension, was not feeling well yesterday. Per daughter, she had some emesis. No recent history of fever or chills. However, her daughter and her son were not feeling well at home, flu- like symptoms. She was at [place], where she was diagnosed with septic shock secondary to pneumonia with a lactic acid level of 7 and right lower lobe pneumonia. Her pH there was 7.395 with a pCO2 of 33 and PO2 of 103. Her white count was 13.8, hemoglobin 10. She received vancomycin and cefepime and 30 mL/kg of hydration started per sepsis protocol. Initially, her blood pressure there at [place] was systolic in 70s and improved to 134, and in the ER, here at [facility], it was 127/82 with pulse of 90. She was breathing hard at 26 breaths per minute, and her temp was 98.3. Her repeat ABG has been done. Later in the ER, she was intubated for acute hypoxic respiratory failure. I have seen her shortly after that. Her daughter at bedside, some of the information gathered from her. REVIEW OF SYSTEMS: Complete review of systems not obtainable. But for the most part, the patient is bedridden and PEG tube dependent. ALLERGIES: SHE HAS NO KNOWN DRUG ALLERGY. PAST MEDICAL HISTORY: 1. Hemorrhagic CVA with a residual left side paralysis. 2. Hypertension. 3. Seizure. 4. Hyperlipidemia. PAST SURGICAL HISTORY: PEG tube placement in 2013, post CVA, EGD, status post ablation with bleeding site. MEDICATIONS: 1. Amitriptyline. 2. Celexa. 3. Metoprolol tartrate. 4. Potassium chloride. 5. Lyrica. 6. Hydrochlorothiazide. 7. Losartan. 8. Keppra. 9. Amiodarone. 10. Lipitor. 11. Aspirin. 12. Nexium. 13. MiraLAX. SOCIAL HISTORY: The patient lives with her daughter. No smoking or alcohol. FAMILY HISTORY: Significant for diabetes. PHYSICAL EXAMINATION: GENERAL: She is intubated. She is on Levophed at 7 mcg. VITAL SIGNS: Her blood pressure is improved 121/49, MAP of 73, high FiO2 of 50 , and her pulse is at 88. The patient did not require any sedation. Her blood pressure is improving. I had a brief discussion with the RN. CARDIOVASCULAR: Regular rate and rhythm without murmurs. LUNGS: Anterior auscultation did not reveal any adventitious lung sounds. ABDOMEN: Soft and nontender. PEG tube in place. EXTREMITIES: Without any pitting edema. LABORATORY DATA: Her chest x-ray, right lower lobe pneumonia. IMPRESSION AND PLAN: An 83-year-old female with a left hemiparesis, nonverbal, bedridden, presenting with; 1. Septic shock secondary to pneumonia. 2. Right lower lobe pneumonia. 3. History of cerebrovascular accident with left hemiparesis and aphasia. 4. PEG tube dependant. 5. Leukocytosis. 6. Metabolic acidosis secondary to sepsis. 7. Hypotension again secondary to sepsis requiring vasopressor briefly. 8. We will follow the blood cultures. We will restart the vancomycin and cefepime. 9. Respiratory failure due to hypoxia as well as pneumonia. Pneumonia clinically appears due to aspiration; however, we will screen for flu as well. 10. Follow the blood culture results. 11. Left hemiparesis. The patient on aspirin and Lipitor, which we will continue that. 12. History of seizure. Continue with Rafaela. 13. Hypertension. The patient is on metoprolol tartrate as well as losartan. She is also on amiodarone. We will continue the same. 14. Rest of the management based on clinical course. She is currently full code. We will consult the palliative as well to determine the goal of care as the patient is mostly bed-bound with the left hemiparesis and aphasia. So, the goal of care has to be redefined. Job ID: [id number] [facility]
[2019-05-05] MEDS: Sodium Chloride 0.9% 1,000 ML IV SCH ×2 (16:18→22:48)
[2019-05-05] MEDS: Vancomycin 1 GM in Premix Bag 1 BAG IVPB SCH (16:29)
--- NOTE | 2019-05-05 18:50 | CON ---
DATE OF CONSULTATION: 05/05/2019 HISTORY OF PRESENT ILLNESS: Ms. Contreras is an 83-year-old female, who apparently is bed ridden, living at home after a stroke. She has a PEG in place. She presented with a cough and tachypnea. She was transferred from [place] to [facility]. Because of her tachypnea, apparently she was intubated. There is no family in the room when I evaluated her to provide a history. She is in the hospital in October of 2018 with black stools. PAST MEDICAL HISTORY: 1. Remarkable for GI bleed in August. 2. History of PEG. 3. History of left hemiparesis and aphasia after a stroke. 4. History of anticoagulation prior to her GI bleed. 5. History of hypertension. 6. History of seizures. 7. History of TIA. 8. History of lipid disorder. SOCIAL HISTORY: Nonsmoker and nondrinker. MEDICATIONS: Prior to admission have been reviewed. REVIEW OF SYSTEMS: Not obtainable. PHYSICAL EXAMINATION: GENERAL: She is intubated. VITAL SIGNS: Blood pressure is 121/57, heart rate is in the 90s, respiratory rates in the teens. HEENT: Pupils react. Sclerae are anicteric. NECK: Without lymphadenopathy. LUNGS: Remarkable for distant breath sounds. HEART: Regular rhythm. S1, S2 are normal. ABDOMEN: Soft and nontender. EXTREMITIES: Without clubbing, cyanosis, or edema. LABORATORY DATA: White count 14.2, hemoglobin 10.1, platelets 265. Sodium 137, potassium 4.6, chloride 106, bicarb 19, BUN 20, creatinine 0.94, pH 7.33, CO2 of 32, PO2 of 45 at 11 o'clock this morning. Chest radiograph shows a hazy small infiltrate in her right base. IMPRESSION: 1. Respiratory failure associated with deconditioning and aspiration pneumonia. 2. Chronic bedridden state, status post hemorrhagic cerebrovascular accident with bilateral middle cerebral artery infarctions seen on MRI in September of last year. 3. History of gastrointestinal bleed. 4. Respiratory failure leading to intubation. 5. History of pneumonia in 2018. We will follow the other physicians caring for her. Broad antimicrobial therapy has been started. CRITICAL CARE TIME: 30 minutes. Job ID: [id number] [facility]
[2019-05-05] MEDS: Cefepime 1 GM in Sodium Chloride 0.9% 100 ML IVPB SCH (21:01)
[2019-05-05] MEDS: Famotidine/PF 20 mg/2ml Vial SLOW IVP SCH (21:02)
[2019-05-05] MEDS: fentaNYL Citrate/PF 2,000 MCG in Sodium Chloride 0.9% 60 ML IV SCH (21:02)
[2019-05-05] MEDS: Metoprolol Tartrate 50 MG TAB PER TUBE SCH (21:13)
[2019-05-05] MEDS: levETIRAcetam 500 mg/5 ml Oral Solution PER TUBE SCH (21:16)
[2019-05-06] MEDS: Sodium Chloride 0.9% 1,000 ML IV SCH ×3 (05:39→20:40)
[2019-05-06 07:35] LABS: Base Excess (BEa) -3.5 mEq/L (-2.0 to +3.0); Hemoglobin (Hb) 8.9 g/dL (12.0-16.0); O2 Tension (PaO2) 62.5 mmHg (> 60.0)
[2019-05-06 07:36] LABS: Calcium, Ionized 1.36 mmol/L (1.12-1.30); Potassium - ABG Lab 3.47 mmol/L (3.70-5.30); Puncture Site RR
[2019-05-06] MEDS: Amiodarone 200 MG TAB PO SCH (08:41)
[2019-05-06] MEDS: Aspirin Chewable 81 MG TAB PER TUBE SCH (08:41)
[2019-05-06] MEDS: Hydrochlorothiazide 25 MG TAB PO SCH (08:41)
[2019-05-06] MEDS: Cefepime 1 GM in Sodium Chloride 0.9% 100 ML IVPB SCH ×2 (08:41→20:41)
[2019-05-06] MEDS: Escitalopram Oxalate 10 mg Tablet PER TUBE SCH (08:42)
[2019-05-06] MEDS: Famotidine/PF 20 mg/2ml Vial SLOW IVP SCH ×2 (08:42→20:41)
[2019-05-06] MEDS: Losartan 25 MG TAB PO SCH (08:44)
[2019-05-06] MEDS: Metoprolol Tartrate 50 MG TAB PER TUBE SCH ×2 (08:45→20:27)
[2019-05-06] MEDS: levETIRAcetam 500 mg/5 ml Oral Solution PER TUBE SCH ×2 (08:49→20:44)
[2019-05-06] MEDS ORDERED: Aspirin 325 MG TAB PER TUBE SCH (09:00)
--- NOTE | 2019-05-06 09:42 | PRG ---
DATE OF SERVICE: 05/06/2019 SUBJECTIVE: Ms. Contreras is clinically unchanged. She opens her eyes. She is on a low-dose fentanyl. OBJECTIVE: VITAL SIGNS: Heart rate 88, blood pressure 116/52, respiratory rates in the teens, minute volume was about 8 L a minute. LUNGS: Clear. HEART: Regular rhythm. ABDOMEN: Soft. EXTREMITIES: Without asymmetry. LABORATORY DATA: There is no lab ordered today. Blood gas shows a pH of 7.4, CO2 of 35, PO2 of 62. Sodium 140, potassium 3.47, chloride 113, bicarb 1.36. IMPRESSION: Respiratory failure associated with deconditioning, retained secretions. She also probably has an aspiration related pneumonia. We will repeat radiograph in the morning. Her prognosis is guarded. CRITICAL CARE TIME: 30 minutes. Job ID: [id number]
[2019-05-06] MEDS: Vancomycin 1 GM in Premix Bag 1 BAG IVPB SCH (15:08)
--- NOTE | 2019-05-06 16:32 | PDOC.FMACP ---
Advance Care Planning - Problem (1) Aspiration pneumonia Status: Acute Code(s): J69.0 - PNEUMONITIS DUE TO INHALATION OF FOOD AND VOMIT (2) Encephalopathy acute Status: Acute Code(s): G93.40 - ENCEPHALOPATHY, UNSPECIFIED (3) Palliative care encounter Status: Acute Code(s): Z51.5 - ENCOUNTER FOR PALLIATIVE CARE (4) HTN (hypertension) Status: Chronic Code(s): I10 - ESSENTIAL (PRIMARY) HYPERTENSION (5) Hemiparesis and other late effects of cerebrovascular accident Status: Chronic Code(s): I69.359 - HEMIPLGA FOLLOWING CEREBRAL INFARCTION AFFECTING UNSP SIDE; I69.398 - OTHER SEQUELAE OF CEREBRAL INFARCTION (6) On tube feeding diet Status: Chronic Code(s): Z78.9 - OTHER SPECIFIED HEALTH STATUS (7) Seizure disorder as sequela of cerebrovascular accident Status: Chronic Code(s): I69.398 - OTHER SEQUELAE OF CEREBRAL INFARCTION; G40.909 - EPILEPSY, UNSP, NOT INTRACTABLE, WITHOUT STATUS EPILEPTICUS (8) Acute respiratory failure with hypoxemia Status: Resolved Code(s): J96.01 - ACUTE RESPIRATORY FAILURE WITH HYPOXIA - Note Participants: family Summary: Advanced Care Planning was discussed. The diagnosis, prognosis and goals of care were discussed. Appropriate forms and documentation to accomplish the goals of care were discussed. All questions were answered. The Palliative Care Team will be engaged to assist with completion of any outstanding forms that are needed. Alysia Real [phone] met to discuss her mother/ patient lives with her and she and her brother are primary caregivers of Ms Contreras. Ms Real confirmed that she has two other siblings, three children of Ms Contreras, and all are equal decision makers. Discussed resuscitation options and Ms Real will discuss transitioning her mother to chemical only in relation to resuscitation. In addressing Goal of care it is for her mother to be successfully extubated and go back to the private home setting. Currently with home health. Introduced again option of hospice care secondary to patient continued trajectory of decline with multiple morbidities. Patient bedbound, aphagic, nutritional support via PEG, total assist with ADL's and increase in confusion. Ms Real to discuss goal of care with consideration of comfort verses aggressive measures in the future to prevent suffering and manage symptoms. Will readdress resuscitation. Time Spent (mins): 60 (Meeting with daughter at patient bedside)
--- NOTE | 2019-05-06 16:33 | PDOC.HOSPP ---
- Subjective Encounter Date: 05/06/19 Encounter Time: 12:10 Subjective: talk to [facility] dtr at length reg.. code status, and pts overall prognosis. her urine output still minimal, on pressor still. pt is awake. moving her arm spontaneously. - Objective Vital Signs & Weight: Vital Signs (12 hours) Temp Pulse Resp BP Pulse Ox 05/06/19 16:00 98.8 F 16 05/06/19 15:35 75 112/60 05/06/19 14:00 16 05/06/19 13:24 75 110/49 L 05/06/19 12:00 98.5 F 16 05/06/19 10:34 81 111/53 L 05/06/19 10:00 16 05/06/19 08:00 16 100 05/06/19 07:26 88 116/52 L 05/06/19 07:00 98.6 F 05/06/19 06:00 16 Weight Admit Weight 154 lb 15.68 oz Weight 154 lb 15.759 oz Most Recent Monitor Data Heart Rate from ECG 75 NIBP 107/47 NIBP BP-Mean 67 Respiration from ECG 16 SpO2 100 I&O: 05/05/19 05/06/19 05/07/19 06:59 06:59 06:59 Intake Total 2348.4 50 Output Total 330 260 Balance 2018.4 -210 Result Diagrams: 05/05/19 08:42 05/05/19 08:42 Hospitalist ROS - Medication Medications: Active Medications Generic Name Dose Route Start Last Admin Trade Name Freq PRN Reason Stop Dose Admin Amiodarone HCl 400 mg 05/06/19 09:00 05/06/19 08:41 Cordarone PO 400 mg DAILY JOCELINE Administration Aspirin 81 mg 05/06/19 09:00 05/06/19 08:41 Aspirin Chewable PER TUBE 81 mg DAILY JOCELINE Administration Escitalopram Oxalate 10 mg 05/06/19 09:00 05/06/19 08:42 Lexapro PER TUBE 10 mg DAILY JOCELINE Administration Famotidine 20 mg 05/05/19 21:00 05/06/19 08:42 Pepcid SLOW IVP 20 mg Q12HR JOCELINE Administration Hydrochlorothiazide 25 mg 05/06/19 09:00 05/06/19 08:41 Hydrochlorothiazide PO 25 mg DAILY JOCELINE Administration Fentanyl Citrate 2,000 mcg/ 100 mls @ 0 mls/hr 05/05/19 11:29 05/05/19 21:02 Sodium Chloride IV 06/04/19 11:29 100 mls INF JOCELINE Administration Protocol Per Protocol Sodium Chloride 1,000 mls @ 125 mls/hr 05/05/19 15:00 05/06/19 14:26 Normal Saline 0.9% IV 1,000 mls .Q8H JOCELINE Administration Cefepime HCl 1 gm/ Sodium 100 mls @ 200 mls/hr 05/05/19 21:00 05/06/19 08:41 Chloride IVPB 100 mls Q12HR JOCELINE Administration Vancomycin HCl 1 gm/ Device 200 mls @ 200 mls/hr 05/05/19 16:00 05/06/19 15: 08 IVPB 200 mls 1600 JOCELINE Administration Levetiracetam 100 mg 05/05/19 21:00 05/06/19 08:49 Keppra Oral Solution PER TUBE 100 mg BID JOCELINE Administration Losartan Potassium 100 mg 05/06/19 09:00 05/06/19 08:44 Cozaar PO Not Given DAILY JOCELINE Metoprolol Tartrate 50 mg 05/05/19 21:00 05/06/19 08:45 Lopressor PER TUBE Not Given BID JOCELINE Sodium Chloride 10 ml 05/05/19 21:00 05/06/19 08:45 Flush - Normal Saline IVF 10 ml Q12HR JOCELINE Administration - Exam General Appearance: ill appearing General - other findings: intuabted no sedation Eye: PERRL ENT: normocephalic atraumatic Neck: supple Heart: RRR Respiratory: normal chest expansion, rales, rhonchi Gastrointestinal: soft, normal bowel sounds Gastrointestinal - other findings: peg tube stie looks ok Neurological: cranial nerve grossly intact Hosp A/P - Plan septic shock 2/2 asp pna requiring intubation and pressor sepsis w.. multi-organ failure ALEXIS Oliguria leukocytosis Metabolic acidosis -cw ivf and pressors --repeat bl charles, here for monitoring -cw vanc, cefepime palliative on board i d/w dtr reg code status she will d/w rest of the family and let us know. Poor prognosis.
[2019-05-06] MEDS: Atorvastatin Calcium 40 MG TAB PER TUBE SCH (20:41)
[2019-05-07 05:13] LABS: Anion Gap 8 mmol/L (10-20); BUN (Urea Nitrogen) 16 mg/dL (9.8-20.1); Calc. Creatinine Clearance 75 mL/min (70-130); Carbon Dioxide 20 mmol/L (23-31); Chloride 115 mmol/L (98-107); Estimated GFR-MDRD Greater than 90; Glucose 96 mg/dL (83-110); Potassium 3.1 mmol/L (3.5-5.1); Sodium 140 mmol/L (136-145)
[2019-05-07 05:18] LABS: Band 19 % (5-11); Hemoglobin 7.6 g/dL (12.0-16.0); Hypochromia SLIGHT = 6-15 cells (100X) (0-5/hpf); Lymphocytes 9 % (21-51); MDiff Complete? YES; Mean Corpuscular HGB CONC 29.9 g/dL (32.0-36.0); Mean Corpuscular Hemoglobin 21.4 pg (27.0-31.0); Mean Corpuscular Volume 71.6 fL (78.0-98.0); Mean Platelet Volume 6.8 fL (7.4-10.4); Monocytes 10 % (0-10); Neutrophil 62 % (42-75); Platelet Count 216 thou/uL (130-400); Platelet Morphology Comment Appears Adequate; RBC Distribution Width 19.7 % (11.5-14.5); Red Blood Cell (RBC) Count 3.53 mill/uL (4.20-5.40)
[2019-05-07] MEDS: Sodium Chloride 0.9% 1,000 ML IV SCH ×3 (05:57→19:30)
[2019-05-07 06:55] LABS: Actual Bicarbonate (HCO3a) 20.8 mEq/L (22-28); Base Excess (BEa) -3.3 mEq/L (-2.0 to +3.0); CO2 Tension 32.9 mmHg (35.0-45.0); Calcium, Ionized 1.33 mmol/L (1.12-1.30); Carboxyhemoglobin (COHb) 1.5 gm% (0.0-3.0); Hemoglobin (Hb) 7.5 g/dL (12.0-16.0); Potassium - ABG Lab 3.07 mmol/L (3.70-5.30); pH, Arterial 7.42 (7.35-7.45)
[2019-05-07] MEDS ORDERED: Fentanyl BOLUS 250 ML IVPB PRN (07:02)
[2019-05-07 07:20] LABS: O2 Tension (PaO2) 57.6 mmHg (> 60.0)
[2019-05-07 07:21] LABS: ALV-art Gradient 186.475 (0-20); Puncture Site RRA
--- NOTE | 2019-05-07 07:39 | RAD ---
PORTABLE FRONTAL CHEST RADIOGRAPH: DATE: 05/07/2019. COMPARISON: 05/05/2019. HISTORY: Ventilated patient. FINDINGS: Stable endotracheal tube, nasogastric tube, and right-sided vascular catheter. There is increased den sity in the perihilar region suggesting volume loss, vascular congestion, and/or nonspecific mild airspace disease. There is worsening aeration within the right lung base which may signify developing right basilar infiltrate or volume loss. There is partial consolidation/collapse of the left lower lobe with probable associated small left pleural effusion. Aeration within the left base has slightly worsened as well. IMPRESSION: Lines and tubes as detailed above. Nonspecific perihilar and bibasilar pleural and parenchymal opacit y, slightly worsened. Findings may be related to edema, infectious pneumonitis, and/or aspiration. Follow-up to resolution advised. Transcribed Date/Time: 05/07/2019 8:17 AM
[2019-05-07] MEDS: Cefepime 1 GM in Sodium Chloride 0.9% 100 ML IVPB SCH ×2 (08:26→20:26)
[2019-05-07] MEDS: levETIRAcetam 500 mg/5 ml Oral Solution PER TUBE SCH ×2 (08:27→20:29)
[2019-05-07] MEDS: Famotidine/PF 20 mg/2ml Vial SLOW IVP SCH ×2 (08:27→20:29)
[2019-05-07] MEDS: Aspirin Chewable 81 MG TAB PER TUBE SCH (08:27)
[2019-05-07] MEDS: Escitalopram Oxalate 10 mg Tablet PER TUBE SCH (08:28)
[2019-05-07] MEDS: Amiodarone 200 MG TAB PO SCH (08:28)
[2019-05-07] MEDS: Losartan 25 MG TAB PO SCH (08:28)
[2019-05-07] MEDS: Hydrochlorothiazide 25 MG TAB PO SCH (08:28)
[2019-05-07] MEDS: Metoprolol Tartrate 50 MG TAB PER TUBE SCH ×2 (08:29→20:29)
--- NOTE | 2019-05-07 13:20 | PDOC.HOSPP ---
- Subjective Encounter Date: 05/07/19 Encounter Time: 11:20 Subjective: d/w dtr at length, pt's BP holding up. - Objective Vital Signs & Weight: Vital Signs (12 hours) Temp Pulse Resp BP Pulse Ox 05/07/19 12:00 98.2 F 16 05/07/19 10:44 89 121/52 L 05/07/19 10:00 16 05/07/19 08:00 16 05/07/19 07:14 100 05/07/19 07:00 98.5 F 05/07/19 06:42 81 100/45 L 05/07/19 06:00 16 05/07/19 04:00 16 05/07/19 03:00 98.8 F 05/07/19 02:18 79 116/59 L 05/07/19 02:00 18 Weight Admit Weight 154 lb 15.68 oz Weight 156 lb 8.451 oz Most Recent Monitor Data Heart Rate from ECG 68 NIBP 119/54 NIBP BP-Mean 75 Respiration from ECG 18 SpO2 100 I&O: 05/06/19 05/07/19 05/08/19 06:59 06:59 06:59 Intake Total 2348.4 3186.3 0 Output Total 330 585 220 Balance 2018.4 2601.3 -220 Result Diagrams: 05/07/19 04:31 05/07/19 04:31 Hospitalist ROS - Medication Medications: Active Medications Generic Name Dose Route Start Last Admin Trade Name Freq PRN Reason Stop Dose Admin Amiodarone HCl 400 mg 05/06/19 09:00 05/07/19 08:28 Cordarone PO 400 mg DAILY JOCELINE Administration Aspirin 81 mg 05/06/19 09:00 05/07/19 08:27 Aspirin Chewable PER TUBE 81 mg DAILY JOCELINE Administration Atorvastatin Calcium 40 mg 05/06/19 21:00 05/06/19 20:41 Lipitor PER TUBE 40 mg HS JOCELINE Administration Escitalopram Oxalate 10 mg 05/06/19 09:00 05/07/19 08:28 Lexapro PER TUBE 10 mg DAILY JOCELINE Administration Famotidine 20 mg 05/05/19 21:00 05/07/19 08:27 Pepcid SLOW IVP 20 mg Q12HR JOCELINE Administration Hydrochlorothiazide 25 mg 05/06/19 09:00 05/07/19 08:28 Hydrochlorothiazide PO 25 mg DAILY JOCELINE Administration Fentanyl Citrate 2,000 mcg/ 100 mls @ 0 mls/hr 05/05/19 11:29 05/05/19 21:02 Sodium Chloride IV 06/04/19 11:29 100 mls INF JOCELINE Administration Protocol Per Protocol Sodium Chloride 1,000 mls @ 125 mls/hr 05/05/19 15:00 05/07/19 05:57 Normal Saline 0.9% IV 1,000 mls .Q8H JOCELINE Administration Cefepime HCl 1 gm/ Sodium 100 mls @ 200 mls/hr 05/05/19 21:00 05/07/19 08:26 Chloride IVPB 100 mls Q12HR JOCELINE Administration Vancomycin HCl 1 gm/ Device 200 mls @ 200 mls/hr 05/05/19 16:00 05/06/19 15: 08 IVPB 200 mls 1600 JOCELINE Administration Levetiracetam 100 mg 05/05/19 21:00 05/07/19 08:27 Keppra Oral Solution PER TUBE 100 mg BID JOCELINE Administration Losartan Potassium 100 mg 05/06/19 09:00 05/07/19 08:28 Cozaar PO 100 mg DAILY JOCELINE Administration Metoprolol Tartrate 50 mg 05/05/19 21:00 05/07/19 08:29 Lopressor PER TUBE Not Given BID JOCELINE Sodium Chloride 10 ml 05/05/19 21:00 05/07/19 08:29 Flush - Normal Saline IVF 10 ml Q12HR JOCELINE Administration - Exam General Appearance: NAD General - other findings: on vent Eye: PERRL ENT: normocephalic atraumatic Neck: supple Heart: RRR Respiratory: CTAB Gastrointestinal: soft, normal bowel sounds Extremities - other findings: dept edema on hands Hosp A/P - Plan septic shock 2/2 asp pna requiring intubation and pressor sepsis w.. multi-organ failure ALEXIS Oliguria leukocytosis Metabolic acidosis -cw ivf and pressors --repeat bl charles, here for monitoring -cw vanc, cefepime palliative on board i d/w dtr reg code status she will d/w rest of the family and let us know. Poor prognosis.
[2019-05-07] MEDS: Vancomycin HCl 1.25 GM in Sodium Chloride 0.9% 250 ML 250 ML IVPB SCH (16:54)
--- NOTE | 2019-05-07 17:54 | PRG ---
DATE OF SERVICE: 05/07/2019 SUBJECTIVE: Ms. Contreras remains mechanically ventilated. OBJECTIVE: VITAL SIGNS: Heart rates in the 60s, blood pressure 115/48, respiratory rate 16, oximetry is 100%. HEAD AND NECK: Unchanged. LUNGS: Clear anteriorly. HEART: Regular rhythm. ABDOMEN: Soft. EXTREMITIES: Without asymmetry or edema. NEURO: Unchanged. LABORATORY DATA: White count 9.0, hemoglobin 7.6, platelets 216,000. Sodium 140, potassium 3.1, chloride 115, bicarb 20, BUN 16, creatinine 0.65. PH 7.42, pCO2 of 32, pO2 of 57. DIAGNOSTIC DATA: Chest radiograph still shows patchy bilateral infiltrates. IMPRESSION AND PLAN: 1. Pneumonia, aspiration mediated. 2. History of cerebrovascular accident. 3. History of being basically bed ridden and inactive. 4. Cachexia. 5. Status post PEG. 6. Anemia, which may be related to 4-1/2 L positive fluid balance in the last few days. This will continue to be monitored. I had a meeting with the daughter and asked her to talk to her siblings about end of life issues. If we extubate Ms. Contreras and she does not do well, she will need re-intubation and a tracheostomy and I am not sure that is acting in Ms. Contreras's long-term best interest. I do believe she is approaching the end of her life. I have relayed this to the daughter. She plans to meet with the family, she says alo. CRITICAL CARE TIME: 30 minutes. Job ID: [id number]
[2019-05-07] MEDS: Atorvastatin Calcium 40 MG TAB PER TUBE SCH (20:26)
[2019-05-08] MEDS: Sodium Chloride 0.9% 1,000 ML IV SCH (05:32)
[2019-05-08 05:49] LABS: Band 12 % (5-11); Eosinophils 1 % (0-10); Hemoglobin 7.3 g/dL (12.0-16.0); Lymphocytes 8 % (21-51); MDiff Complete? YES; Mean Corpuscular HGB CONC 30.5 g/dL (32.0-36.0); Mean Corpuscular Hemoglobin 21.5 pg (27.0-31.0); Mean Corpuscular Volume 70.6 fL (78.0-98.0); Mean Platelet Volume 7.5 fL (7.4-10.4); Monocytes 2 % (0-10); Neutrophil 77 % (42-75); Nucleated RBC 1 % (0); Platelet Count 206 thou/uL (130-400); Platelet Morphology Comment Appears Adequate; RBC Distribution Width 19.7 % (11.5-14.5); Red Blood Cell (RBC) Count 3.41 mill/uL (4.20-5.40); White Blood Cell (WBC) Count 8.8 thou/uL (4.8-10.8)
[2019-05-08 05:51] LABS: Anion Gap 10 mmol/L (10-20); BUN (Urea Nitrogen) 14 mg/dL (9.8-20.1); Calc. Creatinine Clearance 85 mL/min (70-130); Calcium 8.7 mg/dL (7.8-10.44); Carbon Dioxide 19 mmol/L (23-31); Chloride 115 mmol/L (98-107); Estimated GFR-MDRD Greater than 90; Glucose 71 mg/dL (83-110); Sodium 141 mmol/L (136-145)
[2019-05-08 05:55] LABS: Potassium 2.8 mmol/L (3.5-5.1)
[2019-05-08 07:09] LABS: Actual Bicarbonate (HCO3a) 19.2 mEq/L (22-28); Base Excess (BEa) -5.5 mEq/L (-2.0 to +3.0); CO2 Tension 33.7 mmHg (35.0-45.0); Calcium, Ionized 1.31 mmol/L (1.12-1.30); Carboxyhemoglobin (COHb) 1.4 gm% (0.0-3.0); Hemoglobin (Hb) 7.7 g/dL (12.0-16.0); O2 Tension (PaO2) 60.9 mmHg (> 60.0); Potassium - ABG Lab 2.82 mmol/L (3.70-5.30); pH, Arterial 7.37 (7.35-7.45)
[2019-05-08 07:10] LABS: ALV-art Gradient 253.475 (0-20); Puncture Site RRA
--- NOTE | 2019-05-08 07:51 | RAD ---
Portable frontal chest radiograph: 05/08/2019 COMPARISON: 05/07/2019 HISTORY: Ventilated patient FINDINGS: Stable right vascular catheter, endotracheal tube, and nasogastric tube. Stable prominence of the left hilar shadow. This may signify underlying vascular prominence, including possible dilated pulmonary arterial vasculature on the basis of pulmonary arterial hypertension. Underlying ma ss in the left hilar region cannot be excluded. Persistent pleural-parenchymal opacity noted in the left lung base. Nonspecific persistent linear int erstitial density in the right perihilar region. IMPRESSION: Stable appears of the chest as detailed above.
[2019-05-08] MEDS: Potassium Chloride 20 MEQ in Premix Bag 1 BAG IVPB SCH ×2 (07:57→08:51)
[2019-05-08] MEDS: Famotidine/PF 20 mg/2ml Vial SLOW IVP SCH ×2 (08:50→20:21)
[2019-05-08] MEDS: Escitalopram Oxalate 10 mg Tablet PER TUBE SCH (08:51)
[2019-05-08] MEDS: Amiodarone 200 MG TAB PO SCH (08:51)
[2019-05-08] MEDS: Hydrochlorothiazide 25 MG TAB PO SCH (08:51)
[2019-05-08] MEDS: Cefepime 1 GM in Sodium Chloride 0.9% 100 ML IVPB SCH ×2 (08:51→20:21)
[2019-05-08] MEDS: Aspirin Chewable 81 MG TAB PER TUBE SCH (08:51)
[2019-05-08] MEDS: Metoprolol Tartrate 50 MG TAB PER TUBE SCH ×2 (08:52→20:21)
[2019-05-08] MEDS: levETIRAcetam 500 mg/5 ml Oral Solution PER TUBE SCH ×2 (09:02→20:21)
[2019-05-08] MEDS: Losartan 25 MG TAB PO SCH (09:03)
[2019-05-08] MEDS: D5 1/4 NS 1,000 ML IV SCH (12:02)
--- NOTE | 2019-05-08 12:02 | PRG ---
DATE OF SERVICE: 05/08/2019 SUBJECTIVE: Verenice Contreras is clinically unchanged. I met with the daughter again. OBJECTIVE: VITAL SIGNS: Heart rate 60, blood pressure 118/53, respiratory rates in the teens. LUNGS: Remarkable for mild rhonchi. HEART: Regular rhythm. ABDOMEN: Soft. EXTREMITIES: Without edema. LABORATORY DATA: White count 8.8, hemoglobin 7.3, and platelets 206,000. Sodium 141, potassium 2.8, chloride 115, bicarb 19, BUN 14, and creatinine 0.62. IMPRESSION: 1. Respiratory failure, associated with aspiration and inability to clear secretions. 2. Bedridden after a significant hemorrhagic cerebrovascular accident. PLAN: I asked the daughter about the decision regarding code status and they want to continue as a full code. I have explained that it is likely we will extubate her this weekend, and if we have to reintubate her, she will end up with a tracheostomy, living in a skilled nursing with a trach for the rest of her life. I had this discussion at length yesterday. The night nurse had this discussion at length with the daughter who has been living in the ICU. She has a very poor understanding. I basically today had to tell her that her mother was dying, and I am still not even sure she understood that. I recommended against re-intubation, but she is undecided. Hopefully, Palliative Care can make some headway with her. Job ID: [id number]
[2019-05-08] MEDS: fentaNYL Citrate/PF 2,000 MCG in Sodium Chloride 0.9% 60 ML IV SCH (12:21)
[2019-05-08] MEDS: Vancomycin HCl 1.25 GM in Sodium Chloride 0.9% 250 ML 250 ML IVPB SCH (16:13)
--- NOTE | 2019-05-08 16:42 | PDOC.HOSPP ---
- Subjective Encounter Date: 05/08/19 Encounter Time: 12:30 Subjective: i talk to the dtr at several occasoins, and she has a brother as well. she is hoping mother would come home w.Stefano trach. - Objective Vital Signs & Weight: Vital Signs (12 hours) Temp Pulse Pulse Resp BP BP Pulse Ox 05/08/19 16:00 98.9 F 16 05/08/19 15:17 98.9 F 123/56 L 05/08/19 14:23 90 113/57 L 05/08/19 14:00 16 05/08/19 13:30 98.7 F 66 16 109/55 L 100 05/08/19 13:09 98.1 F 58 L 16 118/53 L 100 05/08/19 12:00 98.1 F 16 05/08/19 10:47 59 L 118/53 L 05/08/19 10:00 16 05/08/19 08:00 16 05/08/19 07:24 100 05/08/19 07:00 97.9 F 05/08/19 06:46 64 113/56 L 05/08/19 06:00 98.3 F 16 Weight Admit Weight 154 lb 15.68 oz Weight 167 lb 8.821 oz Most Recent Monitor Data Heart Rate from ECG 58 NIBP 104/47 NIBP BP-Mean 66 Respiration from ECG 16 SpO2 99 I&O: 05/07/19 05/08/19 05/09/19 06:59 06:59 06:59 Intake Total 3186.3 2930 350 Output Total 585 688 220 Balance 2601.3 2242 130 Result Diagrams: 05/08/19 05:17 05/08/19 05:17 Hospitalist ROS - Medication Medications: Active Medications Generic Name Dose Route Start Last Admin Trade Name Freq PRN Reason Stop Dose Admin Amiodarone HCl 400 mg 05/06/19 09:00 05/08/19 08:51 Cordarone PO 400 mg DAILY JOCELINE Administration Aspirin 81 mg 05/06/19 09:00 05/08/19 08:51 Aspirin Chewable PER TUBE 81 mg DAILY JOCELINE Administration Atorvastatin Calcium 40 mg 05/06/19 21:00 05/07/19 20:26 Lipitor PER TUBE 40 mg HS JOCELINE Administration Escitalopram Oxalate 10 mg 05/06/19 09:00 05/08/19 08:51 Lexapro PER TUBE 10 mg DAILY JOCELINE Administration Famotidine 20 mg 05/05/19 21:00 05/08/19 08:50 Pepcid SLOW IVP 20 mg Q12HR JOCELINE Administration Fentanyl Citrate 2,000 mcg/ 100 mls @ 0 mls/hr 05/05/19 11:29 05/08/19 12:21 Sodium Chloride IV 06/04/19 11:29 100 mls INF JOCELINE Administration Protocol Per Protocol Cefepime HCl 1 gm/ Sodium 100 mls @ 200 mls/hr 05/05/19 21:00 05/08/19 08:51 Chloride IVPB 100 mls Q12HR JOCELINE Administration Vancomycin HCl 1.25 gm/ Sodium 250 mls @ 166.667 mls/hr 05/07/19 16:00 16:13 Chloride IVPB 250 mls 1600 JOCELINE Administration Dextrose/Sodium Chloride 1,000 mls @ 75 mls/hr 05/08/19 11:45 05/08/19 12:02 D5 1/4 Ns IV 1,000 mls .[id number] JOCELINE Administration Levetiracetam 100 mg 05/05/19 21:00 05/08/19 09:02 Keppra Oral Solution PER TUBE 100 mg BID JOCELINE Administration Losartan Potassium 100 mg 05/06/19 09:00 05/08/19 09:03 Cozaar PO 100 mg DAILY JOCELINE Administration Metoprolol Tartrate 50 mg 05/05/19 21:00 05/08/19 08:52 Lopressor PER TUBE Not Given BID JOCELINE Sodium Chloride 10 ml 05/05/19 21:00 05/08/19 08:52 Flush - Normal Saline IVF 10 ml Q12HR JOCELINE Administration - Exam General - other findings: intubated. ENT: normocephalic atraumatic Neck: supple Heart: RRR Respiratory: CTAB, normal chest expansion Gastrointestinal: soft, normal bowel sounds Hosp A/P - Plan septic shock 2/2 asp pna requiring intubation and pressor sepsis w.. multi-organ failure ALEXIS Oliguria leukocytosis Metabolic acidosis -cw ivf and pressors --repeat bl charles, here for monitoring -cw vanc, cefepime palliative on board i d/w dtr reg code status she will d/w rest of the family and let us know. Not cuch changes in the pt's status difficult to wean as risk for re-intubation high per pulm\appreciate their care - dtr is hoping that mom would still be back to her baseline after trach placed , if we are considering that option. - explained and re-addressed the code status again. Poor prognosis.
--- NOTE | 2019-05-08 17:17 | PDOC.PALCO ---
Palliative Care Consult - Consult Details Requesting Physician: Dr Salcedo Reason for Consult: goals of care, advance directives assistance, family support Family Members Present: Daughter Alysia - Pertinent HPI 83 year old female how is totally dependent for care secondary to CVA in 2012. Prior to admission lived in a private home with her daughter as primary caregiver, receives nutrition via PEG. Daughter states that her mother was not feeling well, transferred to [facility] and was diagnosed with septic shock. Transferred to [facility] for higher level of care. Was intubatred in the emergency room for acute hypoxic respiratory failure and admitted to CCU. Fragile health state. - Social History Smoking: no tobacco exposure Alcohol Use: none Drug Use History: none Living Situation: other (Lives with [place] in private home, daughter and son primary caregivers) - Medications MAR Reviewed: Yes - Allergies Allergies/Adverse Reactions: Allergies Allergy/AdvReac Type Severity Reaction Status Date / Time No Known Drug Allergies Allergy Verified 11/01/18 01:03 - Subjective Intubated, opens eyes, but non communicative. - ROS Non Response: due to endotracheal tube, due to mental status - Objective Vital Signs: Vital Signs - Most Recent Temp Pulse Resp BP Pulse Ox 98.9 F 90 16 123/56 L 100 05/08/19 16:00 05/08/19 14:23 05/08/19 16:00 05/08/19 15:17 05/08/19 13:30 Palliative Performance Scale: 20 - Physical Exam Constitutional: encephalitic, ill appearing HEENT: EOMI, moist MMs, sclera anicteric Deviation from normal: mechanical ventilation Cardiovascular: RRR Gastrointestinal: soft, non-tender, no distention, incontinent Deviation from normal: PEG Genitourinary: gallardo catheter Musculoskeletal: diffuse muscle atrophy Skin: cap refill <2 seconds Deviation from normal: encelopathic - Problem List (1) Aspiration pneumonia Code(s): J69.0 - PNEUMONITIS DUE TO INHALATION OF FOOD AND VOMIT Current Visit : No Status: Acute (2) Encephalopathy acute Code(s): G93.40 - ENCEPHALOPATHY, UNSPECIFIED Current Visit: No Status: Acute (3) Palliative care encounter Code(s): Z51.5 - ENCOUNTER FOR PALLIATIVE CARE Current Visit: No Status: Acute (4) HTN (hypertension) Code(s): I10 - ESSENTIAL (PRIMARY) HYPERTENSION Current Visit: No Status: Chronic (5) Hemiparesis and other late effects of cerebrovascular accident Code(s): I69.359 - HEMIPLGA FOLLOWING CEREBRAL INFARCTION AFFECTING UNSP SIDE; I69.398 - OTHER SEQUELAE OF CEREBRAL INFARCTION Current Visit: No Status: Chronic (6) On tube feeding diet Code(s): Z78.9 - OTHER SPECIFIED HEALTH STATUS Current Visit: No Status: Chronic (7) Seizure disorder as sequela of cerebrovascular accident Code(s): I69.398 - OTHER SEQUELAE OF CEREBRAL INFARCTION; G40.909 - EPILEPSY, UNSP, NOT INTRACTABLE, WITHOUT STATUS EPILEPTICUS Current Visit: No Status: Chronic - Plan/Recommendations Plan: Revisited DNAR with patient and Goal of care. Lengthy conversation and revisiting what Dr Hernandez and Dr Salcedo had discussed with patient. Initially decided DNAR with her sister on the phone Holli, however when I was going to have her sign the paper she refused and wanted to wait until she talks to patient two sisters. Patient daughter Alysia also confirmed that if her mother survived this hospital stay that she would desire to have her transition home with Hospice, she is already with [facility] and requested to transition to their hospice, however did not want to sign the choice letter until 05/09/2019. Meeting set with Alysia Real patient daughter 9 am tomorrow. She is assigned surrogate by her siblings. [50] minutes spent on this encounter with >50% of the time in counseling and coordination of care. Thank you for this very appropriate consult.
[2019-05-08] MEDS: Atorvastatin Calcium 40 MG TAB PER TUBE SCH (20:21)
[2019-05-09] MEDS: D5 1/4 NS 1,000 ML IV SCH ×2 (04:17→17:49)
[2019-05-09 05:05] LABS: Anion Gap 9 mmol/L (10-20); BUN (Urea Nitrogen) 14 mg/dL (9.8-20.1); Calc. Creatinine Clearance 81 mL/min (70-130); Calcium 8.5 mg/dL (7.8-10.44); Carbon Dioxide 19 mmol/L (23-31); Chloride 113 mmol/L (98-107); Estimated GFR-MDRD Greater than 90; Glucose 97 mg/dL (83-110); Sodium 138 mmol/L (136-145)
[2019-05-09 05:07] LABS: Potassium 2.8 mmol/L (3.5-5.1)
[2019-05-09 05:10] LABS: Hemoglobin 8.9 g/dL (12.0-16.0); Mean Corpuscular HGB CONC 31.2 g/dL (32.0-36.0); Mean Corpuscular Hemoglobin 22.7 pg (27.0-31.0); Mean Corpuscular Volume 72.7 fL (78.0-98.0); Mean Platelet Volume 6.5 fL (7.4-10.4); Platelet Count 203 thou/uL (130-400); RBC Distribution Width 20.5 % (11.5-14.5); Red Blood Cell (RBC) Count 3.91 mill/uL (4.20-5.40); White Blood Cell (WBC) Count 8.7 thou/uL (4.8-10.8)
[2019-05-09 05:11] LABS: Anisocytosis SLIGHT = 6-15 cells (100X) (0-5/hpf); Band 6 % (5-11); Elliptocytes SLIGHT = 2-5 cells (100X) (0-1/hpf); Hypochromia SLIGHT = 6-15 cells (100X) (0-5/hpf); Lymphocytes 16 % (21-51); MDiff Complete? YES; Microcytosis SLIGHT = 6-15 cells (100X) (0-5/hpf); Monocytes 3 % (0-10); Neutrophil 75 % (42-75); Poikilocytosis SLIGHT = 6-15 cells (100X) (0-5/hpf); Schistocytes SLIGHT = 2-5 cells (100X) (0-1/hpf); Tear Drops SLIGHT = 2-5 cells (100X) (0-1/hpf)
[2019-05-09 05:16] VITALS: BMI 32.1
[2019-05-09 07:05] LABS: Actual Bicarbonate (HCO3a) 17.8 mEq/L (22-28); Base Excess (BEa) -6.6 mEq/L (-2.0 to +3.0); CO2 Tension 31.3 mmHg (35.0-45.0); Carboxyhemoglobin (COHb) 0.4 gm% (0.0-3.0); Hemoglobin (Hb) 9.6 g/dL (12.0-16.0); O2 Tension (PaO2) 84.2 mmHg (> 60.0); Potassium - ABG Lab 2.97 mmol/L (3.70-5.30); pH, Arterial 7.37 (7.35-7.45)
[2019-05-09 07:31] LABS: ALV-art Gradient 233.175 (0-20); Puncture Site RRA
[2019-05-09] MEDS ORDERED: PHOS-NAK 1 PKT PACK PO PRN ×2 (08:51)
[2019-05-09] MEDS ORDERED: Potassium Chloride 40 MEQ in Sodium Chloride 0.9% 250 ML 250 ML IVPB PRN (08:51)
[2019-05-09] MEDS ORDERED: Potassium Chloride 20 MEQ TAB PO PRN (08:51)
[2019-05-09] MEDS ORDERED: Potassium Phosphate 12 MMOL in Sodium Chloride 0.9% 250 ML 250 ML IV PRN (08:51)
[2019-05-09] MEDS ORDERED: Potassium Phosphate 9 MMOL in Sodium Chloride 0.9% 100 ML IVPB PRN (08:51)
[2019-05-09] MEDS ORDERED: CCU ELECTROLYTE REPLACEMENT PROTOCOL FS PRN (08:51)
[2019-05-09] MEDS ORDERED: Magnesium Oxide 400 MG TAB PO PRN ×2 (08:51)
[2019-05-09] MEDS ORDERED: Potassium Chloride 40 MEQ in Premix Bag 1 BAG IVPB PRN (08:51)
[2019-05-09] MEDS ORDERED: Magnesium 2 GM/50 ML 2 GM in Premix Bag 1 BAG IVPB PRN (08:51)
[2019-05-09] MEDS ORDERED: Potassium Phosphate 15 MMOL in Sodium Chloride 0.9% 250 ML 250 ML IV PRN (08:51)
[2019-05-09] MEDS: Amiodarone 200 MG TAB PO SCH (09:18)
[2019-05-09] MEDS: Aspirin Chewable 81 MG TAB PER TUBE SCH (09:19)
[2019-05-09] MEDS: Cefepime 1 GM in Sodium Chloride 0.9% 100 ML IVPB SCH ×2 (09:20→20:20)
[2019-05-09] MEDS: levETIRAcetam 500 mg/5 ml Oral Solution PER TUBE SCH ×2 (09:23→20:20)
[2019-05-09] MEDS: Escitalopram Oxalate 10 mg Tablet PER TUBE SCH (09:23)
[2019-05-09] MEDS: Famotidine/PF 20 mg/2ml Vial SLOW IVP SCH ×2 (09:23→20:20)
[2019-05-09] MEDS: Losartan 25 MG TAB PO SCH (09:24)
[2019-05-09] MEDS: Metoprolol Tartrate 50 MG TAB PER TUBE SCH (09:25)
[2019-05-09] MEDS: Vancomycin 1 GM in Premix Bag 1 BAG IVPB SCH (09:58)
--- NOTE | 2019-05-09 10:25 | PDOC.PALPN ---
Palliative Progress Note - Subjective Mechanical ventilation, opens eyes. Nutritional support via PEG, bedbound. - Objective Vital Signs: Vital Signs - Most Recent Temp Pulse Resp BP Pulse Ox 98.6 F 57 L 12 99/45 L 100 05/09/19 07:00 05/09/19 06:42 05/09/19 10:00 05/09/19 06:42 05/08/19 20:00 - Physical Exam Constitutional: encephalitic, ill appearing HEENT: moist MMs, sclera anicteric Deviation from normal: mechanical ventilation Cardiovascular: RRR Gastrointestinal: soft, non-tender, incontinent Deviation from normal: PEG Genitourinary: gallardo catheter Musculoskeletal: diffuse muscle atrophy Deviation from normal: aphagic Skin: cap refill <2 seconds Deviation from normal: encephalopathic - Assessment (1) Aspiration pneumonia Code(s): J69.0 - PNEUMONITIS DUE TO INHALATION OF FOOD AND VOMIT Current Visit : No Status: Acute (2) Encephalopathy acute Code(s): G93.40 - ENCEPHALOPATHY, UNSPECIFIED Current Visit: No Status: Acute (3) Palliative care encounter Code(s): Z51.5 - ENCOUNTER FOR PALLIATIVE CARE Current Visit: No Status: Acute (4) HTN (hypertension) Code(s): I10 - ESSENTIAL (PRIMARY) HYPERTENSION Current Visit: No Status: Chronic (5) Hemiparesis and other late effects of cerebrovascular accident Code(s): I69.359 - HEMIPLGA FOLLOWING CEREBRAL INFARCTION AFFECTING UNSP SIDE; I69.398 - OTHER SEQUELAE OF CEREBRAL INFARCTION Current Visit: No Status: Chronic (6) On tube feeding diet Code(s): Z78.9 - OTHER SPECIFIED HEALTH STATUS Current Visit: No Status: Chronic (7) Seizure disorder as sequela of cerebrovascular accident Code(s): I69.398 - OTHER SEQUELAE OF CEREBRAL INFARCTION; G40.909 - EPILEPSY, UNSP, NOT INTRACTABLE, WITHOUT STATUS EPILEPTICUS Current Visit: No Status: Chronic - Plan Plan: Patient children in agreement for no further resuscitation measures if needed. Hopeful for successful extubation and to return home to the home setting for comfort care under Hospice. DNAR completed Previously on [facility] [employer], family would like to transition to their Hospice services. Choice letter left with patient daughter Alysia Contreras, she wanted to call Ms Dolores siblings again prior to signing choice letter. Continued education in relation to disease trajectory related to decline. Therapeutic listening and emotional support. Communicated with Dr Orozco [45] minutes spent on this encounter with >50% of the time in counseling and coordination of care. - ROS Non Response: due to endotracheal tube, due to mental status
--- NOTE | 2019-05-09 10:38 | RAD ---
CHEST 1 VIEW PORTABLE: HISTORY: Respiratory insufficiency, ventilated patient. FINDINGS: Life support tubes remain in place and stable. Bilateral vascular congestion with somewhat more prom inent pleural and parenchymal opacity changes in the left base as well as stable increased markings i n the right perihilar region. Possibilities including pneumonia and/or atelectasis are considered. Evidence for proximal pulmonary artery dilatation and pulmonary artery hypertension. Continued shor t-term followup. POS: [facility]
[2019-05-09 13:02] LABS: Potassium 3.2 mmol/L (3.5-5.1)
[2019-05-09 14:25] VITALS: BP 98/55
--- NOTE | 2019-05-09 15:02 | PDOC.HOSPP ---
- Subjective Encounter Date: 05/09/19 Encounter Time: 01:34 Subjective: pt is awake and alert but not oriented. dtr states that her mom recognizes her w.. voice. Urine output still less. - Objective Vital Signs & Weight: Vital Signs (12 hours) Temp Pulse Resp BP Pulse Ox 05/09/19 14:23 54 L 98/55 L 05/09/19 11:00 97.6 F 05/09/19 10:18 54 L 104/52 L 05/09/19 10:00 12 05/09/19 08:00 16 100 05/09/19 07:00 98.6 F 05/09/19 06:42 57 L 99/45 L 05/09/19 06:00 16 05/09/19 04:00 98.8 F 16 Weight Admit Weight 154 lb 15.68 oz Weight 174 lb 9.698 oz Most Recent Monitor Data Heart Rate from ECG 61 NIBP 145/66 NIBP BP-Mean 92 Respiration from ECG 17 SpO2 100 I&O: 05/08/19 05/09/19 05/10/19 06:59 06:59 06:59 Intake Total 2930 2907 220 Output Total 688 560 71 Balance 2242 2347 149 Result Diagrams: 05/09/19 04:30 05/09/19 12:29 Hospitalist ROS - Medication Medications: Active Medications Generic Name Dose Route Start Last Admin Trade Name Freq PRN Reason Stop Dose Admin Amiodarone HCl 400 mg 05/06/19 09:00 05/09/19 09:18 Cordarone PO 400 mg DAILY JOCELINE Administration Aspirin 81 mg 05/06/19 09:00 05/09/19 09:19 Aspirin Chewable PER TUBE 81 mg DAILY JOCELINE Administration Atorvastatin Calcium 40 mg 05/06/19 21:00 05/08/19 20:21 Lipitor PER TUBE 40 mg HS JOCELINE Administration Escitalopram Oxalate 10 mg 05/06/19 09:00 05/09/19 09:23 Lexapro PER TUBE 10 mg DAILY JOCELINE Administration Famotidine 20 mg 05/05/19 21:00 05/09/19 09:23 Pepcid SLOW IVP 20 mg Q12HR JOCELINE Administration Fentanyl Citrate 2,000 mcg/ 100 mls @ 0 mls/hr 05/05/19 11:29 05/08/19 12:21 Sodium Chloride IV 06/04/19 11:29 100 mls INF JOCELINE Administration Protocol Per Protocol Cefepime HCl 1 gm/ Sodium 100 mls @ 200 mls/hr 05/05/19 21:00 05/09/19 09:20 Chloride IVPB 100 mls Q12HR JOCELINE Administration Vancomycin HCl 1.25 gm/ Sodium 250 mls @ 166.667 mls/hr 05/07/19 16:00 16:13 Chloride IVPB 250 mls 1600 JOCELINE Administration Dextrose/Sodium Chloride 1,000 mls @ 75 mls/hr 05/08/19 11:45 05/09/19 04:17 D5 1/4 Ns IV 1,000 mls .[id number] JOCELINE Administration Levetiracetam 100 mg 05/05/19 21:00 05/09/19 09:23 Keppra Oral Solution PER TUBE 100 mg BID JOCELINE Administration Losartan Potassium 100 mg 05/06/19 09:00 05/09/19 09:24 Cozaar PO 100 mg DAILY JOCELINE Administration Metoprolol Tartrate 50 mg 05/05/19 21:00 05/09/19 09:25 Lopressor PER TUBE Not Given BID JOCELINE Potassium Chloride 40 meq 05/09/19 08:51 05/09/19 09:26 Klor-Con PER TUBE 40 meq ASDIR PRN Administration FOR SERUM K+ 2.5-3.5 Sodium Chloride 10 ml 05/05/19 21:00 05/09/19 09:25 Flush - Normal Saline IVF 10 ml Q12HR JOCELINE Administration - Exam General - other findings: on vent, awake ENT: normocephalic atraumatic Neck: supple Heart: RRR Respiratory: normal chest expansion, rales Gastrointestinal: soft, normal bowel sounds Gastrointestinal - other findings: peg tube Hosp A/P - Plan septic shock 2/2 asp pna requiring intubation and pressor sepsis w.. multi-organ failure ALEXIS Oliguria leukocytosis Metabolic acidosis -cw ivf and pressors --repeat bl charles, here for monitoring -cw vanc, cefepime palliative on board i d/w dtr reg code status she will d/w rest of the family and let us know. Not cuch changes in the pt's status difficult to wean as risk for re-intubation high per pulm\appreciate their care - dtr is hoping that mom would still be back to her baseline after trach placed , if we are considering that option. - explained and re-addressed the code status again. Poor prognosis. code status changed to DNR.
[2019-05-09 16:15] LABS: Vancomycin, Trough 14.4 ug/mL
[2019-05-09] MEDS: Vancomycin HCl 1.25 GM in Sodium Chloride 0.9% 250 ML 250 ML IVPB SCH (16:44)
[2019-05-09] MEDS: Vancomycin 1.5 GRAM/300 ML BAG 1.5 GM in Premix Bag 1 BAG IVPB SCH (17:41)
--- NOTE | 2019-05-09 19:19 | PRG ---
DATE OF SERVICE: 05/09/2019 SUBJECTIVE: Ms. Contreras has heart rate in the 50s. Her beta yoselyn has been held. I would cut the dose in half. Blood pressure 105/57, respiratory rates in the teens. Minute volume 6 L per minute. OBJECTIVE: LUNGS: Clear. HEART: Regular rhythm. ABDOMEN: Soft. LABORATORY DATA: White count 8.7, hemoglobin 8.9, platelets 203. Electrolytes remarkable only for potassium of 2.8, and 3.2 after replacement. PH is 7.37, CO2 is 31, PO2 is 84. IMPRESSION: 1. Pneumonia, it is mild by radiographic and clinical standards. 2. 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 3. Mild hyperchloremia, it is improving. 4. Mild hyperchloremic acidosis. I have explained to the daughter, who has been living in the room that her mother is ready for extubation. They recommend and have decided that she will not be intubated again and will never have a tracheostomy, which I wholeheartedly support. She says the family can be up here tomorrow for extubation, so we will plan for extubation on Sunday morning while the family can get here. I do not anticipate that she will succumb immediately, but as I have explained to the daughter on a daily basis, she will likely have respiratory issues in the future, possibly in the near future and maybe even before she gets out of the hospital since she has a limited ability to handle secretions. I answered all the daughter's questions I believe to her satisfaction, although she seemed shocked that I was talking about extubating her. I have actually truly talked to her about all of these plans and issues every single day, but it does not appear any of this really registers. I am pleased that they made a decision about not re-intubating her and not performing a tracheostomy in the future. Job ID: [id number]
[2019-05-09] MEDS: Metoclopramide HCl 10 MG/2 ML VIAL IVP SCH (20:20)
[2019-05-09] MEDS: Atorvastatin Calcium 40 MG TAB PER TUBE SCH (20:20)
[2019-05-09] MEDS: Metoprolol Tartrate 25 MG TAB PER TUBE SCH (23:21)
[2019-05-10] MEDS: Metoclopramide HCl 10 MG/2 ML VIAL IVP SCH ×4 (00:10→20:28)
[2019-05-10 05:32] LABS: Anion Gap 7 mmol/L (10-20); BUN (Urea Nitrogen) 11 mg/dL (9.8-20.1); Calc. Creatinine Clearance 88 mL/min (70-130); Calcium 8.3 mg/dL (7.8-10.44); Carbon Dioxide 19 mmol/L (23-31); Chloride 110 mmol/L (98-107); Estimated GFR-MDRD Greater than 90; Glucose 94 mg/dL (83-110); Potassium 3.4 mmol/L (3.5-5.1); Sodium 133 mmol/L (136-145)
[2019-05-10 05:44] LABS: Anisocytosis SLIGHT = 6-15 cells (100X) (0-5/hpf); Band 6 % (5-11); Elliptocytes SLIGHT = 2-5 cells (100X) (0-1/hpf); Eosinophils 1 % (0-10); Hemoglobin 8.7 g/dL (12.0-16.0); Hypochromia SLIGHT = 6-15 cells (100X) (0-5/hpf); Lymphocytes 19 % (21-51); MDiff Complete? YES; Mean Corpuscular HGB CONC 30.5 g/dL (32.0-36.0); Mean Corpuscular Hemoglobin 22.1 pg (27.0-31.0); Mean Corpuscular Volume 72.4 fL (78.0-98.0); Mean Platelet Volume 6.9 fL (7.4-10.4); Microcytosis SLIGHT = 6-15 cells (100X) (0-5/hpf); Monocytes 8 % (0-10); Neutrophil 66 % (42-75); Platelet Count 195 thou/uL (130-400); Platelet Morphology Comment Appears Adequate; Poikilocytosis SLIGHT = 6-15 cells (100X) (0-5/hpf); RBC Distribution Width 20.7 % (11.5-14.5); Red Blood Cell (RBC) Count 3.94 mill/uL (4.20-5.40); Schistocytes SLIGHT = 2-5 cells (100X) (0-1/hpf); Tear Drops SLIGHT = 2-5 cells (100X) (0-1/hpf); White Blood Cell (WBC) Count 8.4 thou/uL (4.8-10.8)
[2019-05-10 06:38] LABS: Actual Bicarbonate (HCO3a) 16.9 mEq/L (22-28); Base Excess (BEa) -7.4 mEq/L (-2.0 to +3.0); Carboxyhemoglobin (COHb) 1.1 gm% (0.0-3.0); Hemoglobin (Hb) 9.9 g/dL (12.0-16.0); O2 Tension (PaO2) 69.4 mmHg (> 60.0); Potassium - ABG Lab 3.71 mmol/L (3.70-5.30); pH, Arterial 7.37 (7.35-7.45)
[2019-05-10 06:55] LABS: Puncture Site RRAD
--- NOTE | 2019-05-10 08:19 | RAD ---
Chest one view HISTORY: Dyspnea. Intubated. Follow-up. COMPARISON: 05/09/2019 FINDINGS: Cardiac silhouette is magnified by projection. Pulmonary vasculature upper limits of normal . Parenchymal opacity at the left lateral lung base and right suprahilar level are unchanged. Mediastinum is midline. Nasogastric tube no longer visualized. Other lines and tubes unchanged in pos ition. Prominent calcification within the aorta. Prominence of the left pulmonary artery is similar in appearance to the previous exam. No evidence of pneumothorax. IMPRESSION: Interval removal of the nasogastric tube. Bilateral infiltrates and other findings are otherwise stable.
[2019-05-10] MEDS: Cefepime 1 GM in Sodium Chloride 0.9% 100 ML IVPB SCH ×2 (08:58→20:27)
[2019-05-10] MEDS: Losartan 25 MG TAB PO SCH (08:59)
[2019-05-10] MEDS: Famotidine/PF 20 mg/2ml Vial SLOW IVP SCH ×2 (08:59→20:28)
[2019-05-10] MEDS: Escitalopram Oxalate 10 mg Tablet PER TUBE SCH (09:00)
[2019-05-10] MEDS: Aspirin Chewable 81 MG TAB PER TUBE SCH (09:00)
[2019-05-10] MEDS: Amiodarone 200 MG TAB PO SCH (09:00)
[2019-05-10] MEDS: levETIRAcetam 500 mg/5 ml Oral Solution PER TUBE SCH ×2 (09:19→20:28)
[2019-05-10] MEDS: D5 1/4 NS 1,000 ML IV SCH (09:52)
[2019-05-10] MEDS: Metoprolol Tartrate 25 MG TAB PER TUBE SCH ×2 (14:16→20:28)
--- NOTE | 2019-05-10 17:18 | PRG ---
DATE OF SERVICE: 05/10/2019 SUBJECTIVE: Verenice Contreras is clinically unchanged. OBJECTIVE: VITAL SIGNS: Respiratory rates in the teens, FiO2 is 40, oximetry is 100%, and blood pressure is 153. LUNGS: Clear. HEART: Regular rhythm. ABDOMEN: Soft. EXTREMITIES: Without asymmetry or edema. IMAGING DATA: Chest x-ray today shows bilateral small infiltrates that are unchanged. LABORATORY DATA: White count 8.4, hemoglobin 8.7, and platelets 195. Electrolytes; sodium 133, potassium 3.4, chloride 110, bicarb 19, BUN 11, and creatinine 0.63. IMPRESSION: 1. Status post cerebrovascular accident, chronically bedridden with extreme deconditioning. 2. Inability to handle secretions. 3. Aspiration pneumonia. PLAN: Family wanted to wait till tomorrow to extubate her. The plan is to extubate her. Proceed forward with comfort care. Job ID: [id number]
[2019-05-10] MEDS: Vancomycin 1.5 GRAM/300 ML BAG 1.5 GM in Premix Bag 1 BAG IVPB SCH (18:22)
--- NOTE | 2019-05-10 19:08 | PDOC.HOSPP ---
- Subjective Encounter Date: 05/10/19 Encounter Time: 18:50 Subjective: f/u for resp failure on mech ventilation due to likely aspiration PNA and sepsis. Receiving Cefepime/Vanc and slowly weaning off mech vent. TF's held due to high residuals. - Objective Vital Signs & Weight: Vital Signs (12 hours) Temp Pulse Resp Pulse Ox 05/10/19 18:00 18 05/10/19 16:00 15 05/10/19 15:00 98.4 F 05/10/19 14:00 17 05/10/19 13:59 69 05/10/19 12:00 17 05/10/19 11:00 98.6 F 05/10/19 10:57 63 05/10/19 10:00 16 05/10/19 08:00 24 H 100 Weight Admit Weight 154 lb 15.68 oz Weight 181 lb 14.102 oz Most Recent Monitor Data Heart Rate from ECG 69 NIBP 134/60 NIBP BP-Mean 84 Respiration from ECG 16 SpO2 100 I&O: 05/09/19 05/10/19 05/11/19 06:59 06:59 06:59 Intake Total 2907 1343 3214 Output Total 560 566 985 Balance 2348 767 1313 Result Diagrams: 05/10/19 04:50 05/10/19 04:50 Additional Labs: Laboratory Tests 05/07/19 05/07/19 05/08/19 04:31 Unknown 05:17 Hgb 7.6 L Potassium 2.8 L* Vancomycin Trough 11.0 05/08/19 05/09/19 05/09/19 05:17 04:30 04:30 Hgb 7.3 L 8.9 L Potassium 2.8 L* Vancomycin Trough 05/09/19 05/09/19 12:29 15:40 Hgb Potassium 3.2 L Vancomycin Trough 14.4 Radiology Reviewed by me: Yes (PCXR - bilat infiltrates, ETT in place) EKG Reviewed by me: Yes (Tele - SR) Hospitalist ROS - Medication Medications: Active Medications Generic Name Dose Route Start Last Admin Trade Name Freq PRN Reason Stop Dose Admin Amiodarone HCl 400 mg 05/06/19 09:00 05/10/19 09:00 Cordarone PO 400 mg DAILY JOCELINE Administration Aspirin 81 mg 05/06/19 09:00 05/10/19 09:00 Aspirin Chewable PER TUBE 81 mg DAILY JOCELINE Administration Atorvastatin Calcium 40 mg 05/06/19 21:00 05/09/19 20:20 Lipitor PER TUBE 40 mg HS JOCELINE Administration Escitalopram Oxalate 10 mg 05/06/19 09:00 05/10/19 09:00 Lexapro PER TUBE 10 mg DAILY JOCELINE Administration Famotidine 20 mg 05/05/19 21:00 05/10/19 08:59 Pepcid SLOW IVP 20 mg Q12HR JOCELINE Administration Fentanyl Citrate 2,000 mcg/ 100 mls @ 0 mls/hr 05/05/19 11:29 05/08/19 12:21 Sodium Chloride IV 06/04/19 11:29 100 mls INF JOCELINE Administration Protocol Per Protocol Cefepime HCl 1 gm/ Sodium 100 mls @ 200 mls/hr 05/05/19 21:00 05/10/19 08:58 Chloride IVPB 100 mls Q12HR JOCELINE Administration Dextrose/Sodium Chloride 1,000 mls @ 75 mls/hr 05/08/19 11:45 05/10/19 09:52 D5 1/4 Ns IV 1,000 mls .[id number] JOCELINE Administration Vancomycin HCl 1.5 gm/ Device 300 mls @ 200 mls/hr 05/09/19 17:00 05/10/19 18 :22 IVPB 300 mls 1700 JOCELINE Administration Levetiracetam 100 mg 05/05/19 21:00 05/10/19 09:19 Keppra Oral Solution PER TUBE 100 mg BID JOCELINE Administration Losartan Potassium 100 mg 05/06/19 09:00 05/10/19 08:59 Cozaar PO 100 mg DAILY JOCELINE Administration Metoclopramide HCl 10 mg 05/09/19 18:30 05/10/19 12:42 Reglan IVP 10 mg Q6H JOCELINE Administration Metoprolol Tartrate 25 mg 05/09/19 21:00 05/10/19 14:16 Lopressor PER TUBE 25 mg BID JOCELINE Administration Potassium Chloride 40 meq 05/09/19 08:51 05/10/19 05:59 Klor-Con PER TUBE 40 meq ASDIR PRN Administration FOR SERUM K+ 2.5-3.5 Sodium Chloride 10 ml 05/05/19 21:00 05/10/19 09:24 Flush - Normal Saline IVF 10 ml Q12HR JOCELINE Administration - Exam General - other findings: sedate on mech ventilation Eye: PERRL, anicteric sclera ENT: normocephalic atraumatic, no oropharyngeal lesions ENT - other findings: ETT in place Neck: supple, symmetric, no JVD, no thyromegaly Heart: RRR, no murmur, no gallops, no rubs, normal peripheral pulses Heart - other findings: S1, S2 Respiratory - other findings: diminished in bases bilat, few scattered coarse sounds Gastrointestinal: soft, non-tender, non-distended, no palpable masses, no hepatomegaly, diminished bowl sounds Gastrointestinal - other findings: [place] with clear urine Extremities: no cyanosis, no clubbing Skin: normal turgor, no lesions Musculoskeletal: generalized weakness Psychiatric: oriented to person Hosp A/P (1) Acute respiratory failure with hypoxia Code(s): J96.01 - ACUTE RESPIRATORY FAILURE WITH HYPOXIA Status: Acute Plan: Continue mech ventilation, plan for extubation tentatively in next 24h (2) Sepsis due to pneumonia Code(s): J18.9 - PNEUMONIA, UNSPECIFIED ORGANISM; A41.9 - SEPSIS, UNSPECIFIED ORGANISM Status: Acute Plan: Continue Cefepime/Vancomycin (3) Aspiration pneumonia Code(s): J69.0 - PNEUMONITIS DUE TO INHALATION OF FOOD AND VOMIT Status: Acute Plan: See above, continue pulmonary supportive mgmt (4) Hemiparesis and other late effects of cerebrovascular accident Code(s): I69.359 - HEMIPLGA FOLLOWING CEREBRAL INFARCTION AFFECTING UNSP SIDE; I69.398 - OTHER SEQUELAE OF CEREBRAL INFARCTION Status: Chronic Plan: PT/OT evaluation once extubated (5) Hypokalemia Code(s): E87.6 - HYPOKALEMIA Status: Acute Plan: Continue KCL supplementation, serial K+ monitoring - Plan continue antibiotics, PT/OT, health and social care teacher, speech therapy, respiratory therapy, DVT proph w/SCDs Continue supportive mgmt ? extubation in next 24h TF's on hold due to high residuals, continue Reglan Continue Cefepime/Vancomycin Palliative care consult AM lab: BMP, CBC, Vanc trough
[2019-05-10] MEDS: Atorvastatin Calcium 40 MG TAB PER TUBE SCH (20:28)
[2019-05-11] MEDS: Metoclopramide HCl 10 MG/2 ML VIAL IVP SCH ×3 (00:02→12:30)
[2019-05-11] MEDS: D5 1/4 NS 1,000 ML IV SCH ×2 (00:02→12:30)
[2019-05-11 04:55] LABS: Anion Gap 8 mmol/L (10-20); BUN (Urea Nitrogen) 14 mg/dL (9.8-20.1); Calc. Creatinine Clearance 99 mL/min (70-130); Calcium 8.7 mg/dL (7.8-10.44); Carbon Dioxide 19 mmol/L (23-31); Chloride 112 mmol/L (98-107); Estimated GFR-MDRD Greater than 90; Glucose 98 mg/dL (83-110); Potassium 4.2 mmol/L (3.5-5.1); Sodium 135 mmol/L (136-145)
[2019-05-11 05:32] LABS: Anisocytosis SLIGHT = 6-15 cells (100X) (0-5/hpf); Band 5 % (5-11); Elliptocytes SLIGHT = 2-5 cells (100X) (0-1/hpf); Eosinophils 1 % (0-10); Hemoglobin 9.3 g/dL (12.0-16.0); Hypochromia SLIGHT = 6-15 cells (100X) (0-5/hpf); Lymphocytes 13 % (21-51); MDiff Complete? YES; Mean Corpuscular HGB CONC 30.7 g/dL (32.0-36.0); Mean Corpuscular Hemoglobin 22.1 pg (27.0-31.0); Mean Corpuscular Volume 72.1 fL (78.0-98.0); Mean Platelet Volume 7.9 fL (7.4-10.4); Microcytosis SLIGHT = 6-15 cells (100X) (0-5/hpf); Monocytes 12 % (0-10); Neutrophil 69 % (42-75); Platelet Count 219 thou/uL (130-400); Platelet Morphology Comment Appears Adequate; Poikilocytosis SLIGHT = 6-15 cells (100X) (0-5/hpf); RBC Distribution Width 21.1 % (11.5-14.5); Red Blood Cell (RBC) Count 4.21 mill/uL (4.20-5.40); Schistocytes SLIGHT = 2-5 cells (100X) (0-1/hpf); Tear Drops SLIGHT = 2-5 cells (100X) (0-1/hpf); White Blood Cell (WBC) Count 9.1 thou/uL (4.8-10.8)
[2019-05-11 06:57] LABS: O2 Tension (PaO2) 93.9 mmHg (> 60.0); pH, Arterial 7.37 (7.35-7.45)
[2019-05-11 06:58] LABS: Actual Bicarbonate (HCO3a) 16.8 mEq/L (22-28); Analyzer IN Cardio OR; Base Excess (BEa) -7.5 mEq/L (-2.0 to +3.0); Calcium, Ionized 1.31 mmol/L (1.12-1.30); Carboxyhemoglobin (COHb) 0.1 gm% (0.0-3.0); Hemoglobin (Hb) 9.9 g/dL (12.0-16.0); Puncture Site RRAD
--- NOTE | 2019-05-11 07:52 | RAD ---
Chest one view HISTORY: Intubated. Dyspnea. Follow-up. COMPARISON: 05/10/2019. FINDINGS: Cardiac silhouette is magnified by projection. Pulmonary vasculature is more engorged than on the prior study. Blunting of the left lateral costophrenic angle and calcification at the left base are unchanged. Patchy bibasilar infiltrates are unchanged allowing for differences in technique. Mediastinum is midline with prominence of the left pulmonary artery and calcification in the aorta. L demarcus and tubes are unchanged in position. IMPRESSION: Bilateral infiltrates, left pleural fluid, and other findings are stable.
[2019-05-11] MEDS: Amiodarone 200 MG TAB PO SCH (09:36)
[2019-05-11] MEDS: Aspirin Chewable 81 MG TAB PER TUBE SCH (09:36)
[2019-05-11] MEDS: Cefepime 1 GM in Sodium Chloride 0.9% 100 ML IVPB SCH (09:36)
[2019-05-11] MEDS: Metoprolol Tartrate 25 MG TAB PER TUBE SCH (09:37)
[2019-05-11] MEDS: Losartan 25 MG TAB PO SCH (09:37)
[2019-05-11] MEDS: Escitalopram Oxalate 10 mg Tablet PER TUBE SCH (09:37)
[2019-05-11] MEDS: Famotidine/PF 20 mg/2ml Vial SLOW IVP SCH (09:37)
[2019-05-11] MEDS: levETIRAcetam 500 mg/5 ml Oral Solution PER TUBE SCH (09:37)
[2019-05-11] MEDS ORDERED: Scopolamine 1.5 mg/72 hour Patch TOP SCH (12:45)
[2019-05-11 13:16] VITALS: TEMP 98
[2019-05-11] MEDS ORDERED: D5 1/4 NS 1,000 ML IV SCH (13:55)
[2019-05-11] MEDS ORDERED: Morphine 4 MG/ML VIAL ONE (13:56)
[2019-05-11] MEDS ORDERED: Lorazepam 2 MG/ML VIAL ONE (14:00)
[2019-05-11] MEDS ORDERED: Lorazepam 2 MG/ML VIAL SLOW IVP PRN (14:05)
[2019-05-11] MEDS ORDERED: Morphine 4 MG/ML VIAL SLOW IVP PRN (14:06)
--- NOTE | 2019-05-11 18:38 | DIS ---
DATE OF ADMISSION: 05/05/2019 DATE OF DISCHARGE: 05/11/2019 SUMMARY: DATE OF EXPIRATION: 05/11/2019. FINAL DIAGNOSES: 1. Acute hypoxic respiratory failure secondary to #2. 2. Sepsis secondary to pneumonia, suspected aspiration component. 3. Aspiration pneumonia. 4. Cerebrovascular accident with residual left hemiparesis and bed-bound status. 5. Hypokalemia. CONSULTATIONS: 1. Dr. Hernandez with Pulmonology Service. 2. Palliative Care Service. PERTINENT LABORATORY AND X-RAY FINDINGS: Potassium ranged between 2.8 to 4.6. CO2 ranged between 19 to 20. Lactic acid level ranged between 3.9 to 8.5. CBC showed a white blood cell count ranging between 8.4 to 14.2, hemoglobin ranged between 7.3 to 10.1. Blood cultures x2 dated 05/05/2019 showed no growth at 5 days. Influenza A and B antigen negative 05/05/2019. Portable chest x-ray dated 05/05/2019 showed appropriate positioning of endotracheal tube. Opacity in the left suprahilar region. Portable chest x-ray dated 05/08/2019 showed persistent pleural and parenchymal opacity in the left lung base. Portable chest x-ray dated 05/11/2019 showed blunting of the left lateral costophrenic angle. Bilateral infiltrates noted. HOSPITAL COURSE: The patient was initially admitted after presenting with increased shortness of breath and nausea and vomiting in the context of prior CVA with nutrition per PEG tube feeds and concern for aspiration with pneumonia. The patient was initially treated for sepsis and septic shock with initial lactic acid level of 7. The patient was placed on broad-spectrum IV antibiotic therapy with vancomycin and cefepime and given IV fluid resuscitation. The patient continued on mechanical ventilation due to respiratory failure and received aggressive pulmonary supportive management throughout the hospital course. PEG tube feeds were held due to concern for aspiration and the patient was treated with Reglan. The patient continued on broad-spectrum IV cefepime and vancomycin with discussions with family members regarding goals of care given patient's comorbid status, prior CVA and limited mobility. After aggressive medical and pulmonary support, the patient did not significantly clinically improve. Palliative care services met with the family who decided to pursue comfort care and terminal extubation. The patient was subsequently terminally extubated on 05/11/2019, expiring at 14:09 p.m. Family were present at the bedside and decedent affairs were notified. Job ID: [id number]
--- NOTE | 2019-05-12 10:27 | PRG ---
DATE OF SERVICE: 05/11/2019 SUBJECTIVE: Ms. Contreras was stable overnight. She had her eyes open. She would not follow commands. Plan was to extubate the patient once family arrived today. OBJECTIVE: LUNGS: Clear. HEART: Regular rhythm. ABDOMEN: Soft. LABORATORY DATA: White count 9.1, hemoglobin 9.3, platelets 219. A pH 7.37, CO2 of 30, and pO2 93. Sodium 135, potassium 4.2, chloride 112, bicarb 19, creatinine 0.58. IMPRESSION: Respiratory failure associated with end-stage deconditioning after stroke and mild pneumonia. Family apparently arrived after temple today. They have agreed to go ahead with the extubation. Surprisingly, Ms. Contreras only made it for about 2 minutes and then peacefully. Body will be released. Job ID: [id number]
== END 2019-05-11 15:15 | disposition expired | DRG 870 ==
LOC: ERS 08:28 → CCU 09:41
PROVIDERS: ADMIT Internal Medicine; ATTEND Internal Medicine
PROC: 0BH17EZ Insertion of Endotracheal Airway into Trachea, Via Natural or Artificial Opening (ICD-10-PCS; principal; 2019-05-05)
PROC: 5A1955Z Respiratory Ventilation, Greater than 96 Consecutive Hours (ICD-10-PCS; 2019-05-05)
PROC: 3E033XZ Introduction of Vasopressor into Peripheral Vein, Percutaneous Approach (ICD-10-PCS; 2019-05-05)
PROC: 02HV33Z Insertion of Infusion Device into Superior Vena Cava, Percutaneous Approach (ICD-10-PCS; 2019-05-05)
PROC: 30233N1 Transfusion of Nonautologous Red Blood Cells into Peripheral Vein, Percutaneous Approach (ICD-10-PCS; 2019-05-08)
DX: A41.9 Sepsis, unspecified organism (principal); J69.0 Pneumonitis due to inhalation of food and vomit; J96.01 Acute respiratory failure with hypoxia; R65.21 Severe sepsis with septic shock; I69.354 Hemiplegia and hemiparesis following cerebral infarction affecting left non-dominant side; E87.2 Acidosis; N17.9 Acute kidney failure, unspecified; R64 Cachexia; G93.40 Encephalopathy, unspecified; Z66 Do not resuscitate; Z51.5 Encounter for palliative care; D64.9 Anemia, unspecified; E87.6 Hypokalemia; I95.9 Hypotension, unspecified; E87.8 Other disorders of electrolyte and fluid balance, not elsewhere classified; R53.81 Other malaise; G40.901 Epilepsy, unspecified, not intractable, with status epilepticus; I10 Essential (primary) hypertension; E78.5 Hyperlipidemia, unspecified; Z74.01 Bed confinement status; Z93.1 Gastrostomy status; I69.320 Aphasia following cerebral infarction; Z79.01 Long term (current) use of anticoagulants; Z68.33 Body mass index [BMI] 33.0-33.9, adult
CPT/HCPCS: 31500; 36430; 36556; 71045; 80048; 80202; 82805; 83605; 83735; 85007; 85027; 86850; 86900; 86901; 87804; 94002; 94003; 96361; 96365; 96375; 96376; J0692; J2060; J2250; J2270; J2765; J3010; J3370; J3480; J3490; J7050; P9016; S0028